=== PATIENT | female | born 1940 | race Caucasian/White ===

== ENCOUNTER 2016-06-01 09:47 | Observation (INO) ==
[2016-06-01] MEDS ORDERED: Ondansetron 4 MG/2 ML VIAL IV ONE (10:22)
[2016-06-01] MEDS ORDERED: 0.9 % Sodium Chloride 500 ML IV ONE (10:22)
[2016-06-01] MEDS ORDERED: *HR* HYDROmorphone (PF) 1 MG/ML SYRINGE IV ONE (10:22)
--- NOTE | 2016-06-01 10:28 | Emergency Department Note ---
Disposition Clinical Impression: Elevated troponin, Weakness, Hypokalemia, Opiate withdrawal Disposition: Admitted As Inpatient Condition: Fair Referrals: NO,PCP [Primary Care Provider] - Forms: ED Satisfaction Letter Time of Disposition: 15:24 Weakness HPI - General Chief complaint: ED Fall Stated complaint: fall Time Seen by Provider: 06/01/16 10:17 Source: patient, EMS Mode of arrival: EMS Nursing Notes Reviewed: Yes Vital Signs Reviewed: Yes - History of Present Illness Pt Subjective Complaint: generalized weakness/fatigue, other (Fall) Onset (ago): Just MOONER (Patient's fall was prior to arrival. She states she got weak while trying to ambulate without her walker and fell down onto her [place] and now has tailbone pain. Her weakness has been going on for a little bit more than a week. It started the day after she ran out of her chronic pain medications and has been unable to get them refilled since then.) Duration: constant Location: generalized Pain Severity: severe (She has tailbone pain that is severe since the fall this morning but has generalized arthritis pain that has been progressively worsening since running out of her pain medications a little over a week ago.) Pain Scale: 10 If pain, quality: sharp Improves with: none Worsens with: movement Associated symptoms: Reports: nausea/vomiting, myalgias, other (Other than the tailbone pain, the patient denies any injuries as a result of the fall. She denies striking her head. She denies any loss of consciousness.) - Related Data Home Medications Medication Instructions Recorded Confirmed Citalopram Hydrobromide [Celexa] 20 mg PO DAILY 06/01/16 06/01/16 Diltiazem CD (24hr) [Cardizem CD] 240 mg PO DAILY 06/01/16 06/01/16 Furosemide [Lasix] 20 mg PO DAILY 06/01/16 06/01/16 Meclizine HCl [Verticalm] 25 mg PO BID PRN 06/01/16 06/01/16 Omeprazole [PriLOSEC] 20 mg PO DAILY 06/01/16 06/01/16 Potassium Chloride [Klor-Con 10 meq PO BID 06/01/16 06/01/16 Sprinkle] Simvastatin [Zocor] 20 mg PO HS 06/01/16 06/01/16 Zolpidem [Ambien] 5 mg PO HS 06/01/16 06/01/16 Allergies Allergy/AdvReac Type Severity Reaction Status Date / Time morphine Allergy Nausea Verified 06/01/16 12:10 All systems ED: reviewed and negative except as stated. Constitutional: Denies: fever, chills ENT ED: Denies: ear pain, throat pain, congestion Cardiovascular: Denies: chest pain, palpitations, dyspnea on exertion, syncope Respiratory: Denies: cough, dyspnea, wheezes Gastrointestinal: Reports: nausea. Denies: abdominal pain, diarrhea Musculoskeletal: Reports: back pain (Tailbone). Denies: neck pain Integumentary: Denies: rash Neurological: Reports: weakness (Generalized). Denies: headache Past Medical History - Past Medical History Attestation: Yes The following information was validated with the patient. Source: patient, old records reviewed, obtained from family, nursing notes reviewed Medical history: Reports: CVA, fibromyalgia, GERD, hyperlipidemia, hypertension Surgical history: Reports: herniorrhaphy, hip replacement, hysterectomy, knee replacement - Social History Smoking Status: Never smoker Alcohol use: Reports: none Drug use: Reports: none Physical Exam - General Limitations: age General appearance: alert, in no apparent distress - Head Head exam: atraumatic, normocephalic - Eye Eye exam: Present: normal appearance, PERRL, EOMI - ENT ENT exam: normal exam, normal oropharynx, mucous membranes moist, normal external ear exam - Neck Neck exam: Present: normal inspection, full ROM. Absent: tenderness - Chest Chest inspection: Present: normal inspection, symmetric chest wall rise. Absent : tenderness - Respiratory Respiratory exam: Present: normal lung sounds bilaterally. Absent: respiratory distress - Cardiovascular Cardiovascular exam: Present: regular rate, normal rhythm, normal heart sounds - Abdominal Exam Abdominal exam: Present: soft, Non-Tender - Extremities Exam Extremities exam: Present: normal inspection, full ROM - Back Exam Back exam: Present: full ROM - Neurological Exam Neurological exam: Present: alert, oriented X3 - Psychiatric Psychiatric exam: Present: normal affect, normal mood - Skin Skin exam: Present: warm, dry, intact Course Course Narrative: Patient presents with a couple of issues. The predominant issue this morning was that she fell and landed on her buttocks and now has tailbone pain. We will image her back and tailbone and get her some medications for symptom relief. Second issue is that she is having what sounds like opiate withdrawal symptoms including generalized weakness, nausea, diffuse myalgias. She has significant chronic pain issues and has been on OxyContin for over 2 years. She states that she saw her pain management physician and he stopped the OxyContin. The pain medicines I gave her for her tailbone should help her acutely with withdrawal symptoms but she is going to need to have her chronic pain managed as well. I am going to do a workup to make sure there is no other cause of general weakness and nausea. I will have addiction social worker evaluate the patient as well. - Reevaluation(s) Reevaluation #1: Patient presents after a fall at home. There is no sign of mechanical injury after the fall based on evaluation and imaging. A lot of her symptoms certainly do sound like opiate withdrawal given that she was on 80 mg of OxyContin and abruptly discontinued from it about a week ago. She is having some nausea and some diarrhea. However I do not feel that her weakness is entirely related to that. She has an elevated white count 20,000 although I cannot find a source of infection. She also has an elevated troponin. She also has hypokalemia. I spoke to the hospitalist and we will arrange to admit the patient to the hospital. Time: 15:23 - Consultations Consultation #1: Dr. Rodriguez, hospitalist - I discussed the case with the hospitalist. We talked about presentation and lab results. The patient has been accepted for admission. Time: 15:22 Vital Signs Temperature 98 F 06/01/16 09:49 Pulse Rate 50 06/01/16 09:49 Respiratory Rate 18 06/01/16 09:49 Blood Pressure 161/72 06/01/16 09:49 O2 Sat by Pulse Oximetry 96 06/01/16 09:49 Temperature 98 F 06/01/16 09:49 Pulse Rate 70 06/01/16 14:48 Respiratory Rate 16 06/01/16 14:48 Blood Pressure 149/74 06/01/16 14:48 O2 Sat by Pulse Oximetry 95 06/01/16 14:48 Oxygen Delivery Oxygen Delivery Nasal Cannula Weakness - Lab Data Result diagrams: 06/01/16 10:50 06/01/16 10:50 Lab Results 06/01/16 06/01/16 06/01/16 Range/Units 10:50 10:50 10:50 WBC 20.1 H (4.3-11.1) K/mcL RBC 5.24 H (3.82-4.97) M/mcL Hgb 15.5 H (11.5-15.4) g/dL Hct 46.1 H (35.3-44.9) % MCV 88.0 (83.0-100.0) fL MCH 29.6 (28.0-33.3) pg MCHC 33.6 (31.6-35.5) g/dL RDW 12.9 (11.5-14.5) % Plt Count 488 H (140-400) K/mcL MPV 9.5 (9.4-12.4) fL Immature Gran % 0.4 (0-4) % Seg Neutrophils % 87.6 % Lymphocytes % 6.6 % Monocytes % 5.2 % Eosinophils % 0.0 % Basophils % 0.2 % Neutrophils # 17.6 H (1.6-8.9) K/mcL Lymphocytes # 1.3 (0.6-4.6) K/mcL Monocytes # 1.1 (0.0-1.3) K/mcL Eosinophils # 0.0 (0.0-0.6) K/mcL Basophils # 0.0 (0.0-0.2) K/mcL Sodium 135 L (136-145) mEq/L Potassium 2.4 L* (3.5-4.5) mEq/L Chloride 94 L (98-109) mEq/L Carbon Dioxide 21 (19-29) mEq/L BUN 12 (7-20) mg/dL Creatinine 1.11 (0.57-1.11) mg/dL Est GFR ( Amer) 58 L (> 60) Est GFR (Non-Af Amer) 48 L (> 60) BUN/Creatinine Ratio 11 (6-26) Glucose 154 H (70-99) mg/dL Calculated Osmolality 283 (280-300) Lactic Acid (0.5-2.2) mmol/L Calcium 10.1 (8.6-10.8) mg/dL Total Bilirubin 1.1 (0.2-1.2) mg/dL Direct Bilirubin 0.4 (0.0-0.5) mg/dL Indirect Bilirubin 0.7 (0.0-1.2) mg/dL AST 36 H (5-34) Units/L ALT 30 (0-55) Units/L Alkaline Phosphatase 136 H (38-126) Units/L Troponin I 0.07 H* (0-0.03) ng/mL B-Natriuretic Peptide (0-100) pg/mL Serum Total Protein 7.8 (6.0-8.3) g/dL Albumin 4.4 (3.5-5.0) g/dL Globulin 3.4 (2.4-3.5) g/dL Albumin/Globulin Ratio 1.3 (1.1-2.2) Lipase 23 (8-78) Units/L Urine Color (Yellow) Urine Clarity (Clear) Urine pH (5.0-8.0) pH Units Ur Specific [place] (1.010-1.025) Urine Protein (Neg-Trace) mg/dL Urine Glucose (UA) (Normal) mg/dL Urine Ketones (Negative) mg/dL Urine Blood (Negative) Urine Nitrite (Negative) Urine Bilirubin (Negative) Urine Urobilinogen (Normal) mg/dL Ur Leukocyte Esterase (Negative) Urine Microscopic RBC (0-3) per hpf Urine Microscopic WBC (0-3) per hpf Ur Squamous Epith Cells (None-Few) per lpf Urine Bacteria (None-Few) per hpf Hyaline Casts (None-Few) per lpf Urine Mucus (Few) Ur Culture Indicated? (NO) Specimen Rejected 06/01/16 06/01/16 06/01/16 Range/Units 10:50 10:50 11:37 WBC (4.3-11.1) K/mcL RBC (3.82-4.97) M/mcL Hgb (11.5-15.4) g/dL Hct (35.3-44.9) % MCV (83.0-100.0) fL MCH (28.0-33.3) pg MCHC (31.6-35.5) g/dL RDW (11.5-14.5) % Plt Count (140-400) K/mcL MPV (9.4-12.4) fL Immature Gran % (0-4) % Seg Neutrophils % % Lymphocytes % % Monocytes % % Eosinophils % % Basophils % % Neutrophils # (1.6-8.9) K/mcL Lymphocytes # (0.6-4.6) K/mcL Monocytes # (0.0-1.3) K/mcL Eosinophils # (0.0-0.6) K/mcL Basophils # (0.0-0.2) K/mcL Sodium (136-145) mEq/L Potassium (3.5-4.5) mEq/L Chloride (98-109) mEq/L Carbon Dioxide (19-29) mEq/L BUN (7-20) mg/dL Creatinine (0.57-1.11) mg/dL Est GFR ( Amer) (> 60) Est GFR (Non-Af Amer) (> 60) BUN/Creatinine Ratio (6-26) Glucose (70-99) mg/dL Calculated Osmolality (280-300) Lactic Acid 1.2 (0.5-2.2) mmol/L Calcium (8.6-10.8) mg/dL Total Bilirubin (0.2-1.2) mg/dL Direct Bilirubin (0.0-0.5) mg/dL Indirect Bilirubin (0.0-1.2) mg/dL AST (5-34) Units/L ALT (0-55) Units/L Alkaline Phosphatase (38-126) Units/L Troponin I (0-0.03) ng/mL B-Natriuretic Peptide 181 H (0-100) pg/mL Serum Total Protein (6.0-8.3) g/dL Albumin (3.5-5.0) g/dL Globulin (2.4-3.5) g/dL Albumin/Globulin Ratio (1.1-2.2) Lipase (8-78) Units/L Urine Color (Yellow) Urine Clarity (Clear) Urine pH (5.0-8.0) pH Units Ur Specific [place] (1.010-1.025) Urine Protein (Neg-Trace) mg/dL Urine Glucose (UA) (Normal) mg/dL Urine Ketones (Negative) mg/dL Urine Blood (Negative) Urine Nitrite (Negative) Urine Bilirubin (Negative) Urine Urobilinogen (Normal) mg/dL Ur Leukocyte Esterase (Negative) Urine Microscopic RBC (0-3) per hpf Urine Microscopic WBC (0-3) per hpf Ur Squamous Epith Cells (None-Few) per lpf Urine Bacteria (None-Few) per hpf Hyaline Casts (None-Few) per lpf Urine Mucus (Few) Ur Culture Indicated? (NO) Specimen Rejected Hemolyzed 06/01/16 Range/Units 14:31 WBC (4.3-11.1) K/mcL RBC (3.82-4.97) M/mcL Hgb (11.5-15.4) g/dL Hct (35.3-44.9) % MCV (83.0-100.0) fL MCH (28.0-33.3) pg MCHC (31.6-35.5) g/dL RDW (11.5-14.5) % Plt Count (140-400) K/mcL MPV (9.4-12.4) fL Immature Gran % (0-4) % Seg Neutrophils % % Lymphocytes % % Monocytes % % Eosinophils % % Basophils % % Neutrophils # (1.6-8.9) K/mcL Lymphocytes # (0.6-4.6) K/mcL Monocytes # (0.0-1.3) K/mcL Eosinophils # (0.0-0.6) K/mcL Basophils # (0.0-0.2) K/mcL Sodium (136-145) mEq/L Potassium (3.5-4.5) mEq/L Chloride (98-109) mEq/L Carbon Dioxide (19-29) mEq/L BUN (7-20) mg/dL Creatinine (0.57-1.11) mg/dL Est GFR ( Amer) (> 60) Est GFR (Non-Af Amer) (> 60) BUN/Creatinine Ratio (6-26) Glucose (70-99) mg/dL Calculated Osmolality (280-300) Lactic Acid (0.5-2.2) mmol/L Calcium (8.6-10.8) mg/dL Total Bilirubin (0.2-1.2) mg/dL Direct Bilirubin (0.0-0.5) mg/dL Indirect Bilirubin (0.0-1.2) mg/dL AST (5-34) Units/L ALT (0-55) Units/L Alkaline Phosphatase (38-126) Units/L Troponin I (0-0.03) ng/mL B-Natriuretic Peptide (0-100) pg/mL Serum Total Protein (6.0-8.3) g/dL Albumin (3.5-5.0) g/dL Globulin (2.4-3.5) g/dL Albumin/Globulin Ratio (1.1-2.2) Lipase (8-78) Units/L Urine Color Yellow (Yellow) Urine Clarity Clear (Clear) Urine pH 6.0 (5.0-8.0) pH Units Ur Specific [place] 1.025 (1.010-1.025) Urine Protein 100 H (Neg-Trace) mg/dL Urine Glucose (UA) Normal (Normal) mg/dL Urine Ketones Negative (Negative) mg/dL Urine Blood Moderate H (Negative) Urine Nitrite Negative (Negative) Urine Bilirubin Negative (Negative) Urine Urobilinogen Normal (Normal) mg/dL Ur Leukocyte Esterase Negative (Negative) Urine Microscopic RBC 3-5 H (0-3) per hpf Urine Microscopic WBC 3-5 H (0-3) per hpf Ur Squamous Epith Cells Many H (None-Few) per lpf Urine Bacteria Many H (None-Few) per hpf Hyaline Casts Moderate H (None-Few) per lpf Urine Mucus Many H (Few) Ur Culture Indicated? NO (NO) Specimen Rejected
[2016-06-01 10:57] LABS: Basophils % 0.2 %; Hematocrit 46.1 % (35.3-44.9); Hemoglobin 15.5 g/dL (11.5-15.4); Immature Granulocytes % 0.4 % (0-4); Lymphocytes # 1.3 K/mcL (0.6-4.6); Lymphocytes % 6.6 %; Mean Corpuscular HGB Conc 33.6 g/dL (31.6-35.5); Mean Corpuscular Hemoglobin 29.6 pg (28.0-33.3); Mean Platelet Volume 9.5 fL (9.4-12.4); Monocytes # 1.1 K/mcL (0.0-1.3); Monocytes % 5.2 %; Neutrophils # 17.6 K/mcL (1.6-8.9); Platelet Count 488 K/mcL (140-400); Red Blood Count 5.24 M/mcL (3.82-4.97); Red Cell Distribution Width 12.9 % (11.5-14.5); Segmented Neutrophils % 87.6 %
[2016-06-01 11:11] LABS: Albumin 4.4 g/dL (3.5-5.0); Albumin/Globulin Ratio 1.3 (1.1-2.2); Bilirubin,Direct 0.4 mg/dL (0.0-0.5); Bilirubin,Indirect 0.7 mg/dL (0.0-1.2); Bilirubin,Total 1.1 mg/dL (0.2-1.2); Calcium 10.1 mg/dL (8.6-10.8); Globulin 3.4 g/dL (2.4-3.5); Total Protein 7.8 g/dL (6.0-8.3)
[2016-06-01 11:14] LABS: Potassium 2.4 mEq/L (3.5-4.5)
[2016-06-01] MEDS ORDERED: Potassium Effervescent 25 MEQ TABLET.EFF PO ONE (11:56)
[2016-06-01 14:51] LABS: Bilirubin,Urine Negative (Negative); Blood,Urine Moderate (Negative); Clarity,Urine Clear (Clear); Color,Urine Yellow (Yellow); Glucose,Urine (UA) Normal (Normal); Ketones,Urine Negative (Negative); Leukocyte Esterase,Urine Negative (Negative); Nitrite,Urine Negative (Negative); Protein,Urine 100 mg/dL (Neg-Trace); Specific Gravity,Urine 1.025 (1.010-1.025); Urobilinogen,Urine Normal (Normal)
[2016-06-01 15:18] LABS: Bacteria,Urine Many per hpf (None-Few); Squamous Epithelial Cell,Urine Many per lpf (None-Few)
[2016-06-01 15:19] LABS: Hyaline Casts,Urine Moderate per lpf (None-Few); Mucus,Urine Many (Few)
[2016-06-01] MEDS ORDERED: Naloxone 0.4 MG/ML INJ IVP PRN (17:46)
[2016-06-01] MEDS ORDERED: Ondansetron ODT 4 MG TAB.RAPDIS SL PRN (17:46)
[2016-06-01] MEDS ORDERED: Ibuprofen 400 MG TABLET PO PRN (17:46)
--- NOTE | 2016-06-01 17:55 | Internal Med History&Physical ---
<Dayami Ocampo M - Last Filed: 06/01/16 20:08> Date of Encounter: 06/01/16 Time of Encounter: 17:51 Assessment and Plan (1) Elevated troponin Current visit: Yes Status: Acute Troponin of 0.07, EKG with normal sinus rhythm with PVCs and non-specific ST changes Patient denies chest pain Serial troponins for trend. Continuous potline monitor titrate oxygen to maintain O2 sat > 92% (2) Opiate withdrawal Current visit: Yes Status: Acute Patient reports she was taking 20mg of oxycontin QID for 2 years for chronic pain related to fibromyalgia and osteoarthritis. She ran out of her medicine 2 weeks ago and was unable to get new prescriptions from the new pain management provider assigned to her. She appears to be having withdrawal symptoms with nausea, vomiting, diarrhea, chills, sweats, abdominal pain. 5mg oxycodone Q6hr PRN 0.5mg Dilaudid IVP Q4hr PRN Zofran prn for nausea Will need to get established with a local automobile painter outpatient. (3) Hypokalemia Current visit: Yes Status: Acute potassium of 2.4. Likely related to poor oral intake, vomiting and diarrhea over the last 2 weeks. ED gave 50 mEq of potassium PO Will give 40 mEq of IVPB potassium Recheck chemistry in the morning. Continuous potline monitor (4) Weakness Current visit: Yes Status: Acute Patient reporting increasing weakness over the last 2 weeks since running out of her pain medication. Likely related to poor oral intake, nausea and vomiting as a result of opioid withdrawal. Will give IV fluids 0.9NS at 100mL/hr Electrolyte replacement Zofran for nausea and oxycodone and dilaudid for pain management and to ease withdrawal. Monitor for improvement in weakness. Consult to PT and OT (5) Leukocytosis Current visit: Yes Status: Acute Elevated WBC of 20.1. Patient denies cough, dysuria. UA looks contaminated, but negative for infection. CXR negative for any acute abnormality. Will repeat UA with straight cath. Repeat CBC in the morning. Qualifiers: Leukocytosis type: bandemia Qualified Code(s): D72.825 - Bandemia (6) DVT prophylaxis Current visit: Yes Status: Acute encourage ambulation anti-embolic stockings Heparin 5,000u SQ BID Internal Medicine - H&P: HPI Chief complaint: weakness Admitted From: Emergency Dept Plans for Post Hospital Care: Home History of present illness: Ms. Cooper is a 76 year old female with history of CVA, fibromyalgia, GERD, HTN, Hyperlipidemia who presented to the ED today after falling and landing on her buttocks. She reports she has been feeling awful for 2 weeks, after running out of her pain medicine. Her pain management provider left the practice and she reports the provider she was assigned to after he left did not continue her prescription for oxycontin, which she was taking 20mg QID. She has been having nausea, vomiting, diarrhea, chills, sweats, body aches, headaches, abdominal pain for the past 2 weeks and increasing weakness. She denies chest pain, palpitations, or dysuria. When she fell today due to her weakness, she decided it was time to come in to the ED. Evaluation in the ED was significant for elevated troponin to 0.07, hypokalemia with potassium of 2.4 , leukocytosis with WBC of 20. Chest Xray showed no acute cardiopulmonary disease. CT of lumbar spine showed no acute abnormality in the lumbar spine, as well as severe scoliosis and multilevel degenerative changes which are stable. UA was negative, but looked contaminated. On exam, she is alert and oriented, in no distress. Heart had regular rate and rhythm, lungs are clear bilaterally. Past Med Surg Social Fam HX - Past Medical History Medical history: CVA, fibromyalgia, GERD, hyperlipidemia, hypertension - Past Surgical History Surgical History: herniorrhaphy, hip replacement, hysterectomy, knee replacement - Social History Smoking Status: Never smoker Alcohol use: none Drug use: none - Family History Mother Race: Living Status: Age at : 76 Father Living Status: Age at : 63 Cause of : Cancer Internal Medicine - H&P: Meds Citalopram Hydrobromide [Celexa] 20 mg PO DAILY 06/01/16 [History] Diltiazem CD (24hr) [Cardizem CD] 240 mg PO DAILY 06/01/16 [History] Furosemide [Lasix] 20 mg PO DAILY 06/01/16 [History] Meclizine HCl [Verticalm] 25 mg PO BID PRN 06/01/16 [History] Omeprazole [PriLOSEC] 20 mg PO DAILY 06/01/16 [History] Potassium Chloride [Klor-Con Sprinkle] 10 meq PO BID 06/01/16 [History] Simvastatin [Zocor] 20 mg PO HS 06/01/16 [History] Zolpidem [Ambien] 5 mg PO HS 06/01/16 [History] Allergies morphine Allergy (Verified 06/01/16 12:10) Nausea All Systems PM: A 10-system review of systems was performed and is negative for pertinent findings except as documented above in the HPI. - Constitutional Constitutional: chills, fever(s), falls, night sweats, weakness - EENT Eyes: no change in vision, no discharge, no pain, no photophobia Ears: tinnitus Nose, mouth and throat: no dysphagia, no nasal discharge, no neck pain, no sore throat - Cardiovascular Cardiovascular ROS IM: diaphoresis, lightheadedness, no chest pain, no dyspnea, no palpitations, no syncope - Respiratory Respiratory: no cough, no dyspnea, no wheezing, no excessive phlegm production - Gastrointestinal Gastrointestinal: abdominal pain, diarrhea, nausea, vomiting, no hematemesis, no hematochezia, no melena - Genitourinary Genitourinary: no change in urinary stream, no dysuria, no flank pain, no hematuria - Musculoskeletal Musculoskeletal ROS IM: back pain, muscle weakness (generalized), no numbness, no tingling - Integumentary Integumentary IM: no rash, no unusual bruising - Neurological Neurological ROS: no confusion, no convulsions, no focal weakness, no numbness, no tingling, no tremor(s) - Hematologic/Lymphatic Hematologic/Lymphatic: no easy bruising - Constitutional Vitals: Temp Pulse Resp BP Pulse Ox 98 F 70 18 158/72 95 06/01/16 09:49 06/01/16 14:48 06/01/16 16:36 06/01/16 16:36 06/01/16 14:48 General appearance: Present: A&O X 3, no acute distress - Head Head exam: Present: atraumatic, normocephalic - Eye Eye exam: Present: PERRL, conjuntiva pink, sclera anicteric Pupils: Present: PERRL - Neck Neck exam general surgery: Present: supple, trachea midline. Absent: lymphadenopathy - Respiratory Respiratory exam: Present: CTAB. Absent: accessory muscle use, rales, rhonchi, wheezes - Cardiovascular Cardiovascular exam: Present: RRR, +S1, +S2. Absent: diastolic murmur, gallop, rubs, systolic murmur - GI/Abdominal GI/Abdominal exam: Present: normal bowel sounds, soft, no peritoneal signs. Absent: distended, tenderness - Extremities Exam Extremities exam: Present: warm, radial pulses palpable and symetrical. Absent : calf tenderness, cyanotic, pedal edema - Neurological Exam Neurological exam: Present: CN II-XII intact, oriented X3, no focal deficits. Absent: facial droop, speech deficit - Skin Skin exam: Present: dry, intact Internal Med - H&P Results - Labs CBC & Chem 7: 06/01/16 10:50 06/01/16 10:50 Labs: All Lab Results (24 Hours) 06/01/16 06/01/16 06/01/16 Range/Units 10:50 10:50 10:50 WBC 20.1 H (4.3-11.1) K/mcL RBC 5.24 H (3.82-4.97) M/mcL Hgb 15.5 H (11.5-15.4) g/dL Hct 46.1 H (35.3-44.9) % MCV 88.0 (83.0-100.0) fL MCH 29.6 (28.0-33.3) pg MCHC 33.6 (31.6-35.5) g/dL RDW 12.9 (11.5-14.5) % Plt Count 488 H (140-400) K/mcL MPV 9.5 (9.4-12.4) fL Immature Gran % 0.4 (0-4) % Seg Neutrophils % 87.6 % Lymphocytes % 6.6 % Monocytes % 5.2 % Eosinophils % 0.0 % Basophils % 0.2 % Neutrophils # 17.6 H (1.6-8.9) K/mcL Lymphocytes # 1.3 (0.6-4.6) K/mcL Monocytes # 1.1 (0.0-1.3) K/mcL Eosinophils # 0.0 (0.0-0.6) K/mcL Basophils # 0.0 (0.0-0.2) K/mcL Sodium 135 L (136-145) mEq/L Potassium 2.4 L* (3.5-4.5) mEq/L Chloride 94 L (98-109) mEq/L Carbon Dioxide 21 (19-29) mEq/L BUN 12 (7-20) mg/dL Creatinine 1.11 (0.57-1.11) mg/dL Est GFR ( Amer) 58 L (> 60) Est GFR (Non-Af Amer) 48 L (> 60) BUN/Creatinine Ratio 11 (6-26) Glucose 154 H (70-99) mg/dL Calculated Osmolality 283 (280-300) Lactic Acid (0.5-2.2) mmol/L Calcium 10.1 (8.6-10.8) mg/dL Total Bilirubin 1.1 (0.2-1.2) mg/dL Direct Bilirubin 0.4 (0.0-0.5) mg/dL Indirect Bilirubin 0.7 (0.0-1.2) mg/dL AST 36 H (5-34) Units/L ALT 30 (0-55) Units/L Alkaline Phosphatase 136 H (38-126) Units/L Troponin I 0.07 H* (0-0.03) ng/mL B-Natriuretic Peptide (0-100) pg/mL Serum Total Protein 7.8 (6.0-8.3) g/dL Albumin 4.4 (3.5-5.0) g/dL Globulin 3.4 (2.4-3.5) g/dL Albumin/Globulin Ratio 1.3 (1.1-2.2) Lipase 23 (8-78) Units/L Urine Color (Yellow) Urine Clarity (Clear) Urine pH (5.0-8.0) pH Units Ur Specific [place] (1.010-1.025) Urine Protein (Neg-Trace) mg/dL Urine Glucose (UA) (Normal) mg/dL Urine Ketones (Negative) mg/dL Urine Blood (Negative) Urine Nitrite (Negative) Urine Bilirubin (Negative) Urine Urobilinogen (Normal) mg/dL Ur Leukocyte Esterase (Negative) Urine Microscopic RBC (0-3) per hpf Urine Microscopic WBC (0-3) per hpf Ur Squamous Epith Cells (None-Few) per lpf Urine Bacteria (None-Few) per hpf Hyaline Casts (None-Few) per lpf Urine Mucus (Few) Ur Culture Indicated? (NO) Specimen Rejected 06/01/16 06/01/16 06/01/16 Range/Units 10:50 10:50 11:37 WBC (4.3-11.1) K/mcL RBC (3.82-4.97) M/mcL Hgb (11.5-15.4) g/dL Hct (35.3-44.9) % MCV (83.0-100.0) fL MCH (28.0-33.3) pg MCHC (31.6-35.5) g/dL RDW (11.5-14.5) % Plt Count (140-400) K/mcL MPV (9.4-12.4) fL Immature Gran % (0-4) % Seg Neutrophils % % Lymphocytes % % Monocytes % % Eosinophils % % Basophils % % Neutrophils # (1.6-8.9) K/mcL Lymphocytes # (0.6-4.6) K/mcL Monocytes # (0.0-1.3) K/mcL Eosinophils # (0.0-0.6) K/mcL Basophils # (0.0-0.2) K/mcL Sodium (136-145) mEq/L Potassium (3.5-4.5) mEq/L Chloride (98-109) mEq/L Carbon Dioxide (19-29) mEq/L BUN (7-20) mg/dL Creatinine (0.57-1.11) mg/dL Est GFR ( Amer) (> 60) Est GFR (Non-Af Amer) (> 60) BUN/Creatinine Ratio (6-26) Glucose (70-99) mg/dL Calculated Osmolality (280-300) Lactic Acid 1.2 (0.5-2.2) mmol/L Calcium (8.6-10.8) mg/dL Total Bilirubin (0.2-1.2) mg/dL Direct Bilirubin (0.0-0.5) mg/dL Indirect Bilirubin (0.0-1.2) mg/dL AST (5-34) Units/L ALT (0-55) Units/L Alkaline Phosphatase (38-126) Units/L Troponin I (0-0.03) ng/mL B-Natriuretic Peptide 181 H (0-100) pg/mL Serum Total Protein (6.0-8.3) g/dL Albumin (3.5-5.0) g/dL Globulin (2.4-3.5) g/dL Albumin/Globulin Ratio (1.1-2.2) Lipase (8-78) Units/L Urine Color (Yellow) Urine Clarity (Clear) Urine pH (5.0-8.0) pH Units Ur Specific [place] (1.010-1.025) Urine Protein (Neg-Trace) mg/dL Urine Glucose (UA) (Normal) mg/dL Urine Ketones (Negative) mg/dL Urine Blood (Negative) Urine Nitrite (Negative) Urine Bilirubin (Negative) Urine Urobilinogen (Normal) mg/dL Ur Leukocyte Esterase (Negative) Urine Microscopic RBC (0-3) per hpf Urine Microscopic WBC (0-3) per hpf Ur Squamous Epith Cells (None-Few) per lpf Urine Bacteria (None-Few) per hpf Hyaline Casts (None-Few) per lpf Urine Mucus (Few) Ur Culture Indicated? (NO) Specimen Rejected Hemolyzed 06/01/16 Range/Units 14:31 WBC (4.3-11.1) K/mcL RBC (3.82-4.97) M/mcL Hgb (11.5-15.4) g/dL Hct (35.3-44.9) % MCV (83.0-100.0) fL MCH (28.0-33.3) pg MCHC (31.6-35.5) g/dL RDW (11.5-14.5) % Plt Count (140-400) K/mcL MPV (9.4-12.4) fL Immature Gran % (0-4) % Seg Neutrophils % % Lymphocytes % % Monocytes % % Eosinophils % % Basophils % % Neutrophils # (1.6-8.9) K/mcL Lymphocytes # (0.6-4.6) K/mcL Monocytes # (0.0-1.3) K/mcL Eosinophils # (0.0-0.6) K/mcL Basophils # (0.0-0.2) K/mcL Sodium (136-145) mEq/L Potassium (3.5-4.5) mEq/L Chloride (98-109) mEq/L Carbon Dioxide (19-29) mEq/L BUN (7-20) mg/dL Creatinine (0.57-1.11) mg/dL Est GFR ( Amer) (> 60) Est GFR (Non-Af Amer) (> 60) BUN/Creatinine Ratio (6-26) Glucose (70-99) mg/dL Calculated Osmolality (280-300) Lactic Acid (0.5-2.2) mmol/L Calcium (8.6-10.8) mg/dL Total Bilirubin (0.2-1.2) mg/dL Direct Bilirubin (0.0-0.5) mg/dL Indirect Bilirubin (0.0-1.2) mg/dL AST (5-34) Units/L ALT (0-55) Units/L Alkaline Phosphatase (38-126) Units/L Troponin I (0-0.03) ng/mL B-Natriuretic Peptide (0-100) pg/mL Serum Total Protein (6.0-8.3) g/dL Albumin (3.5-5.0) g/dL Globulin (2.4-3.5) g/dL Albumin/Globulin Ratio (1.1-2.2) Lipase (8-78) Units/L Urine Color Yellow (Yellow) Urine Clarity Clear (Clear) Urine pH 6.0 (5.0-8.0) pH Units Ur Specific [place] 1.025 (1.010-1.025) Urine Protein 100 H (Neg-Trace) mg/dL Urine Glucose (UA) Normal (Normal) mg/dL Urine Ketones Negative (Negative) mg/dL Urine Blood Moderate H (Negative) Urine Nitrite Negative (Negative) Urine Bilirubin Negative (Negative) Urine Urobilinogen Normal (Normal) mg/dL Ur Leukocyte Esterase Negative (Negative) Urine Microscopic RBC 3-5 H (0-3) per hpf Urine Microscopic WBC 3-5 H (0-3) per hpf Ur Squamous Epith Cells Many H (None-Few) per lpf Urine Bacteria Many H (None-Few) per hpf Hyaline Casts Moderate H (None-Few) per lpf Urine Mucus Many H (Few) Ur Culture Indicated? NO (NO) Specimen Rejected <Isac Luque R - Last Filed: 06/03/16 11:07> Date of Encounter: 06/01/16 Internal Medicine - H&P: HPI History of present illness: Ms. Cooper is a 76 year old female All Systems PM: A 10-system review of systems was performed and is negative for pertinent findings except as documented above in the HPI. - Constitutional Vitals: Temp Pulse Resp BP Pulse Ox 99.7 F H 66 16 128/75 95 06/03/16 07:57 06/03/16 07:57 06/03/16 07:57 06/03/16 07:57 06/03/16 07:57 Internal Med - H&P Results - Labs CBC & Chem 7: 06/03/16 05:50 06/03/16 05:50 Labs: Short CBC 06/03/16 Range/Units 05:50 WBC 9.7 (4.3-11.1) K/mcL Hgb 12.4 (11.5-15.4) g/dL Hct 37.0 (35.3-44.9) % Plt Count 248 (140-400) K/mcL Neutrophils # 7.8 (1.6-8.9) K/mcL BMP 06/02/16 06/03/16 12:59 05:50 Sodium 137 Potassium 3.4 L 3.0 L Chloride 98 Carbon Dioxide 29 BUN 7 Creatinine 0.72 Glucose 113 H Calcium 8.8 - Attending Attestation Medical decision-making was reviewed with the RESEARCH ENGINEER and agree with the treatment plan
[2016-06-01] MEDS: 0.9 % Sodium Chloride 1,000 ML IVC SCH (18:22)
[2016-06-01] MEDS ORDERED: Potassium Chloride 20 MEQ, Lidocaine 1% 2 ML in D5% in Water 250 ML IVPB ONE (18:29)
[2016-06-01] MEDS: *HR* HYDROmorphone (PF) 1 MG/ML SYRINGE IVP PRN (18:53)
[2016-06-01 19:05] LABS: Magnesium 1.7 mg/dL (1.6-2.6); Phosphorous 2.6 mg/dL (2.3-4.7)
[2016-06-01] MEDS: *HR* OxyCODONE Immed Rel 5 MG TABLET PO PRN (21:21)
[2016-06-02] MEDS: *HR* HYDROmorphone (PF) 1 MG/ML SYRINGE IVP PRN ×2 (01:01→09:06)
[2016-06-02 02:42] LABS: Basophils % 0.1 %; Eosinophils % 0.1 %; Hematocrit 40.6 % (35.3-44.9); Immature Granulocytes % 0.3 % (0-4); Lymphocytes # 1.2 K/mcL (0.6-4.6); Lymphocytes % 6.6 %; Mean Corpuscular HGB Conc 33.5 g/dL (31.6-35.5); Mean Corpuscular Hemoglobin 29.7 pg (28.0-33.3); Mean Corpuscular Volume 88.6 fL (83.0-100.0); Mean Platelet Volume 10.1 fL (9.4-12.4); Monocytes % 5.2 %; Neutrophils # 16.4 K/mcL (1.6-8.9); Platelet Count 380 K/mcL (140-400); Red Blood Count 4.58 M/mcL (3.82-4.97); Red Cell Distribution Width 12.9 % (11.5-14.5); Segmented Neutrophils % 87.7 %
[2016-06-02 02:44] LABS: Hemoglobin 13.6 g/dL (11.5-15.4)
[2016-06-02 02:48] LABS: BUN/Creatinine Ratio 16 (6-26); Blood Urea Nitrogen 12 mg/dL (7-20); Calcium 8.9 mg/dL (8.6-10.8); Carbon Dioxide 27 mEq/L (19-29); Chloride 95 mEq/L (98-109); Glucose 129 mg/dL (70-99); Osmolality,Calculated 285 (280-300); Potassium 2.6 mEq/L (3.5-4.5); Sodium 137 mEq/L (136-145); eGFR For African Americans > 60 (> 60); eGFR For Non-African Americans > 60 (> 60)
[2016-06-02] MEDS: *HR* OxyCODONE Immed Rel 5 MG TABLET PO PRN ×3 (05:00→20:43)
[2016-06-02 05:13] LABS: Bilirubin,Urine Negative (Negative); Blood,Urine Trace-lysed (Negative); Clarity,Urine Clear (Clear); Color,Urine Yellow (Yellow); Glucose,Urine (UA) Normal (Normal); Ketones,Urine Negative (Negative); Leukocyte Esterase,Urine Negative (Negative); Nitrite,Urine Negative (Negative); PH,Urine 6.5 pH Units (5.0-8.0); Protein,Urine 100 mg/dL (Neg-Trace); Specific Gravity,Urine >= 1.030 (1.010-1.025); Urobilinogen,Urine Normal (Normal)
[2016-06-02 05:16] LABS: Bacteria,Urine Few per hpf (None-Few); Hyaline Casts,Urine Few per lpf (None-Few); Squamous Epithelial Cell,Urine Many per lpf (None-Few)
--- NOTE | 2016-06-02 06:48 | Electrocardiograph Report ---
Test Date: 2016-06-01 Pat Name: CHIQUITA AVILA Department: [id number] Room: 2A12 Gender: F Supply Planner: : [id number] Requested By: Asad Guzman Order Number: [id number] Reading MD: Aric Iglesias MD Measurements Intervals [place] Rate: 82 P: 74 [place]: 175 QRS: -34 QRSD: 92 T: 3 QT: 424 QTc: 463 Interpretive Statements SINUS RHYTHM WITH FREQUENT VENTRICULAR PREMATURE COMPLEXES WITH FREQUENT SUPRAVENTRICULAR PREMATURE COMPLEXES IN A BIGEMINAL PA MARKED LEFT AXIS DEVIATION NONSPECIFIC ST \T\ T-WAVE ABNORMALITY Electronically Signed On 06-02-16 06:48:21 EST by Aric Iglesias MD
[2016-06-02] MEDS: 0.9 % Sodium Chloride 1,000 ML IVC SCH (08:17)
[2016-06-02] MEDS: Diltiazem CD (24hr) 240 MG CAPSULE PO SCH (08:18)
[2016-06-02] MEDS: Furosemide 20 MG TABLET PO SCH (08:18)
[2016-06-02] MEDS ORDERED: Ondansetron ODT 4 MG TAB.RAPDIS SL PRN (11:20)
[2016-06-02] MEDS: Gabapentin 100 MG CAPSULE PO SCH ×3 (13:23→20:44)
--- NOTE | 2016-06-02 15:04 | Internal Med Progress Note ---
Date of Encounter: 06/02/16 Time of Encounter: 11:20 - Assessment and plan (1) Elevated troponin Current Visit: Yes Status: Acute Assessment and plan: Trending down patient with no chest pain, EKG no new chnages Obtain Urine toxicology (2) Hypokalemia Current Visit: Yes Status: Acute Assessment and plan: Replaced Rpt chem today (3) Leukocytosis Current Visit: Yes Status: Acute Assessment and plan: Likely reactive, no current source of infection, patient denies urinary symptoms at this time Hydrate and monitor Qualifiers: Leukocytosis type: bandemia Qualified Code(s): D72.825 - Bandemia (4) Opiate withdrawal Current Visit: Yes Status: Acute Assessment and plan: Pain management consulted restarted on home meds at lower dose Patient will be interested in detox in the near future Monitor closely (5) Weakness Current Visit: Yes Status: Acute Assessment and plan: PT/OT consult (6) Hypertension Current Visit: Yes Status: Chronic Assessment and plan: Resume home meds Qualifiers: Hypertension type: essential hypertension Qualified Code(s): I10 - Essential (primary) hypertension - Subjective Interval history: 76 YO F with PMH of CVA with no residual deficits, Fibromyalgia, GERD, HTN, HLD admitted for management of severe hypokalemia following several bouts of nausea , vomiting and diarrhea. Diarrhea is brown watery, No melena, no hematochezia. Patient has been on high-dose arcades for at least 1 year until recently when pain management physician left the practice. She has since the been unabe lher prescptins. She is seen at bedside, no new complains Work up on admission revealed leukocytosis which is improving, hypokalemia, mildly elevated troponin. EKG, chest x-ray,lumbar CT unremarkable. There is some concern from family about patient being unable to care for self at home and need for home health versus ECF at time of discharge. she has no urinary symptoms - Constitutional Vitals: Temp Pulse Resp BP Pulse Ox 98.8 F 79 16 169/80 93 L 06/02/16 12:00 06/02/16 12:00 06/02/16 12:00 06/02/16 12:00 06/02/16 12:00 General appearance: Present: A&O X 3, pleasant, no acute distress - Head Head exam: Present: atraumatic - Eye Eye exam: Present: PERRL, conjuntiva pink, sclera anicteric - ENT ENT exam: Present: mucous membranes moist - Neck Neck exam general surgery: Present: normal inspection - Respiratory Respiratory exam: Present: CTAB - Cardiovascular Cardiovascular exam: Present: RRR, +S1, +S2. Absent: diastolic murmur, gallop, rubs, systolic murmur - GI/Abdominal GI/Abdominal exam: Present: normal bowel sounds, soft, no peritoneal signs. Absent: distended, tenderness - Extremities Exam Extremities exam: Present: warm, radial pulses palpable and symetrical. Absent : calf tenderness, cyanotic, pedal edema - Neurological Exam Neurological exam: Present: CN II-XII intact, oriented X3, no focal deficits. Absent: pronater drift, facial droop, speech deficit - Skin Skin exam: Present: dry Internal Medicine: Result - Labs CBC & Chem 7: 06/02/16 01:16 06/02/16 12:59 Labs: Short CBC 06/02/16 Range/Units 01:16 WBC 18.7 H (4.3-11.1) K/mcL Hgb 13.6 D (11.5-15.4) g/dL Hct 40.6 (35.3-44.9) % Plt Count 380 (140-400) K/mcL Neutrophils # 16.4 H (1.6-8.9) K/mcL BMP 06/02/16 06/02/16 01:16 12:59 Sodium 137 Potassium 2.6 L 3.4 L Chloride 95 L Carbon Dioxide 27 BUN 12 Creatinine 0.76 Glucose 129 H Calcium 8.9 Cardiac Enzymes 06/01/16 06/02/16 Range/Units 18:40 01:16 Troponin I 0.04 H* 0.03 (0-0.03) ng/mL Urine 06/02/16 Range/Units 05:06 Urine Color Yellow (Yellow) Urine Clarity Clear (Clear) Urine pH 6.5 (5.0-8.0) pH Units Ur Specific [place] >= 1.030 H (1.010-1.025) Urine Protein 100 H (Neg-Trace) mg/dL Urine Glucose (UA) Normal (Normal) mg/dL Consult Discharge Plan - Plan Referrals: NO,PCP [Primary Care Provider] -
[2016-06-02] MEDS: *HR* Heparin 5,000 UNIT/ML VIAL SQ SCH (19:10)
[2016-06-03] MEDS: *HR* OxyCODONE Immed Rel 5 MG TABLET PO PRN ×2 (04:21→14:23)
[2016-06-03 04:27] LABS: Amphetamine Screen,Urine Negative ng/mL (Cutoff=1000); Barbiturate Screen,Urine Negative ng/mL (Cutoff=200); Benzodiazepines Screen,Urine Negative ng/mL (Cutoff=200); Cannabinoid Screen,Urine Negative ng/mL (Cutoff = 50); Cocaine Screen,Urine Negative ng/mL (Cutoff= 300); Opiate Screen,Urine Positive ng/mL (Cutoff=300); Phencyclidine Screen,Urine Negative ng/mL (Cutoff=25)
[2016-06-03 06:07] LABS: Basophils % 0.2 %; Eosinophils # 0.1 K/mcL (0.0-0.6); Eosinophils % 1.1 %; Hemoglobin 12.4 g/dL (11.5-15.4); Immature Granulocytes % 0.4 % (0-4); Lymphocytes % 10.6 %; Mean Corpuscular HGB Conc 33.5 g/dL (31.6-35.5); Mean Corpuscular Hemoglobin 29.9 pg (28.0-33.3); Mean Corpuscular Volume 89.2 fL (83.0-100.0); Mean Platelet Volume 9.6 fL (9.4-12.4); Monocytes # 0.7 K/mcL (0.0-1.3); Monocytes % 6.8 %; Neutrophils # 7.8 K/mcL (1.6-8.9); Platelet Count 248 K/mcL (140-400); Red Blood Count 4.15 M/mcL (3.82-4.97); Red Cell Distribution Width 12.8 % (11.5-14.5); Segmented Neutrophils % 80.9 %
[2016-06-03 06:16] LABS: BUN/Creatinine Ratio 10 (6-26); Blood Urea Nitrogen 7 mg/dL (7-20); Calcium 8.8 mg/dL (8.6-10.8); Carbon Dioxide 29 mEq/L (19-29); Chloride 98 mEq/L (98-109); Glucose 113 mg/dL (70-99); Osmolality,Calculated 283 (280-300); Sodium 137 mEq/L (136-145); eGFR For African Americans > 60 (> 60); eGFR For Non-African Americans > 60 (> 60)
[2016-06-03] MEDS: Gabapentin 100 MG CAPSULE PO SCH ×3 (08:04→21:18)
[2016-06-03] MEDS: Diltiazem CD (24hr) 240 MG CAPSULE PO SCH (08:04)
[2016-06-03] MEDS: Furosemide 20 MG TABLET PO SCH (08:04)
[2016-06-03] MEDS: *HR* Heparin 5,000 UNIT/ML VIAL SQ SCH ×2 (08:04→21:23)
[2016-06-03] MEDS ORDERED: Potassium Chloride Elixir 20 MEQ/15 ML UDC PO ONE (08:23)
--- NOTE | 2016-06-03 13:43 | Internal Med Progress Note ---
Date of Encounter: 06/03/16 Time of Encounter: 10:40 - Assessment and plan (1) Elevated troponin Current Visit: Yes Status: Acute Assessment and plan: Trending down, now normal patient with no chest pain, EKG no new chnages Utox only opiates (2) Hypokalemia Current Visit: Yes Status: Acute Assessment and plan: IMproving Continue replacements, check potassium (3) Leukocytosis Current Visit: Yes Status: Acute Assessment and plan: Resolved Qualifiers: Leukocytosis type: bandemia Qualified Code(s): D72.825 - Bandemia (4) Opiate withdrawal Current Visit: Yes Status: Acute Assessment and plan: Improved Pain management consulted restarted on home meds at lower dose Patient will be interested in detox in the near future Monitor closely (5) Weakness Current Visit: Yes Status: Acute Assessment and plan: PT/OT consult, patient and family to decide ECF placement (6) Hypertension Current Visit: Yes Status: Chronic Assessment and plan: Resume home meds Qualifiers: Hypertension type: essential hypertension Qualified Code(s): I10 - Essential (primary) hypertension - Subjective Interval history: 76 YO F with PMH of CVA with no residual deficits, Fibromyalgia, GERD, HTN, HLD admitted for management of severe hypokalemia following opiate withdrawal symptoms(several bouts of nausea, vomiting and diarrhea) Patient see at bedside, diarrhea has since resolved, hypokalemia has improved Leukocytosis has resolved Patient is tolerating orally She is awaiting PT/OT review for discharge disposition and also pain management review - Constitutional Vitals: Temp Pulse Resp BP Pulse Ox 98.3 F 68 16 118/71 90 L 06/03/16 11:23 06/03/16 11:23 06/03/16 11:23 06/03/16 11:23 06/03/16 11:23 General appearance: Present: A&O X 3, pleasant, no acute distress - Head Head exam: Present: atraumatic, normocephalic - Eye Eye exam: Present: PERRL, conjuntiva pink, sclera anicteric Pupils: Present: PERRL - Neck Neck exam general surgery: Present: supple, trachea midline. Absent: lymphadenopathy - Respiratory Respiratory exam: Present: CTAB. Absent: accessory muscle use, rales, rhonchi, wheezes - Cardiovascular Cardiovascular exam: Present: RRR, +S1, +S2. Absent: diastolic murmur, gallop, rubs, systolic murmur - GI/Abdominal GI/Abdominal exam: Present: normal bowel sounds, soft, no peritoneal signs. Absent: distended, tenderness - Extremities Exam Extremities exam: Present: warm, radial pulses palpable and symetrical. Absent : calf tenderness, cyanotic, pedal edema - Neurological Exam Neurological exam: Present: CN II-XII intact, oriented X3, no focal deficits. Absent: pronater drift, facial droop, speech deficit - Skin Skin exam: Present: dry, intact Internal Medicine: Result - Labs CBC & Chem 7: 06/03/16 05:50 06/03/16 05:50 Labs: Short CBC 06/03/16 Range/Units 05:50 WBC 9.7 (4.3-11.1) K/mcL Hgb 12.4 (11.5-15.4) g/dL Hct 37.0 (35.3-44.9) % Plt Count 248 (140-400) K/mcL Neutrophils # 7.8 (1.6-8.9) K/mcL BMP 06/03/16 05:50 Sodium 137 Potassium 3.0 L Chloride 98 Carbon Dioxide 29 BUN 7 Creatinine 0.72 Glucose 113 H Calcium 8.8 Consult Discharge Plan - Plan Referrals: Jimbo Fonseca [Primary Care Provider] - 06/15/16 2:20 pm
[2016-06-04] MEDS: *HR* OxyCODONE Immed Rel 5 MG TABLET PO PRN ×2 (04:06→10:18)
[2016-06-04 06:02] LABS: Basophils % 0.3 %; Eosinophils # 0.2 K/mcL (0.0-0.6); Eosinophils % 2.5 %; Hematocrit 35.6 % (35.3-44.9); Hemoglobin 11.9 g/dL (11.5-15.4); Immature Granulocytes % 0.3 % (0-4); Lymphocytes # 1.1 K/mcL (0.6-4.6); Lymphocytes % 14.6 %; Mean Corpuscular HGB Conc 33.4 g/dL (31.6-35.5); Mean Corpuscular Hemoglobin 30.1 pg (28.0-33.3); Mean Corpuscular Volume 89.9 fL (83.0-100.0); Mean Platelet Volume 9.7 fL (9.4-12.4); Monocytes # 0.5 K/mcL (0.0-1.3); Monocytes % 6.6 %; Neutrophils # 5.9 K/mcL (1.6-8.9); Platelet Count 243 K/mcL (140-400); Red Blood Count 3.96 M/mcL (3.82-4.97); Red Cell Distribution Width 12.7 % (11.5-14.5); Segmented Neutrophils % 75.7 %
[2016-06-04 06:21] LABS: BUN/Creatinine Ratio 12 (6-26); Blood Urea Nitrogen 8 mg/dL (7-20); Carbon Dioxide 29 mEq/L (19-29); Chloride 98 mEq/L (98-109); Glucose 109 mg/dL (70-99); Magnesium 1.7 mg/dL (1.6-2.6); Osmolality,Calculated 283 (280-300); Potassium 3.4 mEq/L (3.5-4.5); Sodium 137 mEq/L (136-145); eGFR For African Americans > 60 (> 60); eGFR For Non-African Americans > 60 (> 60)
--- NOTE | 2016-06-04 09:18 | Pain Management Consultation ---
Date of Encounter: 06/04/16 Time of Encounter: 09:18 Assessment and Plan (1) Coccydynia Current Visit: Yes Status: Acute Recommend adjunctive analgesics for acute on chronic tailbone pain that may be related to a fracture of the coccyx. The patient should try to not put pressure on the area when sitting or lying. Expect healing and resolution of pain in a few weeks. If pain persists in the tailbone area, the patient should be evaluated for interventional options that could control any lingering pain related to a fracture. X-ray dedicated to the sacrum and coccyx could also be done, but I do not think it is necessary at this point. The assessment and plan as outlined above was discussed with the patient and/or family members who expressed understanding and agreement. All questions were answered. (2) Fibromyalgia Current Visit: Yes Status: Chronic The patient has widespread pain consistent with fibromyalgia. Opioid therapy is not first line for this diagnosis. There are several recommendations that can be made to help this patient through this difficult time. 1. opioid should be weaned to off. I am concerned about opioid induced hyperalgesia, a syndrome of increased and disproportionate pain secondary to chronic opioid use at relatively high doses. Recommend weaning of oxycodone 20 mg tablet by first changing the dose to 15 mg 4 times a day for two weeks, and then to 10 mg 4 times a day for two weeks, and then to 5 mg 4 times a day for two weeks, and then to 5 mg twice a day and then stop. The patient should be monitored for opioid withdrawal during the weaning process. However, the stepwise nature of the weaning showed virtually eliminate the risk of withdrawal syndrome. I recommend providing the patient with these prescriptions at the time of hospital discharge. 2. Recommend titration of either Lyrica or gabapentin. This medication has a stronger medication for control of her myalgia related to pain. Typical side effects of sedation, unsteadiness, and dizziness should be monitored for. If this should occur, the dose could be decreased or not increased at the very least. 3. Antidepressant medications also have a strong indication for fiber myalgia. The patient is currently taking Celexa, but this medication could be changed to Cymbalta which has a stronger analgesic effect. Cymbalta 60 mg per day is the maximum dose here. 4. Recommend also low-dose cardiovascular exercise once medication management has been done to be given to control her pain more reliably. Low-dose cardiovascular exercise could be exercises in a warm water pool, on a treadmill , for light land-based physical therapy. 5. The patient can also follow up with me for consideration of interventional procedures to control coccydynia if this pain syndrome does not resolve with fracture resolution. There are not strong indications for other interventional procedures to control fibromyalgia related pain at this point. The assessment and plan as outlined above was discussed with the patient and/or family members who expressed understanding and agreement. All questions were answered. History of Present Illness Chief complaint: pain all over HPI: Ms. Cooper is a 76 year old female suffering with pain all over her body. The patient was admitted to the hospital in the beginning part of the week after a fall from standing. She denies blacking out. She states that she simply fell. She landed on her buttock. She has experienced dramatically increased tailbone pain since that time. Prior to this fall, she was having pain all over her body. She was treated in chronic pain management by Dr. Cook who has done both interventional and medical therapy. Her medical therapy centers mostly on oxycodone 20 mg tablet, 1 tablet every 6 hours. The patient is regretful of this treatment. She states , "do not put any of your patients on that pill". When asked what she means by that, she states that she feels she is dependent on the medication and cannot stop taking it. She describes diarrhea and stomach cramps when she misses a dose. She does not seem to take adjunctive pain medications in addition to opioid. Despite the pain medication every 6 hours, she continues to be in severe pain that she grades 10/10. She describes the pain as an aching sensation in her arms, chest, back, and also her legs. She says there is radiating pain into her arms and legs at times, but this is not a prominent symptom. She states this pain has been present for 8-10 years. She denies any specific injury or inciting event, and she says the pain began gradually. She tells me that she has been treated with high-dose opioids for at least that long. Pain increases with walking and standing. Pain is better when lying on her side. Mostly, she is referring to the tailbone pain when she tells me that lying on her side is an alleviating factor. In terms of function, the patient indicates that she lives alone in a trailer home. She has neighbors that she considers like family and are helpful. She takes care of a small dog. She is able to move around her home easily without assistance from a walker or cane, but she does not routinely get around the neighborhood much at all. Past Med Surg Social Fam HX - Past Medical History Medical history: CVA, fibromyalgia, GERD, hyperlipidemia, hypertension - Past Surgical History Surgical History: herniorrhaphy, hip replacement, hysterectomy, knee replacement - Social History Smoking Status: Never smoker Alcohol use: none Drug use: none - Family History Mother Race: Living Status: Age at : 76 Father Living Status: Age at : 63 Cause of : Cancer Medications and Allergies Citalopram Hydrobromide [Celexa] 20 mg PO DAILY 06/01/16 [History] Diltiazem CD (24hr) [Cardizem CD] 240 mg PO DAILY 06/01/16 [History] Furosemide [Lasix] 20 mg PO DAILY 06/01/16 [History] Meclizine HCl [Verticalm] 25 mg PO BID PRN 06/01/16 [History] Omeprazole [PriLOSEC] 20 mg PO DAILY 06/01/16 [History] Potassium Chloride [Klor-Con Sprinkle] 10 meq PO BID 06/01/16 [History] Simvastatin [Zocor] 20 mg PO HS 06/01/16 [History] Zolpidem [Ambien] 5 mg PO HS 06/01/16 [History] Allergies morphine Allergy (Verified 06/01/16 12:10) Nausea Review of Systems - Constitutional Constitutional ROS IM: no photophobia, no phonophobia, no daytime sleepiness, no fever(s), no stops breathing during sleep - EENT Nose, mouth and throat: no headache(s), no neck pain, no neck trauma - Cardiovascular Cardiovascular ROS: no chest pain, no leg edema, no lightheadedness - Respiratory Respiratory: no pain on inspiration, no pain with cough - Gastrointestinal Gastrointestinal: no abdominal pain, no constipation, no diarrhea, no heartburn - Genitourinary Genitourinary ROS: no difficulty urinating, no flank pain, no urinary hesitancy - Musculoskeletal Musculoskeletal ROS: muscle weakness, numbness, tingling, no radiating pain into limb - Integumentary Integumentary: no erythema, no lesions, no swelling - Neurological Neurological ROS: no abnormal gait, no behavioral changes, no focal weakness, no radicular pain - Psychiatric Psychiatric general: no anxiety, no confusion, no depression - Hematologic/Lymphatic Hematologic/Lymphatic pediatric: no easy bleeding, no easy bruising Physical Exam Initial Vital Signs Temp Pulse Resp BP Pulse Ox 98 F 50 18 161/72 96 06/01/16 09:49 06/01/16 09:49 06/01/16 09:49 06/01/16 09:49 06/01/16 09:49 - General physical appearance General physical appearance: awake & oriented, well nourished, no distress - Eyes Eye exam: PERRL, normal ocular movement - ENT normal pinna, normal nares - Neck no masses, trachea midline - Respiratory normal respiratory effort, clear to percussion, clear to auscultation - Cardiovascular Cardiovascular exam: Present: no murmurs/rubs/gallops - Abdomen Abdomen: soft, non tender, bowel sounds - Integumentary Integumentary general surgery: no rash - Neurologic normal coordination - Musculoskeletal Musculoskeletal: other (musculature is generally tender to palpation in arms and legs, there is hyperalgesia present to palpation in arms and legs. Light touch does not show allodynia in any dermatome. ), normal posture - Psychiatric Psychiatric: oriented to time, oriented to person, oriented to place - Additional Findings EYES:: pupils equal and round, no myosis. SKIN:: no areas of echymoses or petechiae CARDIOVASCULAR:: regular rate and rhythm, no murmurs PULMONARY:: lung padron clear to auscultation bilaterally. Quiet, normal respiratory pattern. GASTROINTESTINAL:: active bowel sounds. MUSCULOSKELETAL:: INSPECTION:: no surgical scarring PALPATION:: palpation of coccyx is very painful, most painful area, midline. STRENGTH:: RIGHT hip flexors: 5/5 :: LEFT hip flexors: 5/5 RIGHT hip adduction 5/5 :: LEFT hip adduction 5/5 RIGHT hip abduction 5/5 :: LEFT hip abduction 5/5 RIGHT knee extension 5/5 :: LEFT knee extension 5/5 RIGHT knee flexion 5/5 :: LEFT knee flexion 5/5 RIGHT ankle dorsiflexion 5/5 :: LEFT ankle dorsiflexion 5/5 RIGHT ankle plantarflexion 5/5 :: LEFT ankle plantarflexion 5/5 RIGHT great toe dorsiflexion 5/5 :: LEFT great toe dorsiflexion 5/5 RIGHT great toe plantarflexion 5/5 :: LEFT great toe plantarflexion 5/5 RIGHT shoulder elevation 5/5 :: LEFT shoulder elevation 5/5 RIGHT elbow flexion 5/5 :: LEFT elbow flexion 5/5 RIGHT elbow extension 5/5 :: LEFT elbow extension 5/5 RIGHT wrist flexion 5/5:: LEFT wrist flexion 5/5 RIGHT wrist extension 5/5 :: LEFT wrist extension 5/5 RIGHT hand administrative assistant office manager 5/5 :: LEFT hand administrative assistant office manager 5/5 STRAIGHT LEG RAISE:: LLE is negative at 120 degrees. RLE is negative at 120 degrees. NEUROLOGIC SENSATION:: hypesthesia is not noted in lower extremity dermatomes. SIGNS OF NEUROVASCULAR COMPRESSION Clonus: none found bilateral with passive ROM at ankle joint Spasticity:: none Atrophy:: not present in UE or LE musculature Fasciculation:: not present in UE or LE musculature PSYCHIATRIC:: ORIENTATION:: awake and alert. INSIGHT:: good awareness of illness. AFFECT:: pleasant. Radiology Images Viewed By Me:: May 2016 CT lumbar spine is normal. I have reviewed and agree with information documented in the scribed documentation, ROS, patient medications, allergies, medical history, surgical history, social history, and family history. Results - Labs 06/04/16 05:47 06/04/16 05:47 Abnormal lab results Potassium 3.4 mEq/L (3.5-4.5) L 06/04/16 05:47 Glucose 109 mg/dL (70-99) H 06/04/16 05:47 AST 36 Units/L (5-34) H 06/01/16 10:50 Alkaline Phosphatase 136 Units/L (38-126) H 06/01/16 10:50 B-Natriuretic Peptide 181 pg/mL (0-100) H 06/01/16 10:50 Ur Specific [place] >= 1.030 (1.010-1.025) H 06/02/16 05:06 Urine Protein 100 mg/dL (Neg-Trace) H 06/02/16 05:06 Urine Blood Trace-lysed (Negative) H 06/02/16 05:06 Urine Microscopic RBC 3-5 per hpf (0-3) H 06/02/16 05:06 Urine Microscopic WBC 5-15 per hpf (0-3) H 06/02/16 05:06 Ur Squamous Epith Cells Many per lpf (None-Few) H 06/02/16 05:06 Urine Mucus Many (Few) H 06/01/16 14:31 Ur Culture Indicated? YES (NO) A 06/02/16 05:06 Urine Opiates Screen Positive ng/mL (Nztkop=401) H 06/03/16 04:01 Diabetes panel 06/04/16 Range/Units 05:47 Sodium 137 (136-145) mEq/L Potassium 3.4 L (3.5-4.5) mEq/L Chloride 98 (98-109) mEq/L Carbon Dioxide 29 (19-29) mEq/L BUN 8 (7-20) mg/dL Creatinine 0.69 (0.57-1.11) mg/dL Glucose 109 H (70-99) mg/dL Calcium 9.0 (8.6-10.8) mg/dL Calcium panel 06/04/16 Range/Units 05:47 Calcium 9.0 (8.6-10.8) mg/dL Pituitary panel 06/04/16 Range/Units 05:47 Sodium 137 (136-145) mEq/L Potassium 3.4 L (3.5-4.5) mEq/L Chloride 98 (98-109) mEq/L Carbon Dioxide 29 (19-29) mEq/L BUN 8 (7-20) mg/dL Creatinine 0.69 (0.57-1.11) mg/dL Glucose 109 H (70-99) mg/dL Calcium 9.0 (8.6-10.8) mg/dL Adrenal panel 06/04/16 Range/Units 05:47 Sodium 137 (136-145) mEq/L Potassium 3.4 L (3.5-4.5) mEq/L Chloride 98 (98-109) mEq/L Carbon Dioxide 29 (19-29) mEq/L BUN 8 (7-20) mg/dL Creatinine 0.69 (0.57-1.11) mg/dL Glucose 109 H (70-99) mg/dL Calcium 9.0 (8.6-10.8) mg/dL All other labs normal. Consult Discharge Plan - Plan Referrals: Jimbo Fonseca [Primary Care Provider] - 06/15/16 2:20 pm
[2016-06-04] MEDS: Furosemide 20 MG TABLET PO SCH (09:20)
[2016-06-04] MEDS: Diltiazem CD (24hr) 240 MG CAPSULE PO SCH (09:20)
[2016-06-04] MEDS: Gabapentin 100 MG CAPSULE PO SCH (09:20)
[2016-06-04] MEDS: *HR* Heparin 5,000 UNIT/ML VIAL SQ SCH (09:20)
--- NOTE | 2016-06-04 12:02 | Physician Discharge Referral ---
ExtendedCare Referral Info Transfer To: [facility] in-patient rehab Provider in Charge after Transfer: PCP Institutional Level of Care: Skilled - Diagnosis (1) Elevated troponin Priority: Primary Status: Resolved (2) Hypokalemia Priority: Primary Status: Resolved (3) Leukocytosis Priority: Primary Status: Resolved (4) Opiate withdrawal Priority: Primary Status: Acute (5) Weakness Priority: Primary Status: Acute (6) Hypertension Priority: Secondary Status: Chronic Prognosis: Fair Aware of Diagnosis: Patient, Family Aware of Prognosis: Patient, Family - Transfer Medications Home Medications: Citalopram Hydrobromide [Celexa] 20 mg PO DAILY 06/01/16 [History] Diltiazem CD (24hr) [Cardizem CD] 240 mg PO DAILY 06/01/16 [History] Furosemide [Lasix] 20 mg PO DAILY 06/01/16 [History] Meclizine HCl [Verticalm] 25 mg PO BID PRN 06/01/16 [History] Omeprazole [PriLOSEC] 20 mg PO DAILY 06/01/16 [History] Potassium Chloride [Klor-Con Sprinkle] 10 meq PO BID 06/01/16 [History] Simvastatin [Zocor] 20 mg PO HS 06/01/16 [History] Zolpidem [Ambien] 5 mg PO HS 06/01/16 [History] Gabapentin [Neurontin] 100 mg PO TID #90 capsule 06/04/16 [Rx] OxyCODONE Immed Rel [Roxicodone 5 MG] 10 mg PO Q6HR PRN #50 tablet 06/04/16 [Rx] Allergies/Adverse Reactions: Allergies morphine Allergy (Verified 06/01/16 12:10) Nausea - Respiratory Orders None Smoking Cessation: Smoking cessation has been advised. For more information, call the [place] Tobacco Quit Line at 2-828-QPBJ-NOW. - Ancillary Orders May consult with Dentist, Insights Strategist, Sheet Cutter PRN - Advance Directives Code Status: Full Code - Mobility Orders Ambulate - Rehabiliation Orders Rehab Orders: Evaluation for Physical Therapy, Evaluation for Occupational Therapy - Diet Orders Cardiac CERTIFICATION: I certify that the transfer of the above named patient to an Extended Care Facility is necessary for the continuing treatment of the diagnosis listed. The above information is true and accurate reflection of patient's current condition. Confidential - Redisclosure prohibited without a patient's written consent.
--- NOTE | 2016-06-04 12:06 | Discharge Summary ---
Date of Encounter: 06/04/16 Time of Encounter: 09:45 - Discharge Diagnosis (1) Elevated troponin Priority: Primary Status: Resolved (2) Hypokalemia Priority: Primary Status: Resolved (3) Leukocytosis Priority: Primary Status: Resolved Qualifiers: Leukocytosis type: bandemia Qualified Code(s): D72.825 - Bandemia (4) Opiate withdrawal Priority: Primary Status: Acute (5) Weakness Priority: Primary Status: Acute (6) Hypertension Priority: Secondary Status: Chronic Qualifiers: Hypertension type: essential hypertension Qualified Code(s): I10 - Essential (primary) hypertension - Discharge Medications Home Medications: Citalopram Hydrobromide [Celexa] 20 mg PO DAILY 06/01/16 [History] Diltiazem CD (24hr) [Cardizem CD] 240 mg PO DAILY 06/01/16 [History] Furosemide [Lasix] 20 mg PO DAILY 06/01/16 [History] Meclizine HCl [Verticalm] 25 mg PO BID PRN 06/01/16 [History] Omeprazole [PriLOSEC] 20 mg PO DAILY 06/01/16 [History] Potassium Chloride [Klor-Con Sprinkle] 10 meq PO BID 06/01/16 [History] Simvastatin [Zocor] 20 mg PO HS 06/01/16 [History] Zolpidem [Ambien] 5 mg PO HS 06/01/16 [History] Allergies/Adverse Reactions: Allergies morphine Allergy (Verified 06/01/16 12:10) Nausea Date of admission: 06/01/16 15:30 Primary care physician: Jimbo Fonseca Consults: 06/01/16 17:49 Consult to Vba Developer [CONS] Routine Reason for SW Consult: opioid withdrawal, possible rehab?? 06/01/16 20:07 Consult to Occupational Therapy [CONS] Routine Comment: Evaluate, develop and implement POC Consult to Physical Therapy [CONS] Routine Comment: Evaluate, develop and implement POC 06/02/16 14:03 Consult to Pain Management [CONS] Routine Consulting Provider: Pain Kate Ortez Reason for Consult: pt currently in pain mgmt program at other facility, need input for pain meds Call Completed: No Discharging clinician: Ismael Weeks Anticipated date of discharge: 06/04/16 - Patient Status Disposition: Transfer SNF Condition: Fair Functional capacity at discharge: independent ambulation Overall status at discharge: patient is back to baseline - Discharge Instructions Follow Up With: Jimbo Fonseca [Primary Care Provider] - 06/15/16 2:20 pm - Diet and Activity Activity: as per physical therapy Diet: advance to your usual diet Interval History: See below Hospital course: Ms. Cooper is a 76 year old female with Chronic low back pain, Fibromyalgia, opiate dependence, GERD, HTN,HLD admitted for opiate withdrawal , dehydration and hypokalemia. Work up on admission also revealed leukocytosis, mildly elevated troponin She was rehydrated and restarted on half the dose of her home doses of oxycodone and gabapentin was started Her symptoms promptly improved after IVF and several potassium replacements IV and PO There was some conflict between her and family about detox, hence pain management was consulted Plan is to slowly taper off her opiates and maximize use of non-opiate options for pain control She is being transferred to [facility] for short term physical therapy Chronic medical conditions remained stable, continue home meds Immunization up to date - Time Spent with Patient Total time spent providing and/or coordinating discharge services: Less than 30 minutes - Constitutional Vitals: Temp Pulse Resp BP Pulse Ox 98.1 F 71 18 122/73 93 L 06/04/16 08:39 06/04/16 08:39 06/04/16 08:39 06/04/16 08:39 06/04/16 08:39 General appearance: Present: A&O X 3, pleasant, no acute distress - Head Head exam: Present: atraumatic, normocephalic - Eye Eye exam: Present: PERRL, conjuntiva pink, sclera anicteric Pupils: Present: PERRL - Neck Neck exam general surgery: Present: supple, trachea midline. Absent: lymphadenopathy - Respiratory Respiratory exam: Present: CTAB. Absent: accessory muscle use, rales, rhonchi, wheezes - Cardiovascular Cardiovascular exam: Present: RRR, +S1, +S2. Absent: diastolic murmur, gallop, rubs, systolic murmur - GI/Abdominal GI/Abdominal exam: Present: normal bowel sounds, soft, no peritoneal signs. Absent: distended, tenderness - Extremities Exam Extremities exam: Present: warm, radial pulses palpable and symetrical. Absent : calf tenderness, cyanotic, pedal edema - Neurological Exam Neurological exam: Present: CN II-XII intact, oriented X3, no focal deficits. Absent: pronater drift, facial droop, speech deficit - Skin Skin exam: Present: dry, intact
[2016-06-04 12:08] VITALS: BP 119/81
== END 2016-06-04 13:29 ==
LOC: EMEROO 09:47 → 2ANU 09:47
PROVIDERS: ADMIT Internal Medicine; ATTEND Internal Medicine

== ENCOUNTER 2019-01-11 13:02 | Observation (INO) ==
[2019-01-11] MEDS ORDERED: 0.9 % Sodium Chloride 1,000 ML IVC ONE (13:30)
[2019-01-11] MEDS ORDERED: *HR* FentaNYL (PF) 100 MCG/2 ML VIAL IVP ONE (13:37)
--- NOTE | 2019-01-11 13:38 | Emergency Department Note ---
Disposition Clinical Impression: Syncope Qualifiers: Syncope type: unspecified Qualified Code(s): R55 - Syncope and collapse Disposition: Admitted As Inpatient Condition: Good Referrals: Jimbo Fonseca [Primary Care Provider] - Forms: ED Satisfaction Letter Time of Disposition: 21:13 Fall HPI - General Chief Complaint: ED Fall Stated Complaint: fall/leg pain Time Seen by Provider: 01/11/19 13:13 Source: patient Limitations: no limitations Nursing Notes Reviewed: Yes Vital Signs Reviewed: Yes - History of Present Illness HPI Narrative: 78 yo woman fell while getting up from her walker in the living room 01/11/19. She remembers feeling "funny" before she fell, but could not be more specific. She endorses neck, back, and leg pain. She also noticed that she was shaky prior to the fall. She does not know whether she lost consciousness. She had surgical repair of a right hip fracture in August. She is no longer on anticoagulation. She has also had diarrhea for about 1 week, but has not been on antibiotics within the last month. She denies fever, nausea, vomiting, AMS, CP, SOB, new weakness, numbness or other symptoms. - Related Data Home Medications Medication Instructions Recorded Confirmed Citalopram Hydrobromide [Celexa] 20 mg PO DAILY 06/01/16 01/11/19 Furosemide [Lasix] 40 mg PO DAILY 06/01/16 01/11/19 Meclizine HCl [Verticalm] 25 mg PO BID 06/01/16 01/11/19 Omeprazole [PriLOSEC] 20 mg PO DAILY 06/01/16 01/11/19 Simvastatin [Zocor] 10 mg PO HS 06/01/16 01/11/19 Zolpidem [Ambien] 5 mg PO HS 06/01/16 01/11/19 Cholecalciferol (Vitamin D3) 5,000 unit PO DAILY 09/05/18 01/11/19 [Vitamin D3] Cyanocobalamin (Vitamin B-12) 1,000 mcg PO 2XW 09/05/18 01/11/19 [Vitamin B12] Gabapentin [Neurontin] 300 mg PO TID 09/05/18 01/11/19 Potassium Chloride [K-Tab ER] 10 meq PO BID 09/05/18 01/11/19 Acetaminophen [Tylenol] 650 mg PO Q4HR PRN 01/11/19 01/11/19 Diltiazem HCl [Cardizem LA] 360 mg PO DAILY 01/11/19 01/11/19 HYDROcodone/Acet 5/325 mg [[place] 1 tab PO Q4H PRN 01/11/19 01/11/19 5-325 mg] Loperamide HCl [Imodium A-D] 2 mg PO PRN PRN MDD 16 mg 01/11/19 01/11/19 Polyethylene Glycol 3350 [MiraLAX] 17 gm PO DAILY 01/11/19 01/11/19 Allergies Allergy/AdvReac Type Severity Reaction Status Date / Time morphine Allergy "MAKES ME Verified 09/05/18 13:46 SICK/NUTS" All systems ED: reviewed and negative except as stated. Gastrointestinal: Reports: abdominal pain, diarrhea Musculoskeletal: Reports: back pain, neck pain, joint swelling Fall PMH - Past Medical History Medical history: Reports: CVA, fibromyalgia, GERD, hyperlipidemia, hypertension Surgical history: Reports: herniorrhaphy, hip replacement, hysterectomy, knee replacement Psychiatric history: Reports: no psych history - Social History Smoking Status: Never smoker Alcohol use: Reports: none Drug use: Reports: none Physical Exam PE Gen: AOx3, uncomfortable HEENT: No lymphadenopathy. Pupils equal and reactive. Cardio: Regular rate and rhythm, no murmur, unilateral peripheral edema (RLE), good perfusion to all extremities, no cyanosis Resp: Equal breath sounds bilaterally, no wheeze, no cough GI: Abdomen soft, nondistended, nontender to palpation. No ecchymoses, no rash. : No suprapubic tenderness or distention MSK: No trauma obvious on visual exam. Patient in C-collar pending clearance. Neuro: CNI-XII intact, strength and sensation WNL Psych: Appropriate affect - General Limitations: no limitations General appearance: alert, in no apparent distress Course Course Narrative: VS stable. Patient states she is dehydrated and not eating or drinking well; given 1L NS bolus IV. Fentanyl 50mcg given for pain. CT head, neck, back ordered. CXR and XR pelvis, DVT doppler, EKG, troponin, CMP, CBC, HFT, lipase ordered to evaluate possible cause of fall. Vital Signs Temperature 98 F 01/11/19 13:07 Pulse Rate 82 01/11/19 13:07 Respiratory Rate 18 01/11/19 13:07 Blood Pressure 152/74 01/11/19 13:07 O2 Sat by Pulse Oximetry 95 01/11/19 13:07 Temperature 98 F 01/11/19 13:07 Pulse Rate 82 01/11/19 17:05 Respiratory Rate 16 01/11/19 17:05 Blood Pressure 146/70 01/11/19 17:05 O2 Sat by Pulse Oximetry 94 01/11/19 17:05 Oxygen Delivery Oxygen Delivery Room Air Fall - MDM Narrative Medical decision making narrative: VS stable. Imaging negative for acute trauma 2/ fall. Doppler consistent with chronic right DVT; CT-A ordered to r/o PE. Spoke with hospitalist regarding admission; will accept following CT-A results. Given IV medications for pain relief. - Medical Records Medical records reviewed: Yes I reviewed the patient's medical records. - Lab Data Lab results reviewed: Yes I reviewed the patient's lab results. Result diagrams: 01/11/19 13:49 01/11/19 13:49 Lab Results 01/11/19 01/11/19 01/11/19 Range/Units 13:49 13:49 13:49 WBC 9.5 (4.3-11.1) K/mcL RBC 4.53 (3.82-4.97) M/mcL Hgb 12.8 (11.5-15.4) g/dL Hct 40.4 (35.3-44.9) % MCV 89.2 (83.0-100.0) fL MCH 28.3 (28.0-33.3) pg MCHC 31.7 (31.6-35.5) g/dL RDW 15.8 H (11.5-14.5) % Plt Count 322 (140-400) K/mcL MPV 9.9 (9.4-12.4) fL Immature Gran % 0.4 (0-4) % Seg Neutrophils % 81.9 % Lymphocytes % 11.2 % Monocytes % 5.2 % Eosinophils % 1.0 % Basophils % 0.3 % Neutrophils # 7.8 (1.6-8.9) K/mcL Lymphocytes # 1.1 (0.6-4.6) K/mcL Monocytes # 0.5 (0.0-1.3) K/mcL Eosinophils # 0.1 (0.0-0.6) K/mcL Basophils # 0.0 (0.0-0.2) K/mcL Sodium 137 (136-145) mEq/L Potassium 2.8 L (3.5-5.1) mEq/L Chloride 95 L (98-107) mEq/L Carbon Dioxide 27 (23-29) mEq/L BUN 16 (8-23) mg/dL Creatinine 1.16 (0.60-1.20) mg/dL Est GFR ( Amer) 55 L (> 60) Est GFR (Non-Af Amer) 45 L (> 60) BUN/Creatinine Ratio 14 (6-26) Glucose 111 H (70-105) mg/dL Calculated Osmolality 286 (280-300) Calcium 9.4 (8.6-10.3) mg/dL Magnesium Cancelled Total Bilirubin 0.6 0.6 (0.3-1.0) mg/dL Direct Bilirubin 0.2 (0.0-0.2) mg/dL Indirect Bilirubin 0.4 (0.0-1.2) mg/dL AST 18 16 (13-39) Units/L ALT 10 10 (7-52) Units/L Alkaline Phosphatase 121 H 130 H (34-104) Units/L Troponin I < 0.03 (< 0.04) ng/mL Serum Total Protein 7.0 7.0 (6.4-8.9) g/dL Albumin 4.2 4.2 (3.5-5.7) g/dL Globulin 2.8 2.8 (2.4-3.5) g/dL Albumin/Globulin Ratio 1.5 1.5 (1.1-2.2) Lipase Cancelled Urine Color (Yellow) Urine Clarity (Clear) Urine pH (5.0-8.0) pH Units Ur Specific [place] (1.010-1.025) Urine Protein (Neg-Trace) mg/dL Urine Glucose (UA) (Normal) mg/dL Urine Ketones (Negative) mg/dL Urine Blood (Negative) Urine Nitrite (Negative) Urine Bilirubin (Negative) Urine Urobilinogen (Normal) mg/dL Ur Leukocyte Esterase (Negative) Urine Microscopic RBC (0-3) per hpf Urine Microscopic WBC (0-3) per hpf Ur Squamous Epith Cells (None-Few) per lpf Urine Bacteria (None-Few) per hpf Hyaline Casts (None-Few) per lpf Ur Culture Indicated? (NO) 01/11/19 01/11/19 Range/Units 13:49 16:49 WBC (4.3-11.1) K/mcL RBC (3.82-4.97) M/mcL Hgb (11.5-15.4) g/dL Hct (35.3-44.9) % MCV (83.0-100.0) fL MCH (28.0-33.3) pg MCHC (31.6-35.5) g/dL RDW (11.5-14.5) % Plt Count (140-400) K/mcL MPV (9.4-12.4) fL Immature Gran % (0-4) % Seg Neutrophils % % Lymphocytes % % Monocytes % % Eosinophils % % Basophils % % Neutrophils # (1.6-8.9) K/mcL Lymphocytes # (0.6-4.6) K/mcL Monocytes # (0.0-1.3) K/mcL Eosinophils # (0.0-0.6) K/mcL Basophils # (0.0-0.2) K/mcL Sodium (136-145) mEq/L Potassium (3.5-5.1) mEq/L Chloride (98-107) mEq/L Carbon Dioxide (23-29) mEq/L BUN (8-23) mg/dL Creatinine (0.60-1.20) mg/dL Est GFR ( Amer) (> 60) Est GFR (Non-Af Amer) (> 60) BUN/Creatinine Ratio (6-26) Glucose (70-105) mg/dL Calculated Osmolality (280-300) Calcium (8.6-10.3) mg/dL Magnesium 2.2 Total Bilirubin (0.3-1.0) mg/dL Direct Bilirubin (0.0-0.2) mg/dL Indirect Bilirubin (0.0-1.2) mg/dL AST (13-39) Units/L ALT (7-52) Units/L Alkaline Phosphatase (34-104) Units/L Troponin I (< 0.04) ng/mL Serum Total Protein (6.4-8.9) g/dL Albumin (3.5-5.7) g/dL Globulin (2.4-3.5) g/dL Albumin/Globulin Ratio (1.1-2.2) Lipase Urine Color Yellow (Yellow) Urine Clarity Cloudy A (Clear) Urine pH 5.5 (5.0-8.0) pH Units Ur Specific [place] 1.019 (1.010-1.025) Urine Protein Trace (Neg-Trace) mg/dL Urine Glucose (UA) Normal (Normal) mg/dL Urine Ketones Negative (Negative) mg/dL Urine Blood Negative (Negative) Urine Nitrite Negative (Negative) Urine Bilirubin Small H (Negative) Urine Urobilinogen Normal (Normal) mg/dL Ur Leukocyte Esterase Small H (Negative) Urine Microscopic RBC 0-3 (0-3) per hpf Urine Microscopic WBC 5-15 H (0-3) per hpf Ur Squamous Epith Cells Many H (None-Few) per lpf Urine Bacteria Moderate H (None-Few) per hpf Hyaline Casts None Seen (None-Few) per lpf Ur Culture Indicated? YES A (NO) - Radiology Data Radiology results reviewed: Yes I reviewed the patient's radiology results. Cervical Spine CT 01/11/19 13:17 IMPRESSION: No acute traumatic injury of the cervical spine. Chronic stable changes throughout the cervical spine with severe multilevel disc and facet degenerative changes and reversal of the normal cervical lordosis. Remote fusion of the C5 through C7 vertebrae. D/ / 01/11/2019 15:03:14 Imer Gamez MD / [employer] Interpreting Provider: Imer Gamez MD Chest X-Ray 01/11/19 13:17 IMPRESSION: No active cardiopulmonary disease D/ / Bear Pelletier MD / Bear Pelletier MD Interpreting Provider: Bear Pelletier MD Head CT 01/11/19 13:17 IMPRESSION: 1. No acute findings in the head. 2. Chronic changes as above. D/ / Sekou Damico MD / Sekou Damico MD Interpreting Provider: Sekou Damico MD Lumbar Spine CT 01/11/19 13:29 IMPRESSION: No evidence of acute traumatic injury of the thoracic or lumbar spine. D/ / 01/11/2019 15:03:38 Sheldon Clayton MD / jarvis Interpreting Provider: Sheldon Clayton MD Thoracic Spine CT 01/11/19 13:29 IMPRESSION: No evidence of acute traumatic injury of the thoracic or lumbar spine. D/ / 01/11/2019 15:03:38 Sheldon Clayton MD / jarvis Interpreting Provider: Sheldon Clayton MD Pelvis X-Ray 01/11/19 13:47 IMPRESSION: Stable visualized left hip arthroplasty and right internal fixation hardware. No acute osseous abnormality. Given the degree of osteopenia, nondisplaced fractures may be radiographically occult. If pain or concern for fracture persists, consider MR or CT imaging. D/ / 01/11/2019 14:20:03 Medina Clayton MD / jarvis Interpreting Provider: Medina Clayton MD Chest CTA 01/11/19 15:22 IMPRESSION: No evidence pulmonary embolism. Bilateral lower lobe, mostly dependent, airspace disease, greater on the right including posterior right lower lobe consolidation, atelectasis and/or pneumonia. D/ / Lexy Us Cha, MD / Lexy Us Cha, MD Interpreting Provider: Lexy Us Cha, MD - EKG Data EKG attestation: Yes I reviewed and interpreted this EKG. EKG shows normal: sinus rhythm Rate: normal Rhythm: NSR When compared to previous EKG there are: no significant changes (09/05/18) Interpretation: no acute changes
[2019-01-11 14:10] LABS: Basophils % 0.3 %; Eosinophils # 0.1 K/mcL (0.0-0.6); Hematocrit 40.4 % (35.3-44.9); Hemoglobin 12.8 g/dL (11.5-15.4); Immature Granulocytes % 0.4 % (0-4); Lymphocytes # 1.1 K/mcL (0.6-4.6); Lymphocytes % 11.2 %; Mean Corpuscular HGB Conc 31.7 g/dL (31.6-35.5); Mean Corpuscular Hemoglobin 28.3 pg (28.0-33.3); Mean Corpuscular Volume 89.2 fL (83.0-100.0); Mean Platelet Volume 9.9 fL (9.4-12.4); Monocytes # 0.5 K/mcL (0.0-1.3); Monocytes % 5.2 %; Neutrophils # 7.8 K/mcL (1.6-8.9); Platelet Count 322 K/mcL (140-400); Red Blood Count 4.53 M/mcL (3.82-4.97); Red Cell Distribution Width 15.8 % (11.5-14.5); Segmented Neutrophils % 81.9 %; White Blood Count 9.5 K/mcL (4.3-11.1)
[2019-01-11 14:53] LABS: Troponin I < 0.03 ng/mL (< 0.04)
[2019-01-11 15:05] LABS: Alanine Aminotransferase 10 Units/L (7-52); Albumin 4.2 g/dL (3.5-5.7); Alkaline Phosphatase 121 Units/L (34-104); BUN/Creatinine Ratio 14 (6-26); Blood Urea Nitrogen 16 mg/dL (8-23); Calcium 9.4 mg/dL (8.6-10.3); Carbon Dioxide 27 mEq/L (23-29); Chloride 95 mEq/L (98-107); Glucose 111 mg/dL (70-105); Osmolality,Calculated 286 (280-300); Potassium 2.8 mEq/L (3.5-5.1); Sodium 137 mEq/L (136-145); eGFR For African Americans 55 (> 60); eGFR For Non-African Americans 45 (> 60)
[2019-01-11 15:21] LABS: Albumin/Globulin Ratio 1.5 (1.1-2.2); Aspartate Amino Transferase 18 Units/L (13-39); Bilirubin,Total 0.6 mg/dL (0.3-1.0); Globulin 2.8 g/dL (2.4-3.5)
[2019-01-11] MEDS ORDERED: Isovue-370 500 ML BOTTLE IVP ONE (15:22)
[2019-01-11] MEDS ORDERED: Potassium Chloride Elixir 20 MEQ/15 ML UDC PO ONE ×2 (15:25→23:26)
[2019-01-11 15:43] LABS: Albumin 4.2 g/dL (3.5-5.7); Albumin/Globulin Ratio 1.5 (1.1-2.2); Bilirubin,Direct 0.2 mg/dL (0.0-0.2); Bilirubin,Indirect 0.4 mg/dL (0.0-1.2); Bilirubin,Total 0.6 mg/dL (0.3-1.0); Globulin 2.8 g/dL (2.4-3.5)
--- NOTE | 2019-01-11 16:26 | Electrocardiograph Report ---
[place] [id number] Test Date: 2019-01-11 Pat Name: Socrates Cooper Department: [id number] Room: Gender: F [employer]ishing [employer] Operator: : [id number] Requested By: Kaila Oakley Order Number: [id number] Reading MD: Asad Wilkerson Measurements Intervals [place] Rate: 79 P: 41 MN: 197 QRS: -16 QRSD: 117 T: 35 QT: 414 QTc: 475 Interpretive Statements Sinus rhythm Atrial premature complex Nonspecific intraventricular conduction delay Borderline T abnormalities, anterior leads Electronically Signed On 01-11-2019 16:24:29 EDT by Asad Wilkerson
[2019-01-11] MEDS: Magnesium Oxide 400 MG TABLET PO SCH (16:34)
[2019-01-11] MEDS ORDERED: *HR* HYDROmorphone (PF) 1 MG/ML SYRINGE IVP ONE (16:37)
--- NOTE | 2019-01-11 16:40 | Emergency Department Note ---
Disposition Clinical Impression: Syncope Qualifiers: Syncope type: unspecified Qualified Code(s): R55 - Syncope and collapse Disposition: Admitted As Inpatient Condition: Good Time of Disposition: 21:13 General Adult HPI - General Chief complaint: ED Fall Stated complaint: fall/leg pain Time Seen by Provider: 01/11/19 13:13 Source: patient Limitations: no limitations - History of Present Illness Pain Scale: 5 - Related Data Home Medications Medication Instructions Recorded Confirmed Citalopram Hydrobromide [Celexa] 20 mg PO DAILY 06/01/16 01/11/19 Meclizine HCl [Verticalm] 25 mg PO BID 06/01/16 01/11/19 Omeprazole [PriLOSEC] 20 mg PO DAILY 06/01/16 01/11/19 Zolpidem [Ambien] 5 mg PO HS 06/01/16 01/11/19 Cyanocobalamin (Vitamin B-12) 1,000 mcg PO MOFR 09/05/18 01/11/19 [Vitamin B12] Gabapentin [Neurontin] 300 mg PO TID 09/05/18 01/11/19 Potassium Chloride [K-Tab ER] 10 meq PO BID 09/05/18 01/11/19 Acetaminophen [Tylenol] 650 mg PO Q4HR PRN MDD 3000MG 01/11/19 01/11/19 Bisacodyl [Gentle Laxative] 10 mg RC DAILY PRN 01/11/19 01/11/19 Cholecalciferol (Vitamin D3) 5,000 units PO DAILY 01/11/19 01/11/19 [Dialyvite Vitamin D] D Lo Starch [Resource Thickenup] 1 appl TP DAILY 01/11/19 01/11/19 Diltiazem HCl [Cardizem LA] 360 mg PO DAILY 01/11/19 01/11/19 Furosemide [Lasix] 40 mg PO DAILY 01/11/19 01/11/19 GuaiFENesin/Dextromethorphan 5 ml PO Q4H PRN 01/11/19 01/11/19 [Robafen Dm Cough Syrup] HYDROcodone/Acet 5/325 mg [[place] 1 tab PO Q4H PRN 01/11/19 01/11/19 5-325 mg] Loperamide HCl [Imodium A-D] 2 mg PO PRN PRN MDD 16 mg 01/11/19 01/11/19 MOM Conc [MILK OF MAGNESIA conc] 30 ml PO DAILY PRN 01/11/19 01/11/19 Mag Hydrox/Al Hydrox/Simeth 30 ml PO QID PRN 01/11/19 01/11/19 [Antacid Suspension] Menthol [Biofreeze] 1 appl TP Q8H PRN 01/11/19 01/11/19 Na Phos,M-B/Na Phos,Di-Ba [Fleet 118 ml RC DAILY PRN 01/11/19 01/11/19 Enema Extra] Polyethylene Glycol 3350 [MiraLAX] 17 gm PO DAILY 01/11/19 01/11/19 Simvastatin [Zocor] 10 mg PO HS 01/11/19 01/11/19 Allergies Allergy/AdvReac Type Severity Reaction Status Date / Time morphine Allergy "MAKES ME Verified 01/11/19 23:35 SICK/NUTS" Gastrointestinal: Reports: abdominal pain, diarrhea Musculoskeletal: Reports: back pain, neck pain, joint swelling Past Medical History - Past Medical History Medical history: Reports: CVA, fibromyalgia, GERD, hyperlipidemia, hypertension Surgical history: Reports: herniorrhaphy, hip replacement, hysterectomy, knee replacement Psychiatric history: Reports: no psych history - Social History Smoking Status: Never smoker Alcohol use: Reports: none Drug use: Reports: none Physical Exam - General Limitations: no limitations General appearance: alert, in no apparent distress Course Vital Signs Temperature 98 F 01/11/19 13:07 Pulse Rate 82 01/11/19 13:07 Respiratory Rate 18 01/11/19 13:07 Blood Pressure 152/74 01/11/19 13:07 O2 Sat by Pulse Oximetry 95 01/11/19 13:07 Temperature 98.5 F 01/12/19 18:51 Pulse Rate 87 01/12/19 18:51 Respiratory Rate 16 01/12/19 18:51 Blood Pressure 158/65 01/12/19 18:51 O2 Sat by Pulse Oximetry 97 01/12/19 18:51 Oxygen Delivery Oxygen Delivery Room Air Medical Decision Making - Lab Data Result diagrams: 01/12/19 08:46 01/12/19 08:46 Lab Results 01/11/19 01/11/19 01/11/19 Range/Units 13:49 13:49 13:49 WBC 9.5 (4.3-11.1) K/mcL RBC 4.53 (3.82-4.97) M/mcL Hgb 12.8 (11.5-15.4) g/dL Hct 40.4 (35.3-44.9) % MCV 89.2 (83.0-100.0) fL MCH 28.3 (28.0-33.3) pg MCHC 31.7 (31.6-35.5) g/dL RDW 15.8 H (11.5-14.5) % Plt Count 322 (140-400) K/mcL MPV 9.9 (9.4-12.4) fL Immature Gran % 0.4 (0-4) % Seg Neutrophils % 81.9 % Lymphocytes % 11.2 % Monocytes % 5.2 % Eosinophils % 1.0 % Basophils % 0.3 % Neutrophils # 7.8 (1.6-8.9) K/mcL Lymphocytes # 1.1 (0.6-4.6) K/mcL Monocytes # 0.5 (0.0-1.3) K/mcL Eosinophils # 0.1 (0.0-0.6) K/mcL Basophils # 0.0 (0.0-0.2) K/mcL Sodium 137 (136-145) mEq/L Potassium 2.8 L (3.5-5.1) mEq/L Chloride 95 L (98-107) mEq/L Carbon Dioxide 27 (23-29) mEq/L BUN 16 (8-23) mg/dL Creatinine 1.16 (0.60-1.20) mg/dL Est GFR ( Amer) 55 L (> 60) Est GFR (Non-Af Amer) 45 L (> 60) BUN/Creatinine Ratio 14 (6-26) Glucose 111 H (70-105) mg/dL Calculated Osmolality 286 (280-300) Calcium 9.4 (8.6-10.3) mg/dL Magnesium Cancelled Total Bilirubin 0.6 0.6 (0.3-1.0) mg/dL Direct Bilirubin 0.2 (0.0-0.2) mg/dL Indirect Bilirubin 0.4 (0.0-1.2) mg/dL AST 18 16 (13-39) Units/L ALT 10 10 (7-52) Units/L Alkaline Phosphatase 121 H 130 H (34-104) Units/L Troponin I < 0.03 (< 0.04) ng/mL Serum Total Protein 7.0 7.0 (6.4-8.9) g/dL Albumin 4.2 4.2 (3.5-5.7) g/dL Globulin 2.8 2.8 (2.4-3.5) g/dL Albumin/Globulin Ratio 1.5 1.5 (1.1-2.2) Lipase Cancelled Urine Color (Yellow) Urine Clarity (Clear) Urine pH (5.0-8.0) pH Units Ur Specific [place] (1.010-1.025) Urine Protein (Neg-Trace) mg/dL Urine Glucose (UA) (Normal) mg/dL Urine Ketones (Negative) mg/dL Urine Blood (Negative) Urine Nitrite (Negative) Urine Bilirubin (Negative) Urine Urobilinogen (Normal) mg/dL Ur Leukocyte Esterase (Negative) Urine Microscopic RBC (0-3) per hpf Urine Microscopic WBC (0-3) per hpf Ur Squamous Epith Cells (None-Few) per lpf Urine Bacteria (None-Few) per hpf Hyaline Casts (None-Few) per lpf Ur Culture Indicated? (NO) 01/11/19 01/11/19 Range/Units 13:49 16:49 WBC (4.3-11.1) K/mcL RBC (3.82-4.97) M/mcL Hgb (11.5-15.4) g/dL Hct (35.3-44.9) % MCV (83.0-100.0) fL MCH (28.0-33.3) pg MCHC (31.6-35.5) g/dL RDW (11.5-14.5) % Plt Count (140-400) K/mcL MPV (9.4-12.4) fL Immature Gran % (0-4) % Seg Neutrophils % % Lymphocytes % % Monocytes % % Eosinophils % % Basophils % % Neutrophils # (1.6-8.9) K/mcL Lymphocytes # (0.6-4.6) K/mcL Monocytes # (0.0-1.3) K/mcL Eosinophils # (0.0-0.6) K/mcL Basophils # (0.0-0.2) K/mcL Sodium (136-145) mEq/L Potassium (3.5-5.1) mEq/L Chloride (98-107) mEq/L Carbon Dioxide (23-29) mEq/L BUN (8-23) mg/dL Creatinine (0.60-1.20) mg/dL Est GFR ( Amer) (> 60) Est GFR (Non-Af Amer) (> 60) BUN/Creatinine Ratio (6-26) Glucose (70-105) mg/dL Calculated Osmolality (280-300) Calcium (8.6-10.3) mg/dL Magnesium 2.2 Total Bilirubin (0.3-1.0) mg/dL Direct Bilirubin (0.0-0.2) mg/dL Indirect Bilirubin (0.0-1.2) mg/dL AST (13-39) Units/L ALT (7-52) Units/L Alkaline Phosphatase (34-104) Units/L Troponin I (< 0.04) ng/mL Serum Total Protein (6.4-8.9) g/dL Albumin (3.5-5.7) g/dL Globulin (2.4-3.5) g/dL Albumin/Globulin Ratio (1.1-2.2) Lipase 9 L Urine Color Yellow (Yellow) Urine Clarity Cloudy A (Clear) Urine pH 5.5 (5.0-8.0) pH Units Ur Specific [place] 1.019 (1.010-1.025) Urine Protein Trace (Neg-Trace) mg/dL Urine Glucose (UA) Normal (Normal) mg/dL Urine Ketones Negative (Negative) mg/dL Urine Blood Negative (Negative) Urine Nitrite Negative (Negative) Urine Bilirubin Small H (Negative) Urine Urobilinogen Normal (Normal) mg/dL Ur Leukocyte Esterase Small H (Negative) Urine Microscopic RBC 0-3 (0-3) per hpf Urine Microscopic WBC 5-15 H (0-3) per hpf Ur Squamous Epith Cells Many H (None-Few) per lpf Urine Bacteria Moderate H (None-Few) per hpf Hyaline Casts None Seen (None-Few) per lpf Ur Culture Indicated? YES A (NO) Attestation Statement - Attestation Attestation: I examined this patient and my medical decision-making was reviewed with the Resident Physician. I agree with the documented findings, disposition and treatment plan as described except to the extent set forth below. Patient is 78-year-old female that presents to the emergency department with chief complaint of fall and generalized pain Exam patient awake alert no acute respiratory distress patient has tenderness to palpation in her right lower extremity. Medical decision management patient underwent imaging of showed no evidence of fracture but did show a old DVT in her lower extremity the patient will be evaluated from a pulmonary embolism standpoint she was found to be hypokalemic the patient will be admitted to the hospital once the results of resulted. I personally supervised and was present for the diego/critical portions of the following procedures completed by the resident:EKG.
[2019-01-11 17:11] LABS: Bilirubin,Urine Small (Negative); Blood,Urine Negative (Negative); Clarity,Urine Cloudy (Clear); Color,Urine Yellow (Yellow); Glucose,Urine (UA) Normal (Normal); Ketones,Urine Negative (Negative); Leukocyte Esterase,Urine Small (Negative); Nitrite,Urine Negative (Negative); PH,Urine 5.5 pH Units (5.0-8.0); Protein,Urine Trace mg/dL (Neg-Trace); Specific Gravity,Urine 1.019 (1.010-1.025); Urobilinogen,Urine Normal (Normal)
[2019-01-11 17:14] LABS: Bacteria,Urine Moderate per hpf (None-Few); Hyaline Casts,Urine None Seen per lpf (None-Few); Squamous Epithelial Cell,Urine Many per lpf (None-Few)
[2019-01-11 17:45] LABS: RBC,Urine 0-3 per hpf (0-3)
[2019-01-11] MEDS ORDERED: *HR* HYDROmorphone (PF) 1 MG/ML SYRINGE IM ONE (17:52)
[2019-01-11 18:26] LABS: Magnesium 2.2 mg/dL (1.6-2.6)
[2019-01-11] MEDS ORDERED: Ondansetron ODT 4 MG TAB.RAPDIS SL PRN (21:50)
[2019-01-11] MEDS ORDERED: Naloxone 0.4 MG/ML INJ IVP PRN (21:50)
--- NOTE | 2019-01-11 23:43 | Internal Med History&Physical ---
Date of Encounter: 01/12/19 Time of Encounter: 23:39 Internal Medicine - H&P: HPI Chief complaint: fall Admitted From: Home History of present illness: Ms. Cooper is a 78 year old elderly female with past medical history of hypertension, hyperlipidemia, chronic pain presented to the ED after a fall. [id number] encounter occurred on 10:50pm. Patient stated the she has been using Rollator prior to September 2018 and then underwent right hip surgery with being 2 months bedbound and working with rehabilitation was able to transition to a walker at home. Patient since then has been living at home independently with her daughter and granddaughter checking up on her frequently. Patient stated today while sitting in the living room watching TV stood up and noticed herself to be dizzy and shaky with feeling bad sensation lasting for seconds to minutes. Patient took 2 steps with a walker then fell behind landing on her back and her posterior head. Patient denied complete loss of consciousness and was on the floor for a few minutes due to feeling week to get up before her daughter was present(notified via alarm present with patient). Patient denied any palpitations, chest pain, headache, nausea, vomiting or diaphoresis prior to the incidence. Patient reported after the fall experienced back pain thoracic and low back and headache is posterior sharp radiating all over, 6/10 worsened with movement and palpation. Family history includes cardiac disease from mother and father sides. Surgical, and social history reviewed. Patient denies smoking drinking and drugs as a home and currently retired. Allergies to morphine causes the patient to be very sick. CODE STATUS was discussed and the patient proceeded in a CODE BLUE scenario to be a DNR/DNI. Intubation is ok if pulse present. Past Med Surg Social Fam HX - Past Medical History Medical history: CVA, fibromyalgia, GERD, hyperlipidemia, hypertension Psychiatric history: no psych history - Past Surgical History Surgical History: herniorrhaphy, hip replacement, hysterectomy, knee replacement Additional surgical history: hip right side - Social History Smoking Status: Never smoker Alcohol use: none Drug use: none - Family History Mother Living Status: Father Living Status: Internal Medicine - H&P: Meds Citalopram Hydrobromide [Celexa] 20 mg PO DAILY 06/01/16 [History] Meclizine HCl [Verticalm] 25 mg PO BID 06/01/16 [History] Omeprazole [PriLOSEC] 20 mg PO DAILY 06/01/16 [History] Zolpidem [Ambien] 5 mg PO HS 06/01/16 [History] Cyanocobalamin (Vitamin B-12) [Vitamin B12] 1,000 mcg PO MOFR 09/05/18 [History] Gabapentin [Neurontin] 300 mg PO TID 09/05/18 [History] Potassium Chloride [K-Tab ER] 10 meq PO BID 09/05/18 [History] Acetaminophen [Tylenol] 650 mg PO Q4HR PRN MDD 3000MG 01/11/19 [History] Bisacodyl [Gentle Laxative] 10 mg RC DAILY PRN 01/11/19 [History] Cholecalciferol (Vitamin D3) [Dialyvite Vitamin D] 5,000 units PO DAILY 01/11/19 [History] [place] Starch [Resource Thickenup] 1 appl TP DAILY 01/11/19 [History] Diltiazem HCl [Cardizem LA] 360 mg PO DAILY 01/11/19 [History] Furosemide [Lasix] 40 mg PO DAILY 01/11/19 [History] GuaiFENesin/Dextromethorphan [Robafen Dm Cough Syrup] 5 ml PO Q4H PRN 01/11/19 [History] HYDROcodone/Acet 5/325 mg [Leivasy 5-325 mg] 1 tab PO Q4H PRN 01/11/19 [History] Loperamide HCl [Imodium A-D] 2 mg PO PRN PRN MDD 16 mg 01/11/19 [History] MOM Conc [MILK OF MAGNESIA conc] 30 ml PO DAILY PRN 01/11/19 [History] Mag Hydrox/Al Hydrox/Simeth [Antacid Suspension] 30 ml PO QID PRN 01/11/19 [History] Menthol [Biofreeze] 1 appl TP Q8H PRN 01/11/19 [History] Na Phos,M-B/Na Phos,Di-Ba [Fleet Enema Extra] 118 ml RC DAILY PRN 01/11/19 [History] Polyethylene Glycol 3350 [MiraLAX] 17 gm PO DAILY 01/11/19 [History] Simvastatin [Zocor] 10 mg PO HS 01/11/19 [History] Allergy/AdvReac Type Severity Reaction Status Date / Time morphine Allergy "MAKES ME Verified 01/11/19 23:35 SICK/NUTS" All Systems PM: A 10-system review of systems was performed and is negative for pertinent findings except as documented above in the HPI. Review of systems: General: No unintentional weightloss, No fever, No night sweats. Head: + headahce, No injury. Ears: No discharge, No earache Eyes: No drainage, No eye pain Mouth and Throat: No new ulcers, No pain Nose and Sinus: No new congestion, No pain, Respiratory: No cough, No sputum production, No dyspnea Cardiovascular: No chest pain, No palpitations. Gastrointestinal: No nausea, No vomiting. No abdominal pain Genital Tract: No discharge, No pain Urinary Tract: No dysuria, No discharge. MSK: + new/worsening joint pain and + new/worsening muscle ache. Endocrine: No cold intolerance, No polyuria Psychological: No suicidal, No homocidal ideation. - Constitutional Vitals: Temp Pulse Resp BP Pulse Ox 98.6 F 92 16 146/72 92 01/11/19 22:25 01/11/19 22:25 01/11/19 22:25 01/11/19 22:25 01/11/19 22:25 Exam: General Appearance: Appearing as age, mal-nourished in no acute distress. Head: Atraumatic normocephalic Skin: Normal texture, dry delayed turgor, warm, dry mucous membranes. Eyes: Conjunctivae not pale with no erythema, drainage, or ulcers. Anicteric. Neck: No Lymphadenopathy in the anterior/posterior cervical chain. No thyromegaly, masses or ulcers. Trachea midline. Heart: tachycardic, grade 2 systolic murmurs. Capillary refill 3 seconds Lungs: No accessory muscle usage, lungs clear to auscultation bilaterally, no wheezes or crackles. Extremities: No pitting edema, clubbing, cyanosis, or ulcers. Abdomen: Non-distended, normoactive bowel sounds. non-tender to palpation, no hepatomegally. No guarding. Neuro: AOx3 with no new sensory loss or focal deficits. MSK: Strength 5/5 Upper extremity equal bilaterally. Strength 5/5 Lower extremity equal bilaterally Internal Med - H&P Results - Labs CBC & Chem 7: 01/12/19 00:59 01/11/19 13:49 Labs: Short CBC 01/11/19 Range/Units 13:49 WBC 9.5 (4.3-11.1) K/mcL Hgb 12.8 (11.5-15.4) g/dL Hct 40.4 (35.3-44.9) % Plt Count 322 (140-400) K/mcL Neutrophils # 7.8 (1.6-8.9) K/mcL BMP 01/11/19 13:49 Sodium 137 Potassium 2.8 L Chloride 95 L Carbon Dioxide 27 BUN 16 Creatinine 1.16 Glucose 111 H Calcium 9.4 Cardiac Enzymes 01/11/19 Range/Units 13:49 Troponin I < 0.03 (< 0.04) ng/mL Liver Function 01/11/19 01/11/19 Range/Units 13:49 13:49 Total Bilirubin 0.6 0.6 (0.3-1.0) mg/dL Direct Bilirubin 0.2 (0.0-0.2) mg/dL AST 18 16 (13-39) Units/L ALT 10 10 (7-52) Units/L Alkaline Phosphatase 121 H 130 H (34-104) Units/L Albumin 4.2 4.2 (3.5-5.7) g/dL Urine 01/11/19 Range/Units 16:49 Urine Color Yellow (Yellow) Urine Clarity Cloudy A (Clear) Urine pH 5.5 (5.0-8.0) pH Units Ur Specific [place] 1.019 (1.010-1.025) Urine Protein Trace (Neg-Trace) mg/dL Urine Glucose (UA) Normal (Normal) mg/dL - Impressions ITS Impressions Cervical Spine CT 01/11/19 13:17 IMPRESSION: No acute traumatic injury of the cervical spine. Chronic stable changes throughout the cervical spine with severe multilevel disc and facet degenerative changes and reversal of the normal cervical lordosis. Remote fusion of the C5 through C7 vertebrae. D/ / 01/11/2019 15:03:14 Imer Gamez MD / Radha Power Interpreting Provider: Imer Gamez MD Chest X-Ray 01/11/19 13:17 IMPRESSION: No active cardiopulmonary disease D/ / Bear Pelletier MD / Bear Pelletier MD Interpreting Provider: Bear Pelletier MD Head CT 01/11/19 13:17 IMPRESSION: 1. No acute findings in the head. 2. Chronic changes as above. D/ / Sekou Damico MD / Sekou Damico MD Interpreting Provider: Sekou Damico MD Lumbar Spine CT 01/11/19 13:29 IMPRESSION: No evidence of acute traumatic injury of the thoracic or lumbar spine. D/ / 01/11/2019 15:03:38 Sheldon Clayton MD / jarvis Interpreting Provider: Sheldon Clayton MD Thoracic Spine CT 01/11/19 13:29 IMPRESSION: No evidence of acute traumatic injury of the thoracic or lumbar spine. D/ / 01/11/2019 15:03:38 Sheldon Clayton MD / jarvis Interpreting Provider: Sheldon Clayton MD Pelvis X-Ray 01/11/19 13:47 IMPRESSION: Stable visualized left hip arthroplasty and right internal fixation hardware. No acute osseous abnormality. Given the degree of osteopenia, nondisplaced fractures may be radiographically occult. If pain or concern for fracture persists, consider MR or CT imaging. D/ / 01/11/2019 14:20:03 Medina Clayton MD / jarvis Interpreting Provider: Medina Clayton MD Chest CTA 01/11/19 15:22 IMPRESSION: No evidence pulmonary embolism. Bilateral lower lobe, mostly dependent, airspace disease, greater on the right including posterior right lower lobe consolidation, atelectasis and/or pneumonia. D/ / Lexy Us Cha, MD / Lexy Us Cha, MD Interpreting Provider: Lexy Us Cha, MD - Summary of Assessment and Plan Summary of Assessment and Plan: 1.Presyncope: my interpretation of EKG showing normal sinus rhythm with primary AV block. Orthostatics blood pressure, cardiac telemetry and observation. 2.Fall secondary to dysequilibrium and suspected orthostatic hypotension, and medication. CT head,neck, lumbar, thoracic, and pelvic showed no acute traumatic injury Chest x-ray showed no acute fracture, CTA no PE Medication reviewed(gabapentin 300 TID while in [facility]), ordered PT evaluation. 3.Hypokalemia: replaced. 4.Acute Renal failure: way above baseline Cr. Likely pre-renal due to hypovolemic on exam. IVF given. Recheck in the AM. 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 Will need discussion about risks and benefits prior to initiating chronic anticoagulation due to hx of falls and bleeding ulcers in the past. Chronic medical condition: chronic pain: held pain med HFpEF: NYHA 3 - Continue home med. held lasix Hx of vertigo: meclizine insomnia: zolpidem. DVT prophylaxis: on systemic. Dispo: will need > 2 day of stay. - Time Spent With Patient Total time spent is greater than 37 minutes 50% in coordination of care (as documented) at patient's floor/unit and/or counseling patient: Greater than 35 minutes
[2019-01-12] MEDS: 0.9 % Sodium Chloride 1,000 ML IVC SCH ×2 (00:12→09:37)
[2019-01-12] MEDS ORDERED: *HR* Heparin 5,000 UNIT/ML VIAL IVP ONE (00:48)
[2019-01-12] MEDS ORDERED: *HR* Heparin 5,000 UNIT/ML VIAL IVP PRN ×2 (00:48)
[2019-01-12] MEDS ORDERED: Ringers Solution, Lactated 500 ML IVC ONE (00:52)
[2019-01-12] MEDS ORDERED: Acetaminophen 325 MG TABLET PO PRN (01:09)
[2019-01-12] MEDS ORDERED: *HR* HYDROcodone/Acet 5/325 mg TABLET PO PRN (01:09)
[2019-01-12 01:14] LABS: White Blood Count 10.2 K/mcL (4.3-11.1)
[2019-01-12 01:15] LABS: Basophils % 0.3 %; Eosinophils # 0.2 K/mcL (0.0-0.6); Eosinophils % 1.6 %; Immature Granulocytes % 0.3 % (0-4); Lymphocytes # 0.8 K/mcL (0.6-4.6); Mean Corpuscular HGB Conc 31.1 g/dL (31.6-35.5); Mean Corpuscular Hemoglobin 27.7 pg (28.0-33.3); Mean Corpuscular Volume 88.8 fL (83.0-100.0); Mean Platelet Volume 9.7 fL (9.4-12.4); Monocytes # 0.7 K/mcL (0.0-1.3); Monocytes % 6.5 %; Neutrophils # 8.5 K/mcL (1.6-8.9); Platelet Count 276 K/mcL (140-400); Red Blood Count 3.94 M/mcL (3.82-4.97); Red Cell Distribution Width 15.9 % (11.5-14.5); Segmented Neutrophils % 83.3 %
[2019-01-12 01:16] LABS: Hemoglobin 10.9 g/dL (11.5-15.4)
[2019-01-12 01:29] LABS: Activated Partial Thrombo Time 29.5 Seconds (26.0-36.0)
[2019-01-12 01:35] LABS: Heparin anti-factor XA UFH 0.04 IU/mL (0.30-0.70); INR 1.1; Prothrombin Time 12.6 Seconds (9.4-12.1)
[2019-01-12 02:08] LABS: Hematocrit 35.4 % (35.3-44.9); Hemoglobin 11.6 g/dL (11.5-15.4); Mean Corpuscular HGB Conc 32.8 g/dL (31.6-35.5); Mean Corpuscular Hemoglobin 27.8 pg (28.0-33.3); Mean Corpuscular Volume 84.7 fL (83.0-100.0); Mean Platelet Volume 10.8 fL (9.4-12.4); Platelet Count 189 K/mcL (140-400); Red Blood Count 4.18 M/mcL (3.82-4.97); Red Cell Distribution Width 15.8 % (11.5-14.5); White Blood Count 12.1 K/mcL (4.3-11.1)
[2019-01-12] MEDS: Heparin 25,000 UNIT/250 ML D5W 25,000 UNIT/250 ML IV.SOLN IVC SCH (02:30)
[2019-01-12] MEDS ORDERED: Cyanocobalamin (B-12) 1,000 MCG TABLET PO SCH (09:00)
[2019-01-12 09:03] LABS: Hematocrit 35.7 % (35.3-44.9); Hemoglobin 11.1 g/dL (11.5-15.4)
[2019-01-12] MEDS: Diltiazem CD (24hr) 180 MG CAPSULE PO SCH (09:44)
[2019-01-12] MEDS: Magnesium Oxide 400 MG TABLET PO SCH (09:44)
[2019-01-12 09:53] LABS: Alanine Aminotransferase 8 Units/L (7-52); Albumin 3.7 g/dL (3.5-5.7); Albumin/Globulin Ratio 1.8 (1.1-2.2); Alkaline Phosphatase 109 Units/L (34-104); Aspartate Amino Transferase 14 Units/L (13-39); BUN/Creatinine Ratio 15 (6-26); Bilirubin,Total 0.5 mg/dL (0.3-1.0); Blood Urea Nitrogen 10 mg/dL (8-23); Calcium 8.8 mg/dL (8.6-10.3); Carbon Dioxide 29 mEq/L (23-29); Chloride 102 mEq/L (98-107); Chol/HDL Ratio 2.5 (0-4.9); Cholesterol 133 mg/dL (< 200); Globulin 2.1 g/dL (2.4-3.5); Glucose 144 mg/dL (70-105); HDL Cholesterol 53 mg/dL (40-59); LDL Cholesterol,Calculated 64 mg/dL (0-99); Magnesium 2.1 mg/dL (1.6-2.6); Osmolality,Calculated 288 (280-300); Potassium 3.8 mEq/L (3.5-5.1); Sodium 138 mEq/L (136-145); Total Protein 5.8 g/dL (6.4-8.9); Triglycerides 78 mg/dL (< 150); eGFR For African Americans > 60 (> 60); eGFR For Non-African Americans > 60 (> 60)
--- NOTE | 2019-01-12 13:26 | Internal Med Progress Note ---
Hospitalist Progress Note - Encounter Date of Encounter: 01/12/19 Time of Encounter: 09:30 - Subjective Interval History: Ms. Cooper is a 78 year old elderly female with past medical history of hypertension, hyperlipidemia, fibromyalgia, CVA and chronic pain pt presented to the ED after a fall. Patient stated while sitting in the living room watching TV stood up and noticed herself to be dizzy and shaky with feeling bad sensation lasting for seconds to minutes. Patient took 2 steps with a walker then fell behind landing on her back and her posterior head. Patient denied complete loss of consciousness and was on the floor for a few minutes due to feeling week to get up before her daughter was present. She did c/o Rt leg swelling and pain. She does have chronic varicose veins. She is alert, awake and O x 3. Denied any CP / SOB. Still feeling weak and lethargic. She still c.o RLE pain and swelling. - Exam Vitals: Temp Pulse Resp BP Pulse Ox 98.7 F 103 16 174/94 93 01/12/19 11:36 01/12/19 11:36 01/12/19 11:36 01/12/19 11:36 01/12/19 11:36 Exam: Gen: Alert, awake, Oriented to time,place and person Chest: Diminished breath sounds B/L, No wheezing, No crackles, No rales Heart: S1S2+ RRR No murmurs Abd: Soft, NT, BS +, No organomegaly Ext: No edema, pulses are palpable, No calf tenderness Neuro : No acute focal neuro deficits noticed Skin: No rash. - Assessment and Plan (1) Right femoral vein DVT Current Visit: Yes Status: Acute Assessment and Plan: cont heparin gtt does look chronic thrombosis she is high risk for DVT G2 her varicose veins and for emulation.. However she is high risk for falls too will continue heparin drip for now will talk to family about further anticoagulation choices (2) UTI (urinary tract infection) Current Visit: Yes Status: Acute Assessment and Plan: Urine looks abnormal started on empirical antibiotic IV Rocephin will follow-up on urine culture (3) Pre-syncope Current Visit: Yes Status: Acute Assessment and Plan: Mostly vaso vagal and ortho static her ortho stats were positive cont IV hydration con on tele reviewed her 2D Echo from 08/25 - showed preserved LEVF Will check carotid doppler now also will get Brain MRI to r/o CVA, since she is high risk for CVA PT / OT eval (4) Weakness Current Visit: No Status: Acute (5) Hypertension Current Visit: No Status: Chronic Assessment and Plan: Stable blood pressure with current home medications (6) Hypokalemia Current Visit: No Status: Resolved Assessment and Plan: Resolved - Time Spent with Patient Total time spent is greater than 50% in coordination of care (as documented) at patient's floor/unit and/or counseling patient: Internal Medicine: Result - Labs CBC & Chem 7: 01/12/19 08:46 01/12/19 08:46 Labs: Short CBC 01/11/19 01/12/19 01/12/19 Range/Units 13:49 00:59 01:56 WBC 9.5 10.2 12.1 H (4.3-11.1) K/mcL Hgb 12.8 10.9 L D 11.6 (11.5-15.4) g/dL Hct 40.4 35.0 L 35.4 (35.3-44.9) % Plt Count 322 276 189 (140-400) K/mcL Neutrophils # 7.8 8.5 (1.6-8.9) K/mcL 01/12/19 Range/Units 08:46 WBC (4.3-11.1) K/mcL Hgb 11.1 L (11.5-15.4) g/dL Hct 35.7 (35.3-44.9) % Plt Count (140-400) K/mcL Neutrophils # (1.6-8.9) K/mcL BMP 01/11/19 01/12/19 13:49 08:46 Sodium 137 138 Potassium 2.8 L 3.8 D Chloride 95 L 102 Carbon Dioxide 27 29 BUN 16 10 Creatinine 1.16 0.66 Glucose 111 H 144 H Calcium 9.4 8.8 Cardiac Enzymes 01/11/19 Range/Units 13:49 Troponin I < 0.03 (< 0.04) ng/mL Liver Function 01/11/19 01/11/19 01/12/19 Range/Units 13:49 13:49 01:56 Total Bilirubin 0.6 0.6 (0.3-1.0) mg/dL Direct Bilirubin 0.2 (0.0-0.2) mg/dL GGT 10 (1-24) Units/L AST 18 16 (13-39) Units/L ALT 10 10 (7-52) Units/L Alkaline Phosphatase 121 H 130 H (34-104) Units/L Albumin 4.2 4.2 (3.5-5.7) g/dL 01/12/19 Range/Units 08:46 Total Bilirubin 0.5 (0.3-1.0) mg/dL Direct Bilirubin (0.0-0.2) mg/dL GGT (1-24) Units/L AST 14 (13-39) Units/L ALT 8 (7-52) Units/L Alkaline Phosphatase 109 H (34-104) Units/L Albumin 3.7 (3.5-5.7) g/dL Urine 01/11/19 Range/Units 16:49 Urine Color Yellow (Yellow) Urine Clarity Cloudy A (Clear) Urine pH 5.5 (5.0-8.0) pH Units Ur Specific [place] 1.019 (1.010-1.025) Urine Protein Trace (Neg-Trace) mg/dL Urine Glucose (UA) Normal (Normal) mg/dL - ABG Interpretation ABG results: PT/INR, D-dimer PT 12.6 Seconds (9.4-12.1) H 01/12/19 00:59 - Impressions Impressions Cervical Spine CT 01/11/19 13:17 IMPRESSION: No acute traumatic injury of the cervical spine. Chronic stable changes throughout the cervical spine with severe multilevel disc and facet degenerative changes and reversal of the normal cervical lordosis. Remote fusion of the C5 through C7 vertebrae. D/ / 01/11/2019 15:03:14 Imer Gamez MD / Radha Power Interpreting Provider: Imer Gamez MD Chest X-Ray 01/11/19 13:17 IMPRESSION: No active cardiopulmonary disease D/ / Bear Pelletier MD / Bear Pelletier MD Interpreting Provider: Bear Pelletier MD Head CT 01/11/19 13:17 IMPRESSION: 1. No acute findings in the head. 2. Chronic changes as above. D/ / Sekou Damico MD / Sekou Damico MD Interpreting Provider: Sekou Damico MD Lumbar Spine CT 01/11/19 13:29 IMPRESSION: No evidence of acute traumatic injury of the thoracic or lumbar spine. D/ / 01/11/2019 15:03:38 Sheldon Clayton MD / jarvis Interpreting Provider: Sheldon Clayton MD Thoracic Spine CT 01/11/19 13:29 IMPRESSION: No evidence of acute traumatic injury of the thoracic or lumbar spine. D/ / 01/11/2019 15:03:38 Sheldon Clayton MD / jarvis Interpreting Provider: Sheldon Clayton MD Pelvis X-Ray 01/11/19 13:47 IMPRESSION: Stable visualized left hip arthroplasty and right internal fixation hardware. No acute osseous abnormality. Given the degree of osteopenia, nondisplaced fractures may be radiographically occult. If pain or concern for fracture persists, consider MR or CT imaging. D/ / 01/11/2019 14:20:03 Medina Clayton MD / jarvis Interpreting Provider: Medina Clayton MD Chest CTA 01/11/19 15:22 IMPRESSION: No evidence pulmonary embolism. Bilateral lower lobe, mostly dependent, airspace disease, greater on the right including posterior right lower lobe consolidation, atelectasis and/or pneumonia. D/ / Lexy Us Cha, MD / Lexy Us Cha, MD Interpreting Provider: Lexy Us Cha, MD - VTE Reasons for not Prescribing Prophylaxis: Not indicated-Anticoagulated or INR therapeutic Consult Discharge Plan - Plan Referrals: Jimbo Fonseca [Primary Care Provider] - 01/23/19 11:00 am (5) Hypertension Qualifiers: Hypertension type: essential hypertension Qualified Code(s): I10 - Essential (primary) hypertension
[2019-01-12] MEDS: cefTRIAXone 1,000 MG in Water for inj. (sterile) 10 ML IVP SCH (14:27)
[2019-01-12] MEDS ORDERED: *HR* LORazepam 0.5 MG TABLET PO ONE (16:50)
[2019-01-12 23:17] LABS: Bilirubin,Urine Negative (Negative); Blood,Urine Negative (Negative); Clarity,Urine Clear (Clear); Color,Urine Yellow (Yellow); Glucose,Urine (UA) Normal (Normal); Ketones,Urine Negative (Negative); Leukocyte Esterase,Urine Negative (Negative); Nitrite,Urine Negative (Negative); Protein,Urine Negative (Neg-Trace); Specific Gravity,Urine 1.018 (1.010-1.025); Urobilinogen,Urine Normal (Normal)
[2019-01-13] MEDS: Heparin 25,000 UNIT/250 ML D5W 25,000 UNIT/250 ML IV.SOLN IVC SCH (01:25)
[2019-01-13 03:50] LABS: Hematocrit 34.3 % (35.3-44.9); Hemoglobin 10.6 g/dL (11.5-15.4); Mean Corpuscular HGB Conc 30.9 g/dL (31.6-35.5); Mean Corpuscular Hemoglobin 27.5 pg (28.0-33.3); Mean Corpuscular Volume 89.1 fL (83.0-100.0); Mean Platelet Volume 9.9 fL (9.4-12.4); Platelet Count 262 K/mcL (140-400); Red Blood Count 3.85 M/mcL (3.82-4.97); Red Cell Distribution Width 15.9 % (11.5-14.5); White Blood Count 8.4 K/mcL (4.3-11.1)
[2019-01-13 04:12] LABS: BUN/Creatinine Ratio 10 (6-26); Blood Urea Nitrogen 5 mg/dL (8-23); Calcium 8.8 mg/dL (8.6-10.3); Carbon Dioxide 29 mEq/L (23-29); Chloride 100 mEq/L (98-107); Glucose 112 mg/dL (70-105); Osmolality,Calculated 284 (280-300); Potassium 3.4 mEq/L (3.5-5.1); Sodium 138 mEq/L (136-145); eGFR For African Americans > 60 (> 60); eGFR For Non-African Americans > 60 (> 60)
[2019-01-13] MEDS: Magnesium Oxide 400 MG TABLET PO SCH (10:04)
[2019-01-13] MEDS: cefTRIAXone 1,000 MG in Water for inj. (sterile) 10 ML IVP SCH (10:04)
[2019-01-13] MEDS: Diltiazem CD (24hr) 180 MG CAPSULE PO SCH (10:04)
--- NOTE | 2019-01-13 16:09 | Internal Med Progress Note ---
Hospitalist Progress Note - Encounter Date of Encounter: 01/13/19 Time of Encounter: 11:00 - Subjective Interval History: No acute events overnight. Patient states that the thrombosis in the right lower extremity was diagnosed 25 years ago following a right inguinal hernia surgery which was immobilized for a prolonged period. She states that she was given anticoagulation for a while and was subsequently stopped by the lymph node remains swollen since then and has never resolved. She denies chest pain shortness of breath and palpitations. - Exam Vitals: Temp Pulse Resp BP Pulse Ox 36.6 C 70 18 149/75 94 01/13/19 15:43 01/13/19 15:43 01/13/19 15:43 01/13/19 15:43 01/13/19 15:43 Exam: GENERAL: Not in distress. Alert and Oriented HEENT: EOMI, PERRLA MOUTH: Moist oral mucosa NECK:No JVD, No lymph nodes. CHEST AND LUNGS: Normal breath sounds, no wheezes or crackles HEART: S1 and S2 normal, no murmurs ABDOMEN: Soft, nontender, no organomegaly SKIN: Normal color, no rahses, no lesions EXTREMITIES: Right lower extremity with +2 pitting edema, no tenderness on palpation. No edema in left lower extremity NEUROLOGICAL: Normal cognition, normal motor and sensory exam. - Assessment and Plan (1) Hypokalemia Current Visit: No Status: Resolved Assessment and Plan: Potassium of 3.4 today We will correct and monitor. 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 (4) Post-thrombotic syndrome Current Visit: Yes Status: Acute Assessment and Plan: Management as above (5) UTI (urinary tract infection) Current Visit: Yes Status: Acute Assessment and Plan: Urine culture came back with mixed organisms This finding is more consistent with contamination. We will discontinue antibiotics and monitor. (6) Pre-syncope Current Visit: Yes Status: Acute Assessment and Plan: Patient was orthostatic positive on admission. Evaluation with imaging including MRI has been negative so far for an acute intracranial process. Patient will be encouraged to maintain good oral hydration. - Time Spent with Patient Total time spent is greater than 50% in coordination of care (as documented) at patient's floor/unit and/or counseling patient: Internal Medicine: Result - Labs CBC & Chem 7: 01/13/19 03:18 01/13/19 03:18 Labs: Short CBC 01/13/19 Range/Units 03:18 WBC 8.4 (4.3-11.1) K/mcL Hgb 10.6 L (11.5-15.4) g/dL Hct 34.3 L (35.3-44.9) % Plt Count 262 (140-400) K/mcL BMP 01/13/19 03:18 Sodium 138 Potassium 3.4 L Chloride 100 Carbon Dioxide 29 BUN 5 L Creatinine 0.50 L Glucose 112 H Calcium 8.8 Urine 01/12/19 Range/Units 22:50 Urine Color Yellow (Yellow) Urine Clarity Clear (Clear) Urine pH 6.0 (5.0-8.0) pH Units Ur Specific [place] 1.018 (1.010-1.025) Urine Protein Negative (Neg-Trace) mg/dL Urine Glucose (UA) Normal (Normal) mg/dL - ABG Interpretation ABG results: PT/INR, D-dimer PT 12.6 Seconds (9.4-12.1) H 01/12/19 00:59 - Impressions Impressions Pelvis X-Ray 01/11/19 13:47 IMPRESSION: Stable visualized left hip arthroplasty and right internal fixation hardware. No acute osseous abnormality. Given the degree of osteopenia, nondisplaced fractures may be radiographically occult. If pain or concern for fracture persists, consider MR or CT imaging. D/ / 01/11/2019 14:20:03 Medina Clayton MD / jarvis Interpreting Provider: Medina Clayton MD Brain MRI 01/12/19 09:33 IMPRESSION: No acute stroke, intracranial hemorrhage or mass effect. Moderate chronic small vessel ischemic disease. D/ / Jered Sessions / Jered Sessions Interpreting Provider: Jered Sessions - VTE Reasons for not Prescribing Prophylaxis: Not indicated-Anticoagulated or INR therapeutic Consult Discharge Plan - Plan Referrals: Jimbo Fonseca [Primary Care Provider] - 01/23/19 11:00 am (2) Hypertension Qualifiers: Hypertension type: essential hypertension Qualified Code(s): I10 - Essential (primary) hypertension (3) Right femoral vein DVT Qualifiers: Chronicity: chronic Qualified Code(s): I82.511 - Chronic embolism and thrombosis of right femoral vein
[2019-01-14] MEDS: Heparin 25,000 UNIT/250 ML D5W 25,000 UNIT/250 ML IV.SOLN IVC SCH (01:40)
[2019-01-14 07:41] VITALS: BP 162/81
[2019-01-14] MEDS: cefTRIAXone 1,000 MG in Water for inj. (sterile) 10 ML IVP SCH (07:57)
[2019-01-14] MEDS: Magnesium Oxide 400 MG TABLET PO SCH (07:57)
[2019-01-14] MEDS: Diltiazem CD (24hr) 180 MG CAPSULE PO SCH (07:57)
--- NOTE | 2019-01-14 08:58 | Discharge Summary ---
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 Alberto recomend elastic stocking and exercises and a possible follow up with vascular surgery. 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 Cooper is a 78 year old female with a past medical history of hypertension, hyperlipidemia, fibromyalgia, CVA, and DVT with chronic right lower extremity pain. Patient presented to the ED after she fell at home. She was attempting to get up from her chair felt dizzy and then fell on her back. Orthostatics at presentation were positive. This could be due to patient's antihypertensives but her blood pressure was on higher side when her medications were held. I believe patient will need more time with home health respite care provider to manage her blood pressure medications. Evaluation of this admission also discovered chronic common femoral vein thrombosis which patient states she is aware of and had his DVT 25 years ago after prolonged immobilization following a right inguinal surgery. I believe she has post-thrombotic syndrome and would benefit from elastic stockings and exercises of the extremity. I recommended follow-up with a vascular surgeon as outpatient. Discharge discussed with: patient, nurse - Time Spent with Patient Total time spent providing and/or coordinating discharge services: Time spent: Greater than 30 minutes (40) - Discharge Medications Prescriptions: Continued Zolpidem [Ambien] 5 mg PO HS Omeprazole [PriLOSEC] 20 mg PO DAILY Meclizine HCl [Verticalm] 25 mg PO BID Citalopram Hydrobromide [Celexa] 20 mg PO DAILY Cyanocobalamin (Vitamin B-12) [Vitamin B12] 1,000 mcg PO MOFR Gabapentin [Neurontin] 300 mg PO TID Potassium Chloride [K-Tab ER] 10 meq PO BID Polyethylene Glycol 3350 [MiraLAX] 17 gm PO DAILY Loperamide HCl [Imodium A-D] 2 mg PO PRN PRN MDD 16 mg PRN Reason: Loose Stool HYDROcodone/Acet 5/325 mg [[place] 5-325 mg] 1 tab PO Q4H PRN PRN Reason: Pain Acetaminophen [Tylenol] 650 mg PO Q4HR PRN MDD 3000MG PRN Reason: Pain/ELEVATED TEMP Diltiazem HCl [Cardizem LA] 360 mg PO DAILY Bisacodyl [Gentle Laxative] 10 mg RC DAILY PRN PRN Reason: Constipation Cholecalciferol (Vitamin D3) [Dialyvite Vitamin D] 5,000 units PO DAILY [place] Starch [Resource Thickenup] 1 appl TP DAILY Furosemide [Lasix] 40 mg PO DAILY GuaiFENesin/Dextromethorphan [Robafen Dm Cough Syrup] 5 ml PO Q4H PRN PRN Reason: Cough Mag Hydrox/Al Hydrox/Simeth [Antacid Suspension] 30 ml PO QID PRN PRN Reason: Indigestion Menthol [Biofreeze] 1 appl TP Q8H PRN PRN Reason: HIP PAIN MOM Conc [MILK OF MAGNESIA conc] 30 ml PO DAILY PRN PRN Reason: Constipation Na Phos,M-B/Na Phos,Di-Ba [Fleet Enema Extra] 118 ml RC DAILY PRN PRN Reason: Constipation Simvastatin [Zocor] 10 mg PO HS Home Medications: Citalopram Hydrobromide [Celexa] 20 mg PO DAILY 06/01/16 [History] Meclizine HCl [Verticalm] 25 mg PO BID 06/01/16 [History] Omeprazole [PriLOSEC] 20 mg PO DAILY 06/01/16 [History] Zolpidem [Ambien] 5 mg PO HS 06/01/16 [History] Cyanocobalamin (Vitamin B-12) [Vitamin B12] 1,000 mcg PO MOFR 09/05/18 [History] Gabapentin [Neurontin] 300 mg PO TID 09/05/18 [History] Potassium Chloride [K-Tab ER] 10 meq PO BID 09/05/18 [History] Acetaminophen [Tylenol] 650 mg PO Q4HR PRN MDD 3000MG 01/11/19 [History] Bisacodyl [Gentle Laxative] 10 mg RC DAILY PRN 01/11/19 [History] Cholecalciferol (Vitamin D3) [Dialyvite Vitamin D] 5,000 units PO DAILY 01/11/19 [History] [place] Starch [Resource Thickenup] 1 appl TP DAILY 01/11/19 [History] Diltiazem HCl [Cardizem LA] 360 mg PO DAILY 01/11/19 [History] Furosemide [Lasix] 40 mg PO DAILY 01/11/19 [History] GuaiFENesin/Dextromethorphan [Robafen Dm Cough Syrup] 5 ml PO Q4H PRN 01/11/19 [History] HYDROcodone/Acet 5/325 mg [[place] 5-325 mg] 1 tab PO Q4H PRN 01/11/19 [History] Loperamide HCl [Imodium A-D] 2 mg PO PRN PRN MDD 16 mg 01/11/19 [History] MOM Conc [MILK OF MAGNESIA conc] 30 ml PO DAILY PRN 01/11/19 [History] Mag Hydrox/Al Hydrox/Simeth [Antacid Suspension] 30 ml PO QID PRN 01/11/19 [History] Menthol [Biofreeze] 1 appl TP Q8H PRN 01/11/19 [History] Na Phos,M-B/Na Phos,Di-Ba [Fleet Enema Extra] 118 ml RC DAILY PRN 01/11/19 [History] Polyethylene Glycol 3350 [MiraLAX] 17 gm PO DAILY 01/11/19 [History] Simvastatin [Zocor] 10 mg PO HS 01/11/19 [History] Allergies/Adverse Reactions: Allergy/AdvReac Type Severity Reaction Status Date / Time morphine Allergy "MAKES ME Verified 01/11/19 23:35 SICK/NUTS" Date of admission: 01/11/19 21:21 Primary care physician: Jimbo Fonseca Consults: 01/12/19 10:43 Consult to Occupational Therapy [CONS] Routine Comment: Evaluate, develop and implement POC Reason for Consult: falls Does patient have active BEDREST order?: No Is patient medically & hemodynamically stable?: Yes Patient assessed for mobility or mobilized this visit?: Yes 01/12/19 10:48 PT [Consult to Physical Therapy] [CONS] Routine Comment: Evaluate, develop and implement POC Reason for Consult: Fall.. Does patient have active BEDREST order?: No Is patient medically & hemodynamically stable?: Yes Patient assessed for mobility or mobilized this visit?: Yes - Constitutional Vitals: Temp Pulse Resp BP Pulse Ox 36.7 C 83 16 162/81 93 01/14/19 07:36 01/14/19 07:36 01/14/19 07:36 01/14/19 07:36 01/14/19 07:36 Exam: GENERAL: Not in distress. Alert and Oriented HEENT: EOMI, PERRLA MOUTH: Moist oral mucosa NECK:No JVD, No lymph nodes. CHEST AND LUNGS: Normal breath sounds, no wheezes or crackles HEART: S1 and S2 normal, no murmurs ABDOMEN: Soft, nontender, no organomegaly SKIN: Normal color, no rahses, no lesions EXTREMITIES: Right lower extremity with +2 pitting edema, mild tenderness on palpation. No edema in left lower extremity NEUROLOGICAL: Normal cognition, normal motor and sensory exam. - Patient Status Disposition: Transfer SNF Condition: Fair Functional capacity at discharge: uses cane/walker Overall status at discharge: patient is progressing back to baseline - Discharge Instructions Follow Up With: Jimbo Fonseca [Primary Care Provider] - 01/23/19 11:00 am - VTE Reasons for not Prescribing Prophylaxis: Not indicated-Anticoagulated or INR therapeutic
--- NOTE | 2019-01-14 09:13 | Physician Discharge Referral ---
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 (4) Hypokalemia Priority: Secondary Status: Resolved (5) Hypertension Priority: Secondary Status: Chronic (6) UTI (urinary tract infection) Priority: Secondary Status: Acute - Transfer Medications Home Medications: Citalopram Hydrobromide [Celexa] 20 mg PO DAILY 06/01/16 [History] Meclizine HCl [Verticalm] 25 mg PO BID 06/01/16 [History] Omeprazole [PriLOSEC] 20 mg PO DAILY 06/01/16 [History] Zolpidem [Ambien] 5 mg PO HS 06/01/16 [History] Cyanocobalamin (Vitamin B-12) [Vitamin B12] 1,000 mcg PO MOFR 09/05/18 [History] Gabapentin [Neurontin] 300 mg PO TID 09/05/18 [History] Potassium Chloride [K-Tab ER] 10 meq PO BID 09/05/18 [History] Acetaminophen [Tylenol] 650 mg PO Q4HR PRN MDD 3000MG 01/11/19 [History] Bisacodyl [Gentle Laxative] 10 mg RC DAILY PRN 01/11/19 [History] Cholecalciferol (Vitamin D3) [Dialyvite Vitamin D] 5,000 units PO DAILY 01/11/19 [History] White Starch [Resource Thickenup] 1 appl TP DAILY 01/11/19 [History] Diltiazem HCl [Cardizem LA] 360 mg PO DAILY 01/11/19 [History] Furosemide [Lasix] 40 mg PO DAILY 01/11/19 [History] GuaiFENesin/Dextromethorphan [Robafen Dm Cough Syrup] 5 ml PO Q4H PRN 01/11/19 [History] HYDROcodone/Acet 5/325 mg [[place] 5-325 mg] 1 tab PO Q4H PRN 01/11/19 [History] Loperamide HCl [Imodium A-D] 2 mg PO PRN PRN MDD 16 mg 01/11/19 [History] MOM Conc [MILK OF MAGNESIA conc] 30 ml PO DAILY PRN 01/11/19 [History] Mag Hydrox/Al Hydrox/Simeth [Antacid Suspension] 30 ml PO QID PRN 01/11/19 [History] Menthol [Biofreeze] 1 appl TP Q8H PRN 01/11/19 [History] Na Phos,M-B/Na Phos,Di-Ba [Fleet Enema Extra] 118 ml RC DAILY PRN 01/11/19 [History] Polyethylene Glycol 3350 [MiraLAX] 17 gm PO DAILY 01/11/19 [History] Simvastatin [Zocor] 10 mg PO HS 01/11/19 [History] Allergies/Adverse Reactions: Allergy/AdvReac Type Severity Reaction Status Date / Time morphine Allergy "MAKES ME Verified 01/11/19 23:35 SICK/NUTS" - Respiratory Orders Smoking Cessation: Smoking cessation has been advised. For more information, call the [place] Tobacco Quit Line at 0-727-MLBC-NOW. - Rehabiliation Orders Rehab Orders: Evaluation for Physical Therapy, Evaluation for Occupational Therapy CERTIFICATION: I certify that the transfer of the above named patient to an Extended Care Facility is necessary for the continuing treatment of the diagnosis listed. The above information is true and accurate reflection of patient's current c ondition. Confidential - Redisclosure prohibited without a patient's written consent.
== END 2019-01-14 11:34 ==
LOC: EMEROOARM 13:02 → 3BNU 13:02 → SUATTDRO 21:21 → 3BNU 22:02 → SUATTDRO 01-12 01:01
PROVIDERS: ADMIT Family Medicine; ATTEND Internal Medicine

== ENCOUNTER 2019-07-06 13:42 | Inpatient (IN) ==
[2019-07-06] MEDS ORDERED: *HR* Ticagrelor 90 MG TABLET ONE (14:00)
[2019-07-06] MEDS ORDERED: Aspirin 81 MG TAB.CHEW ONE (14:00)
[2019-07-06] MEDS ORDERED: 0.9 % Sodium Chloride 1,000 ML ONE ×2 (14:00→14:01)
[2019-07-06] MEDS ORDERED: *HR* Heparin 5,000 UNIT/ML VIAL ONE (14:00)
[2019-07-06] MEDS ORDERED: Heparin 1,000 UNITS/500 mL 500 ML ONE (14:04)
[2019-07-06] MEDS ORDERED: ISOVUE-370 200 ML INFUS..BTL ONE (14:04)
[2019-07-06] MEDS ORDERED: 0.9 % Sodium Chloride 2,000 ML ONE (14:04)
[2019-07-06] MEDS ORDERED: *HR* Heparin 10,000 UNIT/10 ML VIAL ONE (14:04)
[2019-07-06] MEDS ORDERED: Nitroglycerin 1,000 MCG/10 ML VIAL IV ONE (14:04)
[2019-07-06] MEDS ORDERED: *HR* Bivalirudin 250 MG VIAL IVC ONE (14:05)
[2019-07-06 14:17] LABS: Basophils % 0.1 %; Eosinophils % 0.1 %; Hemoglobin 12.2 g/dL (11.5-15.4); Immature Granulocytes % 0.4 % (0-4); Lymphocytes # 1.4 K/mcL (0.6-4.6); Lymphocytes % 9.5 %; Mean Corpuscular HGB Conc 31.3 g/dL (31.6-35.5); Mean Corpuscular Hemoglobin 29.4 pg (28.0-33.3); Mean Platelet Volume 9.6 fL (9.4-12.4); Monocytes # 0.9 K/mcL (0.0-1.3); Monocytes % 6.2 %; Platelet Count 330 K/mcL (140-400); Red Blood Count 4.15 M/mcL (3.82-4.97); Red Cell Distribution Width 13.2 % (11.5-14.5); Segmented Neutrophils % 83.7 %; White Blood Count 14.4 K/mcL (4.3-11.1)
[2019-07-06] MEDS ORDERED: *HR* Midazolam HCl 2 MG/2 ML VIAL ONE (14:21)
[2019-07-06] MEDS ORDERED: *HR* FentaNYL (PF) 100 MCG/2 ML VIAL ONE (14:21)
[2019-07-06 14:28] LABS: INR 1.1; Prothrombin Time 12.3 Seconds (9.4-12.1)
[2019-07-06 14:31] LABS: Activated Partial Thrombo Time 34.1 Seconds (26.0-36.0)
[2019-07-06 14:42] LABS: BUN/Creatinine Ratio 20 (6-26); Blood Urea Nitrogen 16 mg/dL (8-23); Calcium 9.2 mg/dL (8.6-10.3); Carbon Dioxide 30 mEq/L (23-29); Chloride 95 mEq/L (98-107); Glucose 127 mg/dL (70-105); Magnesium 1.8 mg/dL (1.6-2.6); Osmolality,Calculated 287 (280-300); Potassium 4.1 mEq/L (3.5-5.1); Sodium 137 mEq/L (136-145); Troponin I < 0.03 ng/mL (< 0.04); eGFR For African Americans > 60 (> 60); eGFR For Non-African Americans > 60 (> 60)
[2019-07-06] MEDS ORDERED: *HR* Adenosine 6 MG/2 ML VIAL IVP ONE (14:47)
[2019-07-06] MEDS ORDERED: Naloxone 0.4 MG/ML INJ IVP PRN (15:40)
[2019-07-06] MEDS ORDERED: 0.9 % Sodium Chloride 1,000 ML IVC SCH (15:45)
[2019-07-06] MEDS ORDERED: Furosemide 20 MG/2 ML VIAL IVP SCH (16:00)
[2019-07-06] MEDS: *HR* Heparin 5,000 UNIT/ML VIAL SQ SCH (16:14)
[2019-07-06] MEDS ORDERED: *HR* Atropine Sulfate 1 MG/10 ML SYRINGE ONE (19:44)
[2019-07-06] MEDS: *HR* HYDROcodone/Acet 5/325 mg TABLET PO PRN (22:01)
[2019-07-07 03:21] LABS: Basophils % 0.1 %; Eosinophils # 0.1 K/mcL (0.0-0.6); Eosinophils % 0.8 %; Hematocrit 32.9 % (35.3-44.9); Hemoglobin 10.7 g/dL (11.5-15.4); Immature Granulocytes % 0.3 % (0-4); Lymphocytes # 1.4 K/mcL (0.6-4.6); Lymphocytes % 16.1 %; Mean Corpuscular HGB Conc 32.5 g/dL (31.6-35.5); Mean Corpuscular Hemoglobin 31.1 pg (28.0-33.3); Mean Corpuscular Volume 95.6 fL (83.0-100.0); Monocytes # 0.7 K/mcL (0.0-1.3); Monocytes % 8.4 %; Neutrophils # 6.5 K/mcL (1.6-8.9); Platelet Count 277 K/mcL (140-400); Red Blood Count 3.44 M/mcL (3.82-4.97); Red Cell Distribution Width 13.3 % (11.5-14.5); Segmented Neutrophils % 74.3 %; White Blood Count 8.7 K/mcL (4.3-11.1)
[2019-07-07 03:38] LABS: BUN/Creatinine Ratio 17 (6-26); Blood Urea Nitrogen 15 mg/dL (8-23); Calcium 9.2 mg/dL (8.6-10.3); Carbon Dioxide 33 mEq/L (23-29); Chloride 101 mEq/L (98-107); Glucose 115 mg/dL (70-105); Magnesium 2.1 mg/dL (1.6-2.6); Osmolality,Calculated 290 (280-300); Phosphorous 3.5 mg/dL (2.7-4.5); Potassium 3.6 mEq/L (3.5-5.1); Sodium 139 mEq/L (136-145); eGFR For African Americans > 60 (> 60); eGFR For Non-African Americans > 60 (> 60)
[2019-07-07] MEDS: *HR* Heparin 5,000 UNIT/ML VIAL SQ SCH ×2 (04:20→16:55)
[2019-07-07] MEDS ORDERED: Furosemide 20 MG/2 ML VIAL IVP ONE (08:06)
[2019-07-07] MEDS: *HR* HYDROcodone/Acet 5/325 mg TABLET PO PRN ×2 (08:24→21:09)
[2019-07-07] MEDS: DilTIAZem CD (24hr) 240 MG CAP.ER.24H PO SCH (08:24)
[2019-07-07] MEDS: Aspirin 81 MG TAB.CHEW PO SCH (08:24)
[2019-07-07] MEDS ORDERED: DilTIAZem CD (24hr) 180 MG CAP.ER.24H PO SCH (09:00)
[2019-07-07] MEDS ORDERED: Adenosine 90 MG/30 ML MLS IV ONE (09:55)
[2019-07-07] MEDS: Gabapentin 300 MG CAPSULE PO SCH ×3 (10:01→21:09)
[2019-07-08] MEDS: *HR* Heparin 5,000 UNIT/ML VIAL SQ SCH ×2 (05:21→16:48)
[2019-07-08] MEDS: Aspirin 81 MG TAB.CHEW PO SCH (07:30)
[2019-07-08] MEDS: Gabapentin 300 MG CAPSULE PO SCH ×3 (07:30→20:03)
[2019-07-08] MEDS: *HR* HYDROcodone/Acet 5/325 mg TABLET PO PRN ×2 (07:30→16:48)
[2019-07-08] MEDS: DilTIAZem CD (24hr) 240 MG CAP.ER.24H PO SCH (07:30)
[2019-07-09] MEDS: *HR* Heparin 5,000 UNIT/ML VIAL SQ SCH ×2 (05:55→16:32)
[2019-07-09] MEDS: *HR* HYDROcodone/Acet 5/325 mg TABLET PO PRN ×2 (05:58→16:36)
[2019-07-09] MEDS: Aspirin 81 MG TAB.CHEW PO SCH (07:07)
[2019-07-09] MEDS: Gabapentin 300 MG CAPSULE PO SCH ×3 (07:07→20:28)
[2019-07-09] MEDS: DilTIAZem CD (24hr) 240 MG CAP.ER.24H PO SCH (07:07)
[2019-07-09] MEDS ORDERED: Ondansetron 4 MG/2 ML VIAL IVP PRN (13:28)
[2019-07-09] MEDS ORDERED: Ondansetron ODT 4 MG TAB.RAPDIS SL PRN (14:01)
[2019-07-10] MEDS: *HR* Heparin 5,000 UNIT/ML VIAL SQ SCH (05:24)
[2019-07-10] MEDS: *HR* HYDROcodone/Acet 5/325 mg TABLET PO PRN ×2 (07:10→15:32)
[2019-07-10 08:19] VITALS: BP 143/65
[2019-07-10] MEDS: DilTIAZem CD (24hr) 240 MG CAP.ER.24H PO SCH (08:33)
[2019-07-10] MEDS: Gabapentin 300 MG CAPSULE PO SCH (08:33)
[2019-07-10] MEDS: Aspirin 81 MG TAB.CHEW PO SCH (08:34)
== END 2019-07-10 15:41 | disposition home or self-care (01) | DRG 287 ==
LOC: EMEROOARM 13:42 → 2NNU 14:24 → ICNU 14:51 → INTOOBSV 14:51 → 2NNU 15:00 → SUATTDRO 07-07 12:36 → 2ANU 07-10 13:07
PROVIDERS: ADMIT Internal Medicine; ATTEND Internal Medicine

== ENCOUNTER 2020-12-27 02:56 | Observation (INO) ==
[2020-12-27 03:36] LABS: Bacteria,Urine Few per hpf (None-Few); Bilirubin,Urine Negative (Negative); Blood,Urine Negative (Negative); Clarity,Urine Clear (Clear); Color,Urine Yellow (Yellow); Glucose,Urine (UA) Normal (Normal); Hyaline Casts,Urine Few per lpf (None Seen); Ketones,Urine Negative (Negative); Leukocyte Esterase,Urine Moderate (Negative); Mucus,Urine Few per lpf (None-Few); Nitrite,Urine Positive (Negative); PH,Urine 5.5 pH Units (5.0-8.0); Protein,Urine Trace mg/dL (Neg-Trace); RBC,Urine 0-3 per hpf (0-3); Specific Gravity,Urine 1.026 (1.010-1.025); Squamous Epithelial Cell,Urine Moderate per hpf (None-Few); Urobilinogen,Urine Normal (Normal); WBC,Urine 30-50 per hpf (0-3)
[2020-12-27] MEDS ORDERED: *HR* FentaNYL (PF) 100 MCG/2 ML VIAL IVP ONE (03:50)
[2020-12-27 04:09] LABS: Basophils % 0.2 %; Eosinophils # 0.1 K/mcL (0.0-0.6); Eosinophils % 0.9 %; Hemoglobin 12.4 g/dL (11.5-15.4); Immature Granulocytes % 0.7 % (0-4); Lymphocytes # 0.8 K/mcL (0.6-4.6); Lymphocytes % 5.1 %; Mean Corpuscular HGB Conc 31.8 g/dL (31.6-35.5); Mean Corpuscular Hemoglobin 30.2 pg (28.0-33.3); Mean Corpuscular Volume 95.1 fL (83.0-100.0); Mean Platelet Volume 9.4 fL (9.4-12.4); Monocytes # 0.8 K/mcL (0.0-1.3); Monocytes % 5.3 %; Neutrophils # 12.8 K/mcL (1.6-8.9); Platelet Count 337 K/mcL (140-400); Red Cell Distribution Width 13.3 % (11.5-14.5); Segmented Neutrophils % 87.8 %; White Blood Count 14.6 K/mcL (4.3-11.1)
[2020-12-27 04:26] LABS: BUN/Creatinine Ratio 18 (6-26); Blood Urea Nitrogen 14 mg/dL (8-23); Calcium 9.4 mg/dL (8.6-10.3); Carbon Dioxide 32 mEq/L (23-29); Chloride 98 mEq/L (98-107); Glucose 137 mg/dL (70-105); Osmolality,Calculated 289 (280-300); Potassium 4.3 mEq/L (3.5-5.1); Sodium 138 mEq/L (136-145); eGFR For African Americans > 60 (> 60); eGFR For Non-African Americans > 60 (> 60)
[2020-12-27] MEDS ORDERED: cefTRIAXone 1,000 MG in 0.9 % Sodium Chloride Mini Bag 100 ML IVPB ONE (05:54)
[2020-12-27] MEDS ORDERED: 0.9 % Sodium Chloride 500 ML IVC ONE (06:08)
[2020-12-27] MEDS ORDERED: Ondansetron 4 MG/2 ML VIAL IVP PRN (08:10)
[2020-12-27] MEDS ORDERED: Naloxone 0.4 MG/ML INJ IVP PRN (08:10)
[2020-12-27] MEDS: 0.9 % Sodium Chloride 1,000 ML IVC SCH ×2 (10:05→23:26)
[2020-12-27] MEDS: Cyanocobalamin (B-12) 1,000 MCG TABLET PO SCH (10:05)
[2020-12-27] MEDS: Cholecalciferol (D-3) 1,000 UNIT (25MCG) TABLET PO SCH (10:05)
[2020-12-27] MEDS: Aspirin 81 MG TAB.CHEW PO SCH (10:06)
[2020-12-27] MEDS: *HR* HYDROcodone/Acet 5/325 mg TABLET PO PRN (10:52)
[2020-12-27] MEDS ORDERED: *HR* OxyCODONE Immed Rel 5 MG TABLET PO ONE (15:01)
[2020-12-27] MEDS: Gabapentin 300 MG CAPSULE PO SCH (19:35)
[2020-12-28 02:30] LABS: Basophils % 0.3 %; Eosinophils # 0.1 K/mcL (0.0-0.6); Eosinophils % 1.3 %; Hematocrit 32.4 % (35.3-44.9); Hemoglobin 10.2 g/dL (11.5-15.4); Immature Granulocytes % 0.4 % (0-4); Lymphocytes # 0.8 K/mcL (0.6-4.6); Mean Corpuscular HGB Conc 31.5 g/dL (31.6-35.5); Mean Corpuscular Hemoglobin 29.8 pg (28.0-33.3); Mean Corpuscular Volume 94.7 fL (83.0-100.0); Mean Platelet Volume 9.7 fL (9.4-12.4); Monocytes # 0.6 K/mcL (0.0-1.3); Monocytes % 5.9 %; Neutrophils # 9.3 K/mcL (1.6-8.9); Platelet Count 250 K/mcL (140-400); Red Blood Count 3.42 M/mcL (3.82-4.97); Red Cell Distribution Width 13.2 % (11.5-14.5); Segmented Neutrophils % 85.1 %; White Blood Count 10.9 K/mcL (4.3-11.1)
[2020-12-28] MEDS: *HR* HYDROcodone/Acet 5/325 mg TABLET PO PRN ×3 (02:30→22:20)
[2020-12-28 02:48] LABS: BUN/Creatinine Ratio 15 (6-26); Blood Urea Nitrogen 8 mg/dL (8-23); Calcium 8.3 mg/dL (8.6-10.3); Carbon Dioxide 24 mEq/L (23-29); Chloride 100 mEq/L (98-107); Glucose 107 mg/dL (70-105); Magnesium 1.7 mg/dL (1.6-2.6); Osmolality,Calculated 275 (280-300); Potassium 3.8 mEq/L (3.5-5.1); Sodium 133 mEq/L (136-145); eGFR For African Americans > 60 (> 60); eGFR For Non-African Americans > 60 (> 60)
[2020-12-28] MEDS: Aspirin 81 MG TAB.CHEW PO SCH ×2 (09:59→11:18)
[2020-12-28] MEDS: Cholecalciferol (D-3) 1,000 UNIT (25MCG) TABLET PO SCH ×2 (09:59→11:17)
[2020-12-28] MEDS: Gabapentin 300 MG CAPSULE PO SCH ×4 (09:59→22:16)
[2020-12-28] MEDS: DilTIAZem CD (24hr) 240 MG CAP.ER.24H PO SCH ×2 (09:59→11:17)
[2020-12-28] MEDS: cefTRIAXone 1,000 MG in Water for inj. (sterile) 10 ML IVP SCH (10:49)
[2020-12-29 07:49] LABS: Basophils % 0.4 %; Eosinophils # 0.2 K/mcL (0.0-0.6); Eosinophils % 2.1 %; Hematocrit 33.3 % (35.3-44.9); Hemoglobin 10.7 g/dL (11.5-15.4); Immature Granulocytes % 0.3 % (0-4); Lymphocytes # 0.8 K/mcL (0.6-4.6); Lymphocytes % 7.1 %; Mean Corpuscular HGB Conc 32.1 g/dL (31.6-35.5); Mean Corpuscular Hemoglobin 30.1 pg (28.0-33.3); Mean Corpuscular Volume 93.8 fL (83.0-100.0); Mean Platelet Volume 9.8 fL (9.4-12.4); Monocytes # 0.7 K/mcL (0.0-1.3); Monocytes % 6.5 %; Neutrophils # 8.8 K/mcL (1.6-8.9); Platelet Count 252 K/mcL (140-400); Red Blood Count 3.55 M/mcL (3.82-4.97); Red Cell Distribution Width 13.2 % (11.5-14.5); Segmented Neutrophils % 83.6 %; White Blood Count 10.6 K/mcL (4.3-11.1)
[2020-12-29 08:14] LABS: BUN/Creatinine Ratio 19 (6-26); Blood Urea Nitrogen 9 mg/dL (8-23); Carbon Dioxide 30 mEq/L (23-29); Chloride 99 mEq/L (98-107); Glucose 110 mg/dL (70-105); Magnesium 1.8 mg/dL (1.6-2.6); Osmolality,Calculated 279 (280-300); Phosphorous 2.7 mg/dL (2.7-4.5); Potassium 3.7 mEq/L (3.5-5.1); Sodium 135 mEq/L (136-145); eGFR For African Americans > 60 (> 60); eGFR For Non-African Americans > 60 (> 60)
[2020-12-29] MEDS: *HR* HYDROcodone/Acet 5/325 mg TABLET PO PRN ×2 (08:31→20:57)
[2020-12-29] MEDS: DilTIAZem CD (24hr) 240 MG CAP.ER.24H PO SCH (08:43)
[2020-12-29] MEDS: Cyanocobalamin (B-12) 1,000 MCG TABLET PO SCH (08:43)
[2020-12-29] MEDS: Cholecalciferol (D-3) 1,000 UNIT (25MCG) TABLET PO SCH (08:43)
[2020-12-29] MEDS: Aspirin 81 MG TAB.CHEW PO SCH (08:43)
[2020-12-29] MEDS: Gabapentin 300 MG CAPSULE PO SCH ×3 (08:43→20:58)
[2020-12-29] MEDS: cefTRIAXone 1,000 MG in Water for inj. (sterile) 10 ML IVP SCH (08:43)
[2020-12-29 11:13] LABS: Calcium 8.8 mg/dL (8.6-10.3)
[2020-12-29] MEDS: Cefdinir 300 MG CAPSULE PO SCH (20:58)
[2020-12-30 08:04] VITALS: TEMP 98.3
[2020-12-30] MEDS: Cholecalciferol (D-3) 1,000 UNIT (25MCG) TABLET PO SCH (09:07)
[2020-12-30] MEDS: Aspirin 81 MG TAB.CHEW PO SCH (09:07)
[2020-12-30] MEDS: DilTIAZem CD (24hr) 240 MG CAP.ER.24H PO SCH (09:07)
[2020-12-30] MEDS: Cefdinir 300 MG CAPSULE PO SCH ×2 (09:07→20:10)
[2020-12-30] MEDS: *HR* HYDROcodone/Acet 5/325 mg TABLET PO PRN ×2 (09:08→18:43)
[2020-12-30] MEDS: Gabapentin 300 MG CAPSULE PO SCH ×3 (09:08→20:10)
[2020-12-30 12:09] VITALS: O2SAT 91
[2020-12-30 17:25] LABS: Influenza A PCR Negative (Negative); Influenza B PCR Negative (Negative); Resp. Syncytial Virus PCR Negative (Negative); SARS-CoV-2 by PCR (In House) Negative (Negative)
[2020-12-30 18:52] VITALS: BP 150/80; PULSE 101
== END 2020-12-30 22:58 ==
LOC: EMEROOARM 02:56 → 3NENU 02:56 → SUATTDRO 08:22 → 3NENU 09:05
PROVIDERS: ADMIT Family Medicine; ATTEND Internal Medicine

== ENCOUNTER 2021-01-30 07:10 | Inpatient (IN) ==
[2021-01-30 09:42] LABS: Basophils % 0.3 %; Eosinophils # 0.1 K/mcL (0.0-0.6); Eosinophils % 0.9 %; Hematocrit 36.8 % (35.3-44.9); Hemoglobin 11.3 g/dL (11.5-15.4); Immature Granulocytes % 0.4 % (0-4); Lymphocytes # 0.9 K/mcL (0.6-4.6); Lymphocytes % 5.4 %; Mean Corpuscular HGB Conc 30.7 g/dL (31.6-35.5); Mean Corpuscular Hemoglobin 28.4 pg (28.0-33.3); Mean Corpuscular Volume 92.5 fL (83.0-100.0); Mean Platelet Volume 9.2 fL (9.4-12.4); Monocytes # 0.8 K/mcL (0.0-1.3); Platelet Count 466 K/mcL (140-400); Red Blood Count 3.98 M/mcL (3.82-4.97); Red Cell Distribution Width 13.8 % (11.5-14.5); White Blood Count 15.9 K/mcL (4.3-11.1)
[2021-01-30 09:57] LABS: Alanine Aminotransferase 33 Units/L (7-52); Albumin 3.8 g/dL (3.5-5.7); Albumin/Globulin Ratio 1.4 (1.1-2.2); Alkaline Phosphatase 544 Units/L (34-104); Aspartate Amino Transferase 42 Units/L (13-39); Bilirubin,Direct 0.1 mg/dL (0.0-0.2); Bilirubin,Indirect 0.5 mg/dL (0.0-1.0); Bilirubin,Total 0.6 mg/dL (0.3-1.0); Globulin 2.8 g/dL (2.4-3.5); Total Protein 6.6 g/dL (6.4-8.9); Troponin I < 0.03 ng/mL (< 0.04)
[2021-01-30 10:20] LABS: BUN/Creatinine Ratio 17 (6-26); Blood Urea Nitrogen 10 mg/dL (8-23); Calcium 8.9 mg/dL (8.6-10.3); Carbon Dioxide 30 mEq/L (23-29); Chloride 97 mEq/L (98-107); Glucose 113 mg/dL (70-105); Osmolality,Calculated 282 (280-300); Potassium 4.1 mEq/L (3.5-5.1); Sodium 136 mEq/L (136-145); eGFR For African Americans > 60 (> 60); eGFR For Non-African Americans > 60 (> 60)
[2021-01-30] MEDS: *HR* HYDROcodone/Acet 5/325 mg TABLET PO PRN ×4 (11:00→23:14)
[2021-01-30 11:13] LABS: Bacteria,Urine Few per hpf (None-Few); Bilirubin,Urine Negative (Negative); Blood,Urine Negative (Negative); Clarity,Urine Turbid (Clear); Color,Urine Yellow (Yellow); Glucose,Urine (UA) Normal (Normal); Ketones,Urine Negative (Negative); Leukocyte Esterase,Urine Negative (Negative); Mucus,Urine Few per lpf (None-Few); Nitrite,Urine Negative (Negative); PH,Urine 6.5 pH Units (5.0-8.0); Protein,Urine 30 mg/dL (Neg-Trace); Squamous Epithelial Cell,Urine Many per hpf (None-Few)
[2021-01-30] MEDS ORDERED: Naloxone 0.4 MG/ML INJ IVP PRN (12:56)
[2021-01-30] MEDS ORDERED: *HR* HYDROcodone/Acet 5/325 mg TABLET PO PRN (13:24)
[2021-01-30] MEDS: cefTRIAXone 1,000 MG in Water for inj. (sterile) 10 ML IVP SCH (15:45)
[2021-01-30] MEDS ORDERED: *HR* Enoxaparin 40 MG/0.4 ML SYRINGE SQ ONE (16:27)
[2021-01-30 20:18] LABS: Adenovirus Not Detected (Not Detect); Bordetella Pertussis Not Detected (Not Detect); Coronavirus 229E Not Detected (Not Detect); Coronavirus HKU1 Not Detected (Not Detect); Coronavirus NL63 Not Detected (Not Detect); Coronavirus OC43 Not Detected (Not Detect); Human Metapneumovirus Not Detected (Not Detect); Human Rhinovirus/Enterovirus Not Detected (Not Detect); Influenza A Subtype 2009 H1 Not Detected (Not Detect); Influenza B Not Detected (Not Detect); Parainfluenza Virus 1 Not Detected (Not Detect); Parainfluenza Virus 2 Not Detected (Not Detect); Parainfluenza Virus 3 Not Detected (Not Detect); Parainfluenza Virus 4 Not Detected (Not Detect); Respiratory Syncytial Virus Not Detected (Not Detect); SARS-CoV-2 Not Detected (Not Detect)
[2021-01-30 20:19] LABS: Chlamydophila pneumoniae Not Detected (Not Detect); Mycoplasma pneumoniae Not Detected (Not Detect)
[2021-01-31] MEDS: *HR* HYDROcodone/Acet 5/325 mg TABLET PO PRN (03:16)
[2021-01-31 06:22] LABS: Basophils % 0.2 %; Eosinophils % 0.1 %; Hematocrit 28.9 % (35.3-44.9); Immature Granulocytes % 0.4 % (0-4); Lymphocytes # 0.7 K/mcL (0.6-4.6); Lymphocytes % 4.5 %; Mean Corpuscular HGB Conc 31.5 g/dL (31.6-35.5); Mean Corpuscular Hemoglobin 28.3 pg (28.0-33.3); Mean Platelet Volume 8.9 fL (9.4-12.4); Monocytes # 0.8 K/mcL (0.0-1.3); Monocytes % 5.1 %; Neutrophils # 13.6 K/mcL (1.6-8.9); Platelet Count 422 K/mcL (140-400); Red Blood Count 3.21 M/mcL (3.82-4.97); Red Cell Distribution Width 13.9 % (11.5-14.5); Segmented Neutrophils % 89.7 %; White Blood Count 15.2 K/mcL (4.3-11.1)
[2021-01-31 06:40] LABS: Alanine Aminotransferase 27 Units/L (7-52); Albumin 3.3 g/dL (3.5-5.7); Albumin/Globulin Ratio 1.2 (1.1-2.2); Alkaline Phosphatase 446 Units/L (34-104); Aspartate Amino Transferase 28 Units/L (13-39); BUN/Creatinine Ratio 21 (6-26); Bilirubin,Total 0.8 mg/dL (0.3-1.0); Blood Urea Nitrogen 11 mg/dL (8-23); Calcium 8.7 mg/dL (8.6-10.3); Carbon Dioxide 33 mEq/L (23-29); Chloride 95 mEq/L (98-107); Globulin 2.7 g/dL (2.4-3.5); Glucose 129 mg/dL (70-105); Osmolality,Calculated 279 (280-300); Potassium 3.9 mEq/L (3.5-5.1); Sodium 134 mEq/L (136-145); eGFR For African Americans > 60 (> 60); eGFR For Non-African Americans > 60 (> 60)
[2021-01-31] MEDS ORDERED: Lidocaine -MPF 2% 5 ML VIAL ONE (07:19)
[2021-01-31] MEDS ORDERED: *HR* Succinylcholine 200 MG/10 ML VIAL IVP ONE (07:19)
[2021-01-31] MEDS ORDERED: Ondansetron 4 MG/2 ML VIAL ONE (07:19)
[2021-01-31] MEDS ORDERED: *HR* Rocuronium Bromide 50 MG/5 ML VIAL ONE ×2 (07:19→09:39)
[2021-01-31] MEDS ORDERED: Lidocaine HCL 4 ML Topical Solution (Laryng-O-Jet Kit Sterile Pak) TP ONE (07:19)
[2021-01-31] MEDS ORDERED: *HR* Propofol 200 MG/20 ML VIAL IVP ONE (07:26)
[2021-01-31] MEDS ORDERED: *HR* FentaNYL (PF) 100 MCG/2 ML VIAL ONE (07:26)
[2021-01-31] MEDS ORDERED: Albumin Human 5% 12.5 GM/250 ML IV.SOLN ONE (07:32)
[2021-01-31] MEDS ORDERED: CeFAZolin Syr 2,000MG/20 ML 2,000 MG/20 ML SYRINGE IVPB ONE (07:32)
[2021-01-31] MEDS ORDERED: Famotidine 20 MG/2 ML VIAL IVP ONE (07:32)
[2021-01-31] MEDS ORDERED: *HR* Vasopressin 20 UNIT/ML VIAL ONE (07:33)
[2021-01-31] MEDS ORDERED: Ropivacaine/PF 0.5% 30 ML VIAL ONE (07:36)
[2021-01-31] MEDS ORDERED: Ringers Solution, Lactated 1,000 ML IVC SCH (07:45)
[2021-01-31] MEDS ORDERED: *HR* Labetalol 20 MG/4 ML SYRINGE IVP PRN ×2 (07:57→13:55)
[2021-01-31] MEDS ORDERED: Ondansetron 4 MG/2 ML VIAL IVP PRN ×2 (07:57→13:55)
[2021-01-31 08:04] LABS: Hemoglobin 9.1 g/dL (11.5-15.4)
[2021-01-31] MEDS ORDERED: *HR* Phenylephrine 10 MG/ML VIAL ONE (08:10)
[2021-01-31] MEDS ORDERED: *HR* HYDROMORPHONE 2 MG/ML VIAL ONE (10:53)
[2021-01-31] MEDS ORDERED: Sugammadex Sodium 200 MG/2 ML VIAL IV ONE (10:58)
[2021-01-31] MEDS ORDERED: EPINEPHrine 1 MG/ML VIAL ONE (11:27)
[2021-01-31] MEDS ORDERED: Tranexamic Acid 1,000 MG/10 ML VIAL ONE (11:29)
[2021-01-31] MEDS ORDERED: Naloxone 0.4 MG/ML INJ IVP PRN (13:55)
[2021-01-31] MEDS ORDERED: DilTIAZem SR (12hr) 60 MG CAP.ER.12H PO ONE (15:05)
[2021-01-31] MEDS: Gabapentin 300 MG CAPSULE PO SCH ×2 (17:03→21:05)
[2021-01-31] MEDS: Cyanocobalamin (B-12) 1,000 MCG TABLET PO SCH (17:04)
[2021-01-31] MEDS: Ringers Solution, Lactated 1,000 ML IVC SCH (17:06)
[2021-01-31] MEDS: *HR* HYDROcodone/Acet 5/325 mg TABLET PO SCH ×2 (17:42→21:04)
[2021-01-31] MEDS: cefTRIAXone 1,000 MG in Water for inj. (sterile) 10 ML IVP SCH (19:32)
[2021-01-31] MEDS: ceFAZolin 2,000 MG in 0.9 % Sodium Chloride 100 ML IVPB SCH (21:31)
[2021-02-01] MEDS: ceFAZolin 2,000 MG in 0.9 % Sodium Chloride 100 ML IVPB SCH (04:57)
[2021-02-01 06:31] LABS: Basophils % 0.1 %; Hematocrit 24.6 % (35.3-44.9); Hemoglobin 7.7 g/dL (11.5-15.4); Immature Granulocytes % 0.5 % (0-4); Lymphocytes # 0.6 K/mcL (0.6-4.6); Lymphocytes % 4.6 %; Mean Corpuscular HGB Conc 31.3 g/dL (31.6-35.5); Mean Corpuscular Hemoglobin 28.7 pg (28.0-33.3); Mean Corpuscular Volume 91.8 fL (83.0-100.0); Mean Platelet Volume 8.9 fL (9.4-12.4); Monocytes # 0.8 K/mcL (0.0-1.3); Monocytes % 6.5 %; Neutrophils # 10.9 K/mcL (1.6-8.9); Platelet Count 347 K/mcL (140-400); Red Blood Count 2.68 M/mcL (3.82-4.97); Segmented Neutrophils % 88.3 %; White Blood Count 12.3 K/mcL (4.3-11.1)
[2021-02-01 06:44] LABS: BUN/Creatinine Ratio 19 (6-26); Blood Urea Nitrogen 10 mg/dL (8-23); Calcium 8.3 mg/dL (8.6-10.3); Carbon Dioxide 32 mEq/L (23-29); Chloride 99 mEq/L (98-107); Glucose 148 mg/dL (70-105); Osmolality,Calculated 284 (280-300); Potassium 4.2 mEq/L (3.5-5.1); Sodium 136 mEq/L (136-145); eGFR For African Americans > 60 (> 60); eGFR For Non-African Americans > 60 (> 60)
[2021-02-01] MEDS: Furosemide 40 MG TABLET PO SCH (08:25)
[2021-02-01] MEDS: *HR* HYDROcodone/Acet 5/325 mg TABLET PO SCH ×4 (08:25→22:10)
[2021-02-01] MEDS: Cholecalciferol (D-3) 1,000 UNIT (25MCG) TABLET PO SCH (08:25)
[2021-02-01] MEDS: Gabapentin 300 MG CAPSULE PO SCH ×3 (08:26→22:10)
[2021-02-01] MEDS: DilTIAZem CD (24hr) 240 MG CAP.ER.24H PO SCH (08:27)
[2021-02-01] MEDS: cefTRIAXone 1,000 MG in Water for inj. (sterile) 10 ML IVP SCH (08:27)
[2021-02-01] MEDS ORDERED: *HR* Enoxaparin 30 MG/0.3 ML SYRINGE SQ SCH (09:00)
[2021-02-01 13:57] LABS: Hematocrit 25.9 % (35.3-44.9)
[2021-02-02] MEDS: Ringers Solution, Lactated 1,000 ML IVC SCH ×2 (02:53→15:21)
[2021-02-02] MEDS: *HR* HYDROcodone/Acet 5/325 mg TABLET PO PRN (04:16)
[2021-02-02 05:35] LABS: Basophils % 0.1 %; Eosinophils % 0.1 %; Hematocrit 22.9 % (35.3-44.9); Hemoglobin 7.1 g/dL (11.5-15.4); Immature Granulocytes % 0.5 % (0-4); Lymphocytes # 0.9 K/mcL (0.6-4.6); Lymphocytes % 9.7 %; Mean Corpuscular Hemoglobin 28.2 pg (28.0-33.3); Mean Corpuscular Volume 90.9 fL (83.0-100.0); Monocytes # 0.7 K/mcL (0.0-1.3); Neutrophils # 7.9 K/mcL (1.6-8.9); Platelet Count 318 K/mcL (140-400); Red Blood Count 2.52 M/mcL (3.82-4.97); Red Cell Distribution Width 14.2 % (11.5-14.5); Segmented Neutrophils % 82.6 %; White Blood Count 9.6 K/mcL (4.3-11.1)
[2021-02-02 05:53] LABS: BUN/Creatinine Ratio 22 (6-26); Blood Urea Nitrogen 10 mg/dL (8-23); Calcium 8.2 mg/dL (8.6-10.3); Carbon Dioxide 35 mEq/L (23-29); Chloride 98 mEq/L (98-107); Glucose 115 mg/dL (70-105); Osmolality,Calculated 282 (280-300); Potassium 3.7 mEq/L (3.5-5.1); Sodium 136 mEq/L (136-145); eGFR For African Americans > 60 (> 60); eGFR For Non-African Americans > 60 (> 60)
[2021-02-02] MEDS: *HR* HYDROcodone/Acet 5/325 mg TABLET PO SCH ×4 (09:36→22:40)
[2021-02-02] MEDS: Cholecalciferol (D-3) 1,000 UNIT (25MCG) TABLET PO SCH (09:37)
[2021-02-02] MEDS: cefTRIAXone 1,000 MG in Water for inj. (sterile) 10 ML IVP SCH (09:37)
[2021-02-02] MEDS: DilTIAZem CD (24hr) 240 MG CAP.ER.24H PO SCH (09:37)
[2021-02-02] MEDS: Furosemide 40 MG TABLET PO SCH (09:37)
[2021-02-02] MEDS: Gabapentin 300 MG CAPSULE PO SCH ×3 (09:37→19:56)
[2021-02-02] MEDS ORDERED: *HR* Enoxaparin 30 MG/0.3 ML SYRINGE IVP SCH (10:15)
[2021-02-02] MEDS ORDERED: *HR* HYDROcodone/Acet 10/325 mg TABLET PO PRN (10:45)
[2021-02-02 12:58] LABS: Hematocrit 24.4 % (35.3-44.9); Hemoglobin 7.5 g/dL (11.5-15.4)
[2021-02-02] MEDS: *HR* Enoxaparin 30 MG/0.3 ML SYRINGE SQ SCH (15:21)
[2021-02-02] MEDS: Cyanocobalamin (B-12) 1,000 MCG TABLET PO SCH (15:21)
[2021-02-03] MEDS: *HR* HYDROcodone/Acet 5/325 mg TABLET PO PRN (05:45)
[2021-02-03 07:51] LABS: Basophils % 0.3 %; Eosinophils # 0.1 K/mcL (0.0-0.6); Eosinophils % 1.1 %; Hematocrit 25.4 % (35.3-44.9); Hemoglobin 7.9 g/dL (11.5-15.4); Immature Granulocytes % 0.5 % (0-4); Lymphocytes # 1.3 K/mcL (0.6-4.6); Lymphocytes % 14.9 %; Mean Corpuscular HGB Conc 31.1 g/dL (31.6-35.5); Mean Corpuscular Hemoglobin 28.6 pg (28.0-33.3); Mean Platelet Volume 9.1 fL (9.4-12.4); Monocytes # 0.7 K/mcL (0.0-1.3); Monocytes % 7.7 %; Neutrophils # 6.7 K/mcL (1.6-8.9); Platelet Count 366 K/mcL (140-400); Red Blood Count 2.76 M/mcL (3.82-4.97); Red Cell Distribution Width 14.2 % (11.5-14.5); Segmented Neutrophils % 75.5 %; White Blood Count 8.8 K/mcL (4.3-11.1)
[2021-02-03 08:24] LABS: BUN/Creatinine Ratio 23 (6-26); Blood Urea Nitrogen 10 mg/dL (8-23); Calcium 8.4 mg/dL (8.6-10.3); Carbon Dioxide 31 mEq/L (23-29); Chloride 97 mEq/L (98-107); Glucose 94 mg/dL (70-105); Osmolality,Calculated 281 (280-300); Potassium 3.9 mEq/L (3.5-5.1); Sodium 136 mEq/L (136-145); eGFR For African Americans > 60 (> 60); eGFR For Non-African Americans > 60 (> 60)
[2021-02-03] MEDS: DilTIAZem CD (24hr) 240 MG CAP.ER.24H PO SCH (09:37)
[2021-02-03] MEDS: *HR* HYDROcodone/Acet 5/325 mg TABLET PO SCH ×4 (09:37→21:13)
[2021-02-03] MEDS: cefTRIAXone 1,000 MG in Water for inj. (sterile) 10 ML IVP SCH (09:38)
[2021-02-03] MEDS: Gabapentin 300 MG CAPSULE PO SCH ×3 (09:38→19:24)
[2021-02-03] MEDS: *HR* Enoxaparin 30 MG/0.3 ML SYRINGE SQ SCH ×2 (09:38→19:24)
[2021-02-03] MEDS: Cholecalciferol (D-3) 1,000 UNIT (25MCG) TABLET PO SCH (09:38)
[2021-02-03] MEDS: Furosemide 40 MG TABLET PO SCH (09:38)
[2021-02-04] MEDS: *HR* HYDROcodone/Acet 5/325 mg TABLET PO PRN ×3 (02:50→11:09)
[2021-02-04] MEDS: *HR* HYDROcodone/Acet 5/325 mg TABLET PO SCH ×4 (07:08→21:05)
[2021-02-04] MEDS: Gabapentin 300 MG CAPSULE PO SCH ×3 (07:14→19:25)
[2021-02-04] MEDS: Cholecalciferol (D-3) 1,000 UNIT (25MCG) TABLET PO SCH (07:14)
[2021-02-04] MEDS: Furosemide 40 MG TABLET PO SCH (07:14)
[2021-02-04] MEDS: DilTIAZem CD (24hr) 240 MG CAP.ER.24H PO SCH (07:14)
[2021-02-04] MEDS: cefTRIAXone 1,000 MG in Water for inj. (sterile) 10 ML IVP SCH (07:15)
[2021-02-04] MEDS: *HR* Enoxaparin 30 MG/0.3 ML SYRINGE SQ SCH ×2 (07:15→19:24)
[2021-02-04] MEDS ORDERED: Acetaminophen 325 MG TABLET PO PRN (14:25)
[2021-02-04] MEDS ORDERED: Ketorolac 15 MG/ML VIAL IVP ONE (14:30)
[2021-02-04] MEDS: Cyanocobalamin (B-12) 1,000 MCG TABLET PO SCH (14:47)
[2021-02-05] MEDS: *HR* HYDROcodone/Acet 5/325 mg TABLET PO PRN (03:58)
[2021-02-05 05:52] LABS: Basophils % 0.3 %; Eosinophils # 0.2 K/mcL (0.0-0.6); Eosinophils % 2.1 %; Hematocrit 26.2 % (35.3-44.9); Hemoglobin 7.9 g/dL (11.5-15.4); Immature Granulocytes % 0.8 % (0-4); Lymphocytes # 1.1 K/mcL (0.6-4.6); Lymphocytes % 11.8 %; Mean Corpuscular HGB Conc 30.2 g/dL (31.6-35.5); Mean Corpuscular Hemoglobin 27.8 pg (28.0-33.3); Mean Corpuscular Volume 92.3 fL (83.0-100.0); Monocytes # 0.7 K/mcL (0.0-1.3); Monocytes % 7.1 %; Neutrophils # 7.6 K/mcL (1.6-8.9); Platelet Count 410 K/mcL (140-400); Red Blood Count 2.84 M/mcL (3.82-4.97); Red Cell Distribution Width 14.6 % (11.5-14.5); Segmented Neutrophils % 77.9 %; White Blood Count 9.7 K/mcL (4.3-11.1)
[2021-02-05 06:13] LABS: BUN/Creatinine Ratio 19 (6-26); Blood Urea Nitrogen 10 mg/dL (8-23); Calcium 8.6 mg/dL (8.6-10.3); Carbon Dioxide 35 mEq/L (23-29); Chloride 93 mEq/L (98-107); Glucose 111 mg/dL (70-105); Osmolality,Calculated 278 (280-300); Potassium 3.9 mEq/L (3.5-5.1); Sodium 134 mEq/L (136-145); eGFR For African Americans > 60 (> 60); eGFR For Non-African Americans > 60 (> 60)
[2021-02-05] MEDS: Gabapentin 300 MG CAPSULE PO SCH ×3 (07:34→20:29)
[2021-02-05] MEDS: DilTIAZem CD (24hr) 240 MG CAP.ER.24H PO SCH (07:35)
[2021-02-05] MEDS: *HR* Enoxaparin 30 MG/0.3 ML SYRINGE SQ SCH ×2 (07:35→20:30)
[2021-02-05] MEDS: Cholecalciferol (D-3) 1,000 UNIT (25MCG) TABLET PO SCH (07:35)
[2021-02-05] MEDS: Furosemide 40 MG TABLET PO SCH (07:35)
[2021-02-05] MEDS: *HR* HYDROcodone/Acet 5/325 mg TABLET PO SCH (07:36)
[2021-02-05] MEDS: cefTRIAXone 1,000 MG in Water for inj. (sterile) 10 ML IVP SCH (07:41)
[2021-02-05] MEDS: *HR* HYDROcodone/Acet 7.5/325 mg TABLET PO SCH ×3 (13:28→20:29)
[2021-02-05] MEDS ORDERED: polyethylene glycoL 3350 17 GM POWD.PACK PO PRN (22:18)
[2021-02-06] MEDS: *HR* HYDROcodone/Acet 7.5/325 mg TABLET PO SCH ×4 (09:18→19:59)
[2021-02-06] MEDS: Gabapentin 300 MG CAPSULE PO SCH ×3 (09:19→19:59)
[2021-02-06] MEDS: Cholecalciferol (D-3) 1,000 UNIT (25MCG) TABLET PO SCH (09:19)
[2021-02-06] MEDS: Furosemide 40 MG TABLET PO SCH (09:19)
[2021-02-06] MEDS: cefTRIAXone 1,000 MG in Water for inj. (sterile) 10 ML IVP SCH (09:20)
[2021-02-06] MEDS: DilTIAZem CD (24hr) 240 MG CAP.ER.24H PO SCH (09:20)
[2021-02-06] MEDS: *HR* Enoxaparin 30 MG/0.3 ML SYRINGE SQ SCH ×2 (09:23→19:59)
[2021-02-06] MEDS: *HR* HYDROcodone/Acet 5/325 mg TABLET PO PRN (14:00)
[2021-02-06] MEDS: Cyanocobalamin (B-12) 1,000 MCG TABLET PO SCH (14:40)
[2021-02-07] MEDS: *HR* HYDROcodone/Acet 5/325 mg TABLET PO PRN (02:58)
[2021-02-07] MEDS: *HR* HYDROcodone/Acet 7.5/325 mg TABLET PO SCH ×4 (09:00→21:54)
[2021-02-07] MEDS: Furosemide 40 MG TABLET PO SCH (09:00)
[2021-02-07] MEDS: Gabapentin 300 MG CAPSULE PO SCH ×3 (09:00→21:53)
[2021-02-07] MEDS: Cholecalciferol (D-3) 1,000 UNIT (25MCG) TABLET PO SCH (09:00)
[2021-02-07] MEDS: DilTIAZem CD (24hr) 240 MG CAP.ER.24H PO SCH (09:00)
[2021-02-07] MEDS: *HR* Enoxaparin 30 MG/0.3 ML SYRINGE SQ SCH ×2 (09:01→21:53)
[2021-02-07] MEDS: QUEtiapine Fumarate 25 MG TABLET PO PRN (21:56)
[2021-02-08] MEDS: Furosemide 40 MG TABLET PO SCH (09:00)
[2021-02-08] MEDS: Cholecalciferol (D-3) 1,000 UNIT (25MCG) TABLET PO SCH (09:00)
[2021-02-08] MEDS: DilTIAZem CD (24hr) 240 MG CAP.ER.24H PO SCH (09:00)
[2021-02-08] MEDS: *HR* HYDROcodone/Acet 7.5/325 mg TABLET PO SCH ×5 (09:00→21:02)
[2021-02-08] MEDS: Gabapentin 300 MG CAPSULE PO SCH ×3 (09:00→20:10)
[2021-02-08] MEDS: *HR* Enoxaparin 30 MG/0.3 ML SYRINGE SQ SCH ×2 (09:01→20:10)
[2021-02-08] MEDS: Cyanocobalamin (B-12) 1,000 MCG TABLET PO SCH (16:59)
[2021-02-08] MEDS: QUEtiapine Fumarate 25 MG TABLET PO PRN (20:11)
[2021-02-09] MEDS: Furosemide 40 MG TABLET PO SCH (08:00)
[2021-02-09] MEDS: Gabapentin 300 MG CAPSULE PO SCH ×3 (08:00→20:18)
[2021-02-09] MEDS: *HR* HYDROcodone/Acet 7.5/325 mg TABLET PO SCH ×4 (08:00→20:18)
[2021-02-09] MEDS: Cholecalciferol (D-3) 1,000 UNIT (25MCG) TABLET PO SCH (08:00)
[2021-02-09] MEDS: DilTIAZem CD (24hr) 240 MG CAP.ER.24H PO SCH (08:00)
[2021-02-09] MEDS: *HR* Enoxaparin 30 MG/0.3 ML SYRINGE SQ SCH ×2 (08:01→20:19)
[2021-02-10] MEDS: *HR* HYDROcodone/Acet 5/325 mg TABLET PO PRN (03:36)
[2021-02-10 05:44] LABS: Basophils % 0.3 %; Eosinophils # 0.1 K/mcL (0.0-0.6); Eosinophils % 2.2 %; Hematocrit 25.5 % (35.3-44.9); Hemoglobin 7.8 g/dL (11.5-15.4); Immature Granulocytes % 1.2 % (0-4); Lymphocytes # 0.9 K/mcL (0.6-4.6); Lymphocytes % 13.1 %; Mean Corpuscular HGB Conc 30.6 g/dL (31.6-35.5); Mean Corpuscular Hemoglobin 28.2 pg (28.0-33.3); Mean Corpuscular Volume 92.1 fL (83.0-100.0); Mean Platelet Volume 8.5 fL (9.4-12.4); Monocytes # 0.6 K/mcL (0.0-1.3); Monocytes % 8.9 %; Neutrophils # 4.8 K/mcL (1.6-8.9); Platelet Count 341 K/mcL (140-400); Red Blood Count 2.77 M/mcL (3.82-4.97); Red Cell Distribution Width 15.2 % (11.5-14.5); Segmented Neutrophils % 74.3 %; White Blood Count 6.5 K/mcL (4.3-11.1)
[2021-02-10 06:57] LABS: BUN/Creatinine Ratio 16 (6-26); Blood Urea Nitrogen 7 mg/dL (8-23); Calcium 8.8 mg/dL (8.6-10.3); Carbon Dioxide 35 mEq/L (23-29); Chloride 95 mEq/L (98-107); Glucose 106 mg/dL (70-105); Osmolality,Calculated 280 (280-300); Sodium 136 mEq/L (136-145); eGFR For African Americans > 60 (> 60); eGFR For Non-African Americans > 60 (> 60)
[2021-02-10] MEDS: *HR* HYDROcodone/Acet 7.5/325 mg TABLET PO SCH ×4 (08:49→20:19)
[2021-02-10] MEDS: *HR* Enoxaparin 30 MG/0.3 ML SYRINGE SQ SCH ×2 (08:49→20:18)
[2021-02-10] MEDS: Furosemide 40 MG TABLET PO SCH (08:50)
[2021-02-10] MEDS: Gabapentin 300 MG CAPSULE PO SCH ×3 (08:50→20:19)
[2021-02-10] MEDS: Cholecalciferol (D-3) 1,000 UNIT (25MCG) TABLET PO SCH (08:50)
[2021-02-10] MEDS: DilTIAZem CD (24hr) 240 MG CAP.ER.24H PO SCH (08:50)
[2021-02-10] MEDS: Cyanocobalamin (B-12) 1,000 MCG TABLET PO SCH (14:48)
[2021-02-11] MEDS: DilTIAZem CD (24hr) 240 MG CAP.ER.24H PO SCH (07:22)
[2021-02-11] MEDS: Gabapentin 300 MG CAPSULE PO SCH ×3 (07:22→19:36)
[2021-02-11] MEDS: Furosemide 40 MG TABLET PO SCH (07:22)
[2021-02-11] MEDS: *HR* HYDROcodone/Acet 7.5/325 mg TABLET PO SCH ×4 (07:23→19:36)
[2021-02-11] MEDS: *HR* Enoxaparin 30 MG/0.3 ML SYRINGE SQ SCH ×2 (07:23→19:36)
[2021-02-11] MEDS: Cholecalciferol (D-3) 1,000 UNIT (25MCG) TABLET PO SCH (07:23)
[2021-02-12] MEDS: *HR* HYDROcodone/Acet 5/325 mg TABLET PO PRN ×2 (01:28→16:23)
[2021-02-12] MEDS: *HR* Enoxaparin 30 MG/0.3 ML SYRINGE SQ SCH ×2 (08:23→21:42)
[2021-02-12] MEDS: *HR* HYDROcodone/Acet 7.5/325 mg TABLET PO SCH ×4 (08:24→21:46)
[2021-02-12] MEDS: Cholecalciferol (D-3) 1,000 UNIT (25MCG) TABLET PO SCH (08:24)
[2021-02-12] MEDS: Gabapentin 300 MG CAPSULE PO SCH ×3 (08:24→21:43)
[2021-02-12] MEDS: Furosemide 40 MG TABLET PO SCH (08:24)
[2021-02-12] MEDS: DilTIAZem CD (24hr) 240 MG CAP.ER.24H PO SCH (08:24)
[2021-02-12] MEDS: Cyanocobalamin (B-12) 1,000 MCG TABLET PO SCH (16:23)
[2021-02-12] MEDS: QUEtiapine Fumarate 25 MG TABLET PO PRN (21:43)
[2021-02-13 08:58] LABS: Hematocrit 26.8 % (35.3-44.9); Mean Corpuscular HGB Conc 29.9 g/dL (31.6-35.5); Mean Corpuscular Hemoglobin 27.8 pg (28.0-33.3); Mean Corpuscular Volume 93.1 fL (83.0-100.0); Mean Platelet Volume 8.2 fL (9.4-12.4); Platelet Count 354 K/mcL (140-400); Red Blood Count 2.88 M/mcL (3.82-4.97); Red Cell Distribution Width 15.5 % (11.5-14.5)
[2021-02-13] MEDS: Gabapentin 300 MG CAPSULE PO SCH ×3 (09:07→21:45)
[2021-02-13] MEDS: DilTIAZem CD (24hr) 240 MG CAP.ER.24H PO SCH (09:07)
[2021-02-13] MEDS: Cholecalciferol (D-3) 1,000 UNIT (25MCG) TABLET PO SCH (09:07)
[2021-02-13] MEDS: *HR* HYDROcodone/Acet 7.5/325 mg TABLET PO SCH ×4 (09:07→21:46)
[2021-02-13] MEDS: Furosemide 40 MG TABLET PO SCH (09:07)
[2021-02-13] MEDS: *HR* Enoxaparin 30 MG/0.3 ML SYRINGE SQ SCH ×2 (09:07→21:45)
[2021-02-13 09:16] LABS: BUN/Creatinine Ratio 16 (6-26); Blood Urea Nitrogen 8 mg/dL (8-23); Carbon Dioxide 35 mEq/L (23-29); Chloride 95 mEq/L (98-107); Glucose 112 mg/dL (70-105); Osmolality,Calculated 281 (280-300); Potassium 3.9 mEq/L (3.5-5.1); Sodium 136 mEq/L (136-145); eGFR For African Americans > 60 (> 60); eGFR For Non-African Americans > 60 (> 60)
[2021-02-14] MEDS: *HR* HYDROcodone/Acet 5/325 mg TABLET PO PRN (05:34)
[2021-02-14] MEDS: Furosemide 40 MG TABLET PO SCH (10:16)
[2021-02-14] MEDS: Gabapentin 300 MG CAPSULE PO SCH ×3 (10:16→20:37)
[2021-02-14] MEDS: Cholecalciferol (D-3) 1,000 UNIT (25MCG) TABLET PO SCH (10:16)
[2021-02-14] MEDS: *HR* Enoxaparin 30 MG/0.3 ML SYRINGE SQ SCH ×2 (10:16→20:37)
[2021-02-14] MEDS: *HR* HYDROcodone/Acet 7.5/325 mg TABLET PO SCH ×4 (10:16→20:37)
[2021-02-14] MEDS: DilTIAZem CD (24hr) 240 MG CAP.ER.24H PO SCH (10:16)
[2021-02-14] MEDS: Cyanocobalamin (B-12) 1,000 MCG TABLET PO SCH (13:59)
[2021-02-15] MEDS: *HR* HYDROcodone/Acet 5/325 mg TABLET PO PRN (06:58)
[2021-02-15] MEDS: *HR* HYDROcodone/Acet 7.5/325 mg TABLET PO SCH ×4 (09:29→20:13)
[2021-02-15] MEDS: DilTIAZem CD (24hr) 240 MG CAP.ER.24H PO SCH (09:29)
[2021-02-15] MEDS: Cholecalciferol (D-3) 1,000 UNIT (25MCG) TABLET PO SCH (09:29)
[2021-02-15] MEDS: Gabapentin 300 MG CAPSULE PO SCH ×3 (09:29→20:14)
[2021-02-15] MEDS: Furosemide 40 MG TABLET PO SCH (09:29)
[2021-02-15] MEDS: *HR* Enoxaparin 30 MG/0.3 ML SYRINGE SQ SCH ×2 (09:30→20:13)
[2021-02-16] MEDS: Cholecalciferol (D-3) 1,000 UNIT (25MCG) TABLET PO SCH (08:29)
[2021-02-16] MEDS: *HR* Enoxaparin 30 MG/0.3 ML SYRINGE SQ SCH ×3 (08:29→20:58)
[2021-02-16] MEDS: DilTIAZem CD (24hr) 240 MG CAP.ER.24H PO SCH (08:30)
[2021-02-16] MEDS: Gabapentin 300 MG CAPSULE PO SCH ×3 (08:30→20:55)
[2021-02-16] MEDS: Furosemide 40 MG TABLET PO SCH (08:31)
[2021-02-16] MEDS: *HR* HYDROcodone/Acet 7.5/325 mg TABLET PO SCH ×4 (08:31→20:55)
[2021-02-16] MEDS: Cyanocobalamin (B-12) 1,000 MCG TABLET PO SCH (15:04)
[2021-02-16] MEDS: QUEtiapine Fumarate 25 MG TABLET PO PRN (20:54)
[2021-02-17] MEDS: Cholecalciferol (D-3) 1,000 UNIT (25MCG) TABLET PO SCH (07:21)
[2021-02-17] MEDS: *HR* Enoxaparin 30 MG/0.3 ML SYRINGE SQ SCH ×2 (07:21→20:47)
[2021-02-17] MEDS: DilTIAZem CD (24hr) 240 MG CAP.ER.24H PO SCH (07:22)
[2021-02-17] MEDS: Furosemide 40 MG TABLET PO SCH (07:22)
[2021-02-17] MEDS: *HR* HYDROcodone/Acet 7.5/325 mg TABLET PO SCH ×4 (07:22→20:48)
[2021-02-17] MEDS: Gabapentin 300 MG CAPSULE PO SCH ×3 (07:22→20:48)
[2021-02-17] MEDS: QUEtiapine Fumarate 25 MG TABLET PO PRN (20:48)
[2021-02-18] MEDS: *HR* HYDROcodone/Acet 5/325 mg TABLET PO PRN ×2 (05:27→17:47)
[2021-02-18] MEDS: Furosemide 40 MG TABLET PO SCH (08:32)
[2021-02-18] MEDS: *HR* HYDROcodone/Acet 7.5/325 mg TABLET PO SCH ×4 (08:33→20:48)
[2021-02-18] MEDS: Gabapentin 300 MG CAPSULE PO SCH ×3 (08:33→20:48)
[2021-02-18] MEDS: Cholecalciferol (D-3) 1,000 UNIT (25MCG) TABLET PO SCH (08:33)
[2021-02-18] MEDS: DilTIAZem CD (24hr) 240 MG CAP.ER.24H PO SCH (08:34)
[2021-02-18] MEDS: *HR* Enoxaparin 30 MG/0.3 ML SYRINGE SQ SCH ×2 (08:34→20:49)
[2021-02-18] MEDS: Cyanocobalamin (B-12) 1,000 MCG TABLET PO SCH (16:11)
[2021-02-18] MEDS: QUEtiapine Fumarate 25 MG TABLET PO PRN (20:48)
[2021-02-19] MEDS: *HR* HYDROcodone/Acet 7.5/325 mg TABLET PO SCH ×4 (09:15→20:58)
[2021-02-19] MEDS: Cholecalciferol (D-3) 1,000 UNIT (25MCG) TABLET PO SCH (09:15)
[2021-02-19] MEDS: *HR* Enoxaparin 30 MG/0.3 ML SYRINGE SQ SCH ×2 (09:15→20:57)
[2021-02-19] MEDS: DilTIAZem CD (24hr) 240 MG CAP.ER.24H PO SCH (09:15)
[2021-02-19] MEDS: Gabapentin 300 MG CAPSULE PO SCH ×3 (09:15→20:58)
[2021-02-19] MEDS: Furosemide 40 MG TABLET PO SCH (09:15)
[2021-02-20] MEDS: *HR* HYDROcodone/Acet 5/325 mg TABLET PO PRN (04:31)
[2021-02-20 05:46] LABS: Basophils % 0.3 %; Eosinophils # 0.2 K/mcL (0.0-0.6); Eosinophils % 2.7 %; Hematocrit 29.7 % (35.3-44.9); Hemoglobin 8.8 g/dL (11.5-15.4); Immature Granulocytes % 0.3 % (0-4); Lymphocytes # 1.2 K/mcL (0.6-4.6); Lymphocytes % 19.3 %; Mean Corpuscular HGB Conc 29.6 g/dL (31.6-35.5); Mean Corpuscular Hemoglobin 27.5 pg (28.0-33.3); Mean Corpuscular Volume 92.8 fL (83.0-100.0); Monocytes # 0.5 K/mcL (0.0-1.3); Monocytes % 7.4 %; Neutrophils # 4.4 K/mcL (1.6-8.9); Platelet Count 372 K/mcL (140-400); Red Cell Distribution Width 14.8 % (11.5-14.5); White Blood Count 6.2 K/mcL (4.3-11.1)
[2021-02-20 06:08] LABS: BUN/Creatinine Ratio 19 (6-26); Blood Urea Nitrogen 10 mg/dL (8-23); Calcium 8.9 mg/dL (8.6-10.3); Carbon Dioxide 32 mEq/L (23-29); Chloride 95 mEq/L (98-107); Glucose 99 mg/dL (70-105); Magnesium 1.9 mg/dL (1.6-2.6); Osmolality,Calculated 279 (280-300); Phosphorous 3.6 mg/dL (2.7-4.5); Potassium 3.6 mEq/L (3.5-5.1); Sodium 135 mEq/L (136-145); eGFR For African Americans > 60 (> 60); eGFR For Non-African Americans > 60 (> 60)
[2021-02-20] MEDS: *HR* Enoxaparin 30 MG/0.3 ML SYRINGE SQ SCH ×2 (10:14→22:14)
[2021-02-20] MEDS: Cholecalciferol (D-3) 1,000 UNIT (25MCG) TABLET PO SCH (10:33)
[2021-02-20] MEDS: Gabapentin 300 MG CAPSULE PO SCH ×3 (10:33→22:14)
[2021-02-20] MEDS: *HR* HYDROcodone/Acet 7.5/325 mg TABLET PO SCH ×4 (10:33→22:14)
[2021-02-20] MEDS: DilTIAZem CD (24hr) 240 MG CAP.ER.24H PO SCH (10:33)
[2021-02-20] MEDS: Furosemide 40 MG TABLET PO SCH (10:34)
[2021-02-20] MEDS: Cyanocobalamin (B-12) 1,000 MCG TABLET PO SCH (14:54)
[2021-02-20] MEDS: QUEtiapine Fumarate 25 MG TABLET PO PRN (22:15)
[2021-02-21] MEDS: Furosemide 40 MG TABLET PO SCH (08:27)
[2021-02-21] MEDS: *HR* HYDROcodone/Acet 7.5/325 mg TABLET PO SCH ×4 (08:27→21:16)
[2021-02-21] MEDS: DilTIAZem CD (24hr) 240 MG CAP.ER.24H PO SCH (08:27)
[2021-02-21] MEDS: Gabapentin 300 MG CAPSULE PO SCH ×3 (08:28→21:17)
[2021-02-21] MEDS: Cholecalciferol (D-3) 1,000 UNIT (25MCG) TABLET PO SCH (08:28)
[2021-02-21] MEDS: *HR* Enoxaparin 30 MG/0.3 ML SYRINGE SQ SCH ×2 (08:28→21:18)
[2021-02-21] MEDS ORDERED: Ondansetron 4 MG/2 ML VIAL IVP ONE (09:43)
[2021-02-21] MEDS: Simethicone 80 MG TAB.CHEW PO PRN ×2 (10:05→17:34)
[2021-02-22] MEDS: *HR* HYDROcodone/Acet 5/325 mg TABLET PO PRN (05:39)
[2021-02-22] MEDS: Gabapentin 300 MG CAPSULE PO SCH ×3 (07:58→21:04)
[2021-02-22] MEDS: DilTIAZem CD (24hr) 240 MG CAP.ER.24H PO SCH (07:58)
[2021-02-22] MEDS: Cholecalciferol (D-3) 1,000 UNIT (25MCG) TABLET PO SCH (07:58)
[2021-02-22] MEDS: *HR* HYDROcodone/Acet 7.5/325 mg TABLET PO SCH ×4 (07:58→21:04)
[2021-02-22] MEDS: Furosemide 40 MG TABLET PO SCH (07:59)
[2021-02-22] MEDS: Simethicone 80 MG TAB.CHEW PO PRN ×2 (07:59→16:04)
[2021-02-22] MEDS: *HR* Enoxaparin 30 MG/0.3 ML SYRINGE SQ SCH ×2 (07:59→21:04)
[2021-02-22] MEDS: Cyanocobalamin (B-12) 1,000 MCG TABLET PO SCH (16:04)
[2021-02-22] MEDS: QUEtiapine Fumarate 25 MG TABLET PO PRN (21:05)
[2021-02-23] MEDS: Simethicone 80 MG TAB.CHEW PO PRN ×2 (06:31→16:55)
[2021-02-23] MEDS: DilTIAZem CD (24hr) 240 MG CAP.ER.24H PO SCH (08:10)
[2021-02-23] MEDS: Cholecalciferol (D-3) 1,000 UNIT (25MCG) TABLET PO SCH (08:10)
[2021-02-23] MEDS: Gabapentin 300 MG CAPSULE PO SCH ×3 (08:10→21:58)
[2021-02-23] MEDS: Furosemide 40 MG TABLET PO SCH (08:10)
[2021-02-23] MEDS: *HR* HYDROcodone/Acet 7.5/325 mg TABLET PO SCH ×4 (08:10→21:58)
[2021-02-23] MEDS: *HR* Enoxaparin 30 MG/0.3 ML SYRINGE SQ SCH ×2 (08:10→21:57)
[2021-02-24] MEDS: *HR* HYDROcodone/Acet 5/325 mg TABLET PO PRN (04:40)
[2021-02-24] MEDS: *HR* HYDROcodone/Acet 7.5/325 mg TABLET PO SCH ×4 (09:45→20:02)
[2021-02-24] MEDS: DilTIAZem CD (24hr) 240 MG CAP.ER.24H PO SCH (09:45)
[2021-02-24] MEDS: Cholecalciferol (D-3) 1,000 UNIT (25MCG) TABLET PO SCH (09:45)
[2021-02-24] MEDS: *HR* Enoxaparin 30 MG/0.3 ML SYRINGE SQ SCH ×2 (09:45→20:03)
[2021-02-24] MEDS: Furosemide 40 MG TABLET PO SCH (09:45)
[2021-02-24] MEDS: Gabapentin 300 MG CAPSULE PO SCH ×3 (09:45→20:02)
[2021-02-24] MEDS ORDERED: ALPRAZolam 0.25 MG TABLET PO ONE (14:23)
[2021-02-24] MEDS: Cyanocobalamin (B-12) 1,000 MCG TABLET PO SCH (15:35)
[2021-02-24] MEDS: Simethicone 80 MG TAB.CHEW PO PRN (15:38)
[2021-02-25] MEDS: *HR* HYDROcodone/Acet 5/325 mg TABLET PO PRN (00:41)
[2021-02-25] MEDS: Simethicone 80 MG TAB.CHEW PO PRN (05:48)
[2021-02-25] MEDS: *HR* Enoxaparin 30 MG/0.3 ML SYRINGE SQ SCH ×2 (08:07→21:38)
[2021-02-25] MEDS: Gabapentin 300 MG CAPSULE PO SCH ×3 (08:09→21:39)
[2021-02-25] MEDS: Furosemide 40 MG TABLET PO SCH (08:09)
[2021-02-25] MEDS: *HR* HYDROcodone/Acet 7.5/325 mg TABLET PO SCH ×4 (08:09→21:39)
[2021-02-25] MEDS: Cholecalciferol (D-3) 1,000 UNIT (25MCG) TABLET PO SCH (08:09)
[2021-02-25] MEDS: DilTIAZem CD (24hr) 240 MG CAP.ER.24H PO SCH (08:10)
[2021-02-26 05:18] LABS: Basophils % 0.2 %; Eosinophils # 0.1 K/mcL (0.0-0.6); Eosinophils % 1.7 %; Hematocrit 28.1 % (35.3-44.9); Hemoglobin 8.4 g/dL (11.5-15.4); Immature Granulocytes % 0.3 % (0-4); Lymphocytes # 1.3 K/mcL (0.6-4.6); Lymphocytes % 21.2 %; Mean Corpuscular HGB Conc 29.9 g/dL (31.6-35.5); Mean Corpuscular Hemoglobin 27.1 pg (28.0-33.3); Mean Corpuscular Volume 90.6 fL (83.0-100.0); Mean Platelet Volume 8.7 fL (9.4-12.4); Monocytes # 0.5 K/mcL (0.0-1.3); Monocytes % 8.8 %; Neutrophils # 4.1 K/mcL (1.6-8.9); Platelet Count 437 K/mcL (140-400); Red Cell Distribution Width 14.5 % (11.5-14.5); Segmented Neutrophils % 67.8 %
[2021-02-26 05:32] LABS: BUN/Creatinine Ratio 21 (6-26); Blood Urea Nitrogen 12 mg/dL (8-23); Calcium 8.4 mg/dL (8.6-10.3); Carbon Dioxide 34 mEq/L (23-29); Chloride 96 mEq/L (98-107); Glucose 105 mg/dL (70-105); Magnesium 1.8 mg/dL (1.6-2.6); Osmolality,Calculated 278 (280-300); Potassium 3.6 mEq/L (3.5-5.1); Sodium 134 mEq/L (136-145); eGFR For African Americans > 60 (> 60); eGFR For Non-African Americans > 60 (> 60)
[2021-02-26] MEDS: *HR* HYDROcodone/Acet 7.5/325 mg TABLET PO SCH ×4 (06:59→21:09)
[2021-02-26] MEDS: Simethicone 80 MG TAB.CHEW PO PRN (06:59)
[2021-02-26] MEDS: *HR* Enoxaparin 30 MG/0.3 ML SYRINGE SQ SCH ×2 (08:57→21:10)
[2021-02-26] MEDS: Cholecalciferol (D-3) 1,000 UNIT (25MCG) TABLET PO SCH (08:58)
[2021-02-26] MEDS: DilTIAZem CD (24hr) 240 MG CAP.ER.24H PO SCH (08:58)
[2021-02-26] MEDS: Furosemide 40 MG TABLET PO SCH (08:58)
[2021-02-26] MEDS: Gabapentin 300 MG CAPSULE PO SCH ×3 (08:58→21:11)
[2021-02-26] MEDS: Cyanocobalamin (B-12) 1,000 MCG TABLET PO SCH (16:06)
[2021-02-26] MEDS: QUEtiapine Fumarate 25 MG TABLET PO PRN (21:26)
[2021-02-27 05:35] LABS: Basophils % 0.3 %; Eosinophils # 0.1 K/mcL (0.0-0.6); Eosinophils % 2.3 %; Hematocrit 28.6 % (35.3-44.9); Hemoglobin 8.4 g/dL (11.5-15.4); Immature Granulocytes % 0.3 % (0-4); Lymphocytes # 1.2 K/mcL (0.6-4.6); Lymphocytes % 20.3 %; Mean Corpuscular HGB Conc 29.4 g/dL (31.6-35.5); Mean Corpuscular Hemoglobin 26.5 pg (28.0-33.3); Mean Corpuscular Volume 90.2 fL (83.0-100.0); Mean Platelet Volume 8.9 fL (9.4-12.4); Monocytes # 0.5 K/mcL (0.0-1.3); Monocytes % 8.8 %; Neutrophils # 4.1 K/mcL (1.6-8.9); Platelet Count 419 K/mcL (140-400); Red Blood Count 3.17 M/mcL (3.82-4.97); Red Cell Distribution Width 14.5 % (11.5-14.5)
[2021-02-27 05:50] LABS: BUN/Creatinine Ratio 15 (6-26); Blood Urea Nitrogen 9 mg/dL (8-23); Carbon Dioxide 33 mEq/L (23-29); Chloride 96 mEq/L (98-107); Glucose 104 mg/dL (70-105); Magnesium 1.9 mg/dL (1.6-2.6); Osmolality,Calculated 279 (280-300); Potassium 3.4 mEq/L (3.5-5.1); Sodium 135 mEq/L (136-145); eGFR For African Americans > 60 (> 60); eGFR For Non-African Americans > 60 (> 60)
[2021-02-27 06:04] LABS: % Iron Saturation 7 % (15-50); Iron 26 mcg/dL (50-170); Transferrin 270 mg/dL (203-362)
[2021-02-27 06:12] LABS: Ferritin 48 ng/mL (10-120)
[2021-02-27 06:17] LABS: Folate 4.7 ng/mL (3.0-16.0)
[2021-02-27] MEDS: Furosemide 40 MG TABLET PO SCH (08:31)
[2021-02-27] MEDS: Cholecalciferol (D-3) 1,000 UNIT (25MCG) TABLET PO SCH (08:31)
[2021-02-27] MEDS: Simethicone 80 MG TAB.CHEW PO PRN (08:31)
[2021-02-27] MEDS: *HR* HYDROcodone/Acet 7.5/325 mg TABLET PO SCH ×4 (08:32→20:48)
[2021-02-27] MEDS: DilTIAZem CD (24hr) 240 MG CAP.ER.24H PO SCH (08:32)
[2021-02-27] MEDS: Gabapentin 300 MG CAPSULE PO SCH ×3 (08:32→20:48)
[2021-02-27] MEDS: *HR* Enoxaparin 30 MG/0.3 ML SYRINGE SQ SCH ×2 (08:33→20:47)
[2021-02-27] MEDS: Iron Sucrose Complex 250 MG in 0.9 % Sodium Chloride 250 ML IVPB SCH (10:36)
[2021-02-27] MEDS: QUEtiapine Fumarate 25 MG TABLET PO PRN (20:49)
[2021-02-28] MEDS: Simethicone 80 MG TAB.CHEW PO PRN (05:14)
[2021-02-28] MEDS: *HR* HYDROcodone/Acet 5/325 mg TABLET PO PRN ×2 (05:15→22:18)
[2021-02-28 05:25] LABS: BUN/Creatinine Ratio 13 (6-26); Blood Urea Nitrogen 7 mg/dL (8-23); Calcium 9.1 mg/dL (8.6-10.3); Carbon Dioxide 30 mEq/L (23-29); Chloride 98 mEq/L (98-107); Glucose 95 mg/dL (70-105); Magnesium 1.9 mg/dL (1.6-2.6); Osmolality,Calculated 278 (280-300); Sodium 135 mEq/L (136-145); eGFR For African Americans > 60 (> 60); eGFR For Non-African Americans > 60 (> 60)
[2021-02-28 05:30] LABS: Basophils % 0.5 %; Eosinophils # 0.1 K/mcL (0.0-0.6); Eosinophils % 2.1 %; Hematocrit 27.7 % (35.3-44.9); Hemoglobin 8.4 g/dL (11.5-15.4); Immature Granulocytes % 0.3 % (0-4); Lymphocytes # 1.1 K/mcL (0.6-4.6); Lymphocytes % 19.1 %; Mean Corpuscular HGB Conc 30.3 g/dL (31.6-35.5); Mean Corpuscular Hemoglobin 27.5 pg (28.0-33.3); Mean Corpuscular Volume 90.8 fL (83.0-100.0); Mean Platelet Volume 8.9 fL (9.4-12.4); Monocytes # 0.5 K/mcL (0.0-1.3); Monocytes % 8.8 %; Platelet Count 412 K/mcL (140-400); Red Blood Count 3.05 M/mcL (3.82-4.97); Red Cell Distribution Width 14.5 % (11.5-14.5); Segmented Neutrophils % 69.2 %; White Blood Count 5.8 K/mcL (4.3-11.1)
[2021-02-28] MEDS: *HR* HYDROcodone/Acet 7.5/325 mg TABLET PO SCH ×4 (09:43→22:19)
[2021-02-28] MEDS: Cholecalciferol (D-3) 1,000 UNIT (25MCG) TABLET PO SCH (09:44)
[2021-02-28] MEDS: Furosemide 40 MG TABLET PO SCH (09:44)
[2021-02-28] MEDS: DilTIAZem CD (24hr) 240 MG CAP.ER.24H PO SCH (09:44)
[2021-02-28] MEDS: Gabapentin 300 MG CAPSULE PO SCH ×3 (09:44→22:18)
[2021-02-28] MEDS: *HR* Enoxaparin 30 MG/0.3 ML SYRINGE SQ SCH ×2 (09:44→22:19)
[2021-02-28] MEDS: Iron Sucrose Complex 250 MG in 0.9 % Sodium Chloride 250 ML IVPB SCH (11:57)
[2021-02-28] MEDS ORDERED: Isovue-370 500 ML BOTTLE IVP ONE (15:02)
[2021-02-28] MEDS: Cyanocobalamin (B-12) 1,000 MCG TABLET PO SCH (15:03)
[2021-02-28] MEDS: QUEtiapine Fumarate 25 MG TABLET PO PRN (22:18)
[2021-03-01 06:13] LABS: Basophils % 0.2 %; Eosinophils # 0.2 K/mcL (0.0-0.6); Eosinophils % 2.8 %; Hemoglobin 8.4 g/dL (11.5-15.4); Immature Granulocytes % 0.2 % (0-4); Lymphocytes # 1.2 K/mcL (0.6-4.6); Lymphocytes % 20.4 %; Mean Corpuscular Hemoglobin 27.4 pg (28.0-33.3); Mean Corpuscular Volume 91.2 fL (83.0-100.0); Mean Platelet Volume 8.6 fL (9.4-12.4); Monocytes # 0.5 K/mcL (0.0-1.3); Monocytes % 8.8 %; Neutrophils # 3.8 K/mcL (1.6-8.9); Platelet Count 365 K/mcL (140-400); Red Blood Count 3.07 M/mcL (3.82-4.97); Red Cell Distribution Width 14.5 % (11.5-14.5); Segmented Neutrophils % 67.6 %; White Blood Count 5.7 K/mcL (4.3-11.1)
[2021-03-01 06:44] LABS: BUN/Creatinine Ratio 14 (6-26); Blood Urea Nitrogen 7 mg/dL (8-23); Calcium 8.4 mg/dL (8.6-10.3); Carbon Dioxide 33 mEq/L (23-29); Chloride 97 mEq/L (98-107); Glucose 95 mg/dL (70-105); Magnesium 1.7 mg/dL (1.6-2.6); Osmolality,Calculated 280 (280-300); Potassium 3.8 mEq/L (3.5-5.1); Sodium 136 mEq/L (136-145); eGFR For African Americans > 60 (> 60); eGFR For Non-African Americans > 60 (> 60)
[2021-03-01] MEDS: Gabapentin 300 MG CAPSULE PO SCH ×3 (09:48→20:59)
[2021-03-01] MEDS: Cholecalciferol (D-3) 1,000 UNIT (25MCG) TABLET PO SCH (09:48)
[2021-03-01] MEDS: DilTIAZem CD (24hr) 240 MG CAP.ER.24H PO SCH (09:48)
[2021-03-01] MEDS: *HR* HYDROcodone/Acet 7.5/325 mg TABLET PO SCH ×4 (09:48→21:00)
[2021-03-01] MEDS: Furosemide 40 MG TABLET PO SCH (09:48)
[2021-03-01] MEDS: *HR* Enoxaparin 30 MG/0.3 ML SYRINGE SQ SCH ×2 (09:49→20:59)
[2021-03-01] MEDS: QUEtiapine Fumarate 25 MG TABLET PO PRN (20:59)
[2021-03-02 05:01] LABS: Basophils % 0.5 %; Eosinophils # 0.1 K/mcL (0.0-0.6); Eosinophils % 2.1 %; Hematocrit 30.6 % (35.3-44.9); Hemoglobin 8.9 g/dL (11.5-15.4); Immature Granulocytes % 0.5 % (0-4); Lymphocytes # 1.4 K/mcL (0.6-4.6); Lymphocytes % 20.7 %; Mean Corpuscular HGB Conc 29.1 g/dL (31.6-35.5); Mean Corpuscular Hemoglobin 26.6 pg (28.0-33.3); Mean Corpuscular Volume 91.3 fL (83.0-100.0); Mean Platelet Volume 8.7 fL (9.4-12.4); Monocytes # 0.6 K/mcL (0.0-1.3); Monocytes % 8.4 %; Neutrophils # 4.4 K/mcL (1.6-8.9); Platelet Count 394 K/mcL (140-400); Red Blood Count 3.35 M/mcL (3.82-4.97); Red Cell Distribution Width 14.6 % (11.5-14.5); Segmented Neutrophils % 67.8 %; White Blood Count 6.5 K/mcL (4.3-11.1)
[2021-03-02 05:15] LABS: BUN/Creatinine Ratio 17 (6-26); Blood Urea Nitrogen 10 mg/dL (8-23); Calcium 8.5 mg/dL (8.6-10.3); Carbon Dioxide 34 mEq/L (23-29); Chloride 97 mEq/L (98-107); Glucose 103 mg/dL (70-105); Magnesium 1.8 mg/dL (1.6-2.6); Osmolality,Calculated 281 (280-300); Potassium 3.7 mEq/L (3.5-5.1); Sodium 136 mEq/L (136-145); eGFR For African Americans > 60 (> 60); eGFR For Non-African Americans > 60 (> 60)
[2021-03-02] MEDS: DilTIAZem CD (24hr) 240 MG CAP.ER.24H PO SCH (08:30)
[2021-03-02] MEDS: Gabapentin 300 MG CAPSULE PO SCH ×3 (08:30→20:59)
[2021-03-02] MEDS: *HR* Enoxaparin 30 MG/0.3 ML SYRINGE SQ SCH ×2 (08:30→20:59)
[2021-03-02] MEDS: Cholecalciferol (D-3) 1,000 UNIT (25MCG) TABLET PO SCH (08:30)
[2021-03-02] MEDS: Furosemide 40 MG TABLET PO SCH (08:30)
[2021-03-02] MEDS: *HR* HYDROcodone/Acet 7.5/325 mg TABLET PO SCH ×4 (08:30→20:58)
[2021-03-02] MEDS: Cyanocobalamin (B-12) 1,000 MCG TABLET PO SCH (14:27)
[2021-03-03] MEDS: *HR* HYDROcodone/Acet 5/325 mg TABLET PO PRN (04:27)
[2021-03-03 04:33] LABS: Basophils % 0.5 %; Eosinophils # 0.2 K/mcL (0.0-0.6); Hematocrit 30.8 % (35.3-44.9); Hemoglobin 9.4 g/dL (11.5-15.4); Immature Granulocytes % 0.5 % (0-4); Lymphocytes # 1.4 K/mcL (0.6-4.6); Lymphocytes % 22.1 %; Mean Corpuscular HGB Conc 30.5 g/dL (31.6-35.5); Mean Corpuscular Hemoglobin 27.7 pg (28.0-33.3); Mean Corpuscular Volume 90.9 fL (83.0-100.0); Mean Platelet Volume 8.6 fL (9.4-12.4); Monocytes # 0.5 K/mcL (0.0-1.3); Monocytes % 7.2 %; Neutrophils # 4.2 K/mcL (1.6-8.9); Platelet Count 394 K/mcL (140-400); Red Blood Count 3.39 M/mcL (3.82-4.97); Red Cell Distribution Width 14.6 % (11.5-14.5); Segmented Neutrophils % 66.7 %; White Blood Count 6.3 K/mcL (4.3-11.1)
[2021-03-03 04:52] LABS: BUN/Creatinine Ratio 12 (6-26); Blood Urea Nitrogen 8 mg/dL (8-23); Calcium 8.9 mg/dL (8.6-10.3); Carbon Dioxide 34 mEq/L (23-29); Chloride 97 mEq/L (98-107); Glucose 98 mg/dL (70-105); Magnesium 1.8 mg/dL (1.6-2.6); Osmolality,Calculated 280 (280-300); Potassium 3.8 mEq/L (3.5-5.1); Sodium 136 mEq/L (136-145); eGFR For African Americans > 60 (> 60); eGFR For Non-African Americans > 60 (> 60)
[2021-03-03] MEDS: DilTIAZem CD (24hr) 240 MG CAP.ER.24H PO SCH (07:55)
[2021-03-03] MEDS: *HR* HYDROcodone/Acet 7.5/325 mg TABLET PO SCH ×4 (07:55→21:14)
[2021-03-03] MEDS: Furosemide 40 MG TABLET PO SCH (07:55)
[2021-03-03] MEDS: Cholecalciferol (D-3) 1,000 UNIT (25MCG) TABLET PO SCH (07:55)
[2021-03-03] MEDS: Gabapentin 300 MG CAPSULE PO SCH ×3 (07:55→21:15)
[2021-03-03] MEDS: *HR* Enoxaparin 30 MG/0.3 ML SYRINGE SQ SCH ×2 (07:56→21:15)
[2021-03-04] MEDS: *HR* HYDROcodone/Acet 5/325 mg TABLET PO PRN (01:24)
[2021-03-04 05:19] LABS: Basophils % 0.3 %; Eosinophils # 0.2 K/mcL (0.0-0.6); Eosinophils % 2.3 %; Hematocrit 30.5 % (35.3-44.9); Hemoglobin 9.1 g/dL (11.5-15.4); Immature Granulocytes % 0.6 % (0-4); Lymphocytes # 1.4 K/mcL (0.6-4.6); Lymphocytes % 20.2 %; Mean Corpuscular HGB Conc 29.8 g/dL (31.6-35.5); Mean Corpuscular Hemoglobin 27.1 pg (28.0-33.3); Mean Corpuscular Volume 90.8 fL (83.0-100.0); Mean Platelet Volume 8.6 fL (9.4-12.4); Monocytes # 0.5 K/mcL (0.0-1.3); Monocytes % 6.9 %; Platelet Count 414 K/mcL (140-400); Red Blood Count 3.36 M/mcL (3.82-4.97); Red Cell Distribution Width 14.7 % (11.5-14.5); Segmented Neutrophils % 69.7 %; White Blood Count 7.1 K/mcL (4.3-11.1)
[2021-03-04 05:35] LABS: BUN/Creatinine Ratio 14 (6-26); Blood Urea Nitrogen 8 mg/dL (8-23); Calcium 8.5 mg/dL (8.6-10.3); Carbon Dioxide 32 mEq/L (23-29); Chloride 96 mEq/L (98-107); Glucose 101 mg/dL (70-105); Magnesium 1.8 mg/dL (1.6-2.6); Osmolality,Calculated 278 (280-300); Potassium 4.1 mEq/L (3.5-5.1); Sodium 135 mEq/L (136-145); eGFR For African Americans > 60 (> 60); eGFR For Non-African Americans > 60 (> 60)
[2021-03-04] MEDS: Furosemide 40 MG TABLET PO SCH (08:30)
[2021-03-04] MEDS: Gabapentin 300 MG CAPSULE PO SCH ×3 (08:30→21:16)
[2021-03-04] MEDS: Cholecalciferol (D-3) 1,000 UNIT (25MCG) TABLET PO SCH (08:30)
[2021-03-04] MEDS: DilTIAZem CD (24hr) 240 MG CAP.ER.24H PO SCH (08:30)
[2021-03-04] MEDS: *HR* HYDROcodone/Acet 7.5/325 mg TABLET PO SCH ×4 (08:31→21:16)
[2021-03-04] MEDS: *HR* Enoxaparin 30 MG/0.3 ML SYRINGE SQ SCH ×2 (08:31→21:15)
[2021-03-04] MEDS ORDERED: *HR* HYDROcodone/Acet 5/325 mg TABLET PO PRN (12:52)
[2021-03-04] MEDS: Cyanocobalamin (B-12) 1,000 MCG TABLET PO SCH (15:46)
[2021-03-04] MEDS: QUEtiapine Fumarate 25 MG TABLET PO PRN (21:17)
[2021-03-05] MEDS: DilTIAZem CD (24hr) 240 MG CAP.ER.24H PO SCH (08:55)
[2021-03-05] MEDS: Cholecalciferol (D-3) 1,000 UNIT (25MCG) TABLET PO SCH (08:55)
[2021-03-05] MEDS: Gabapentin 300 MG CAPSULE PO SCH ×2 (08:55→17:13)
[2021-03-05] MEDS: Furosemide 40 MG TABLET PO SCH (08:55)
[2021-03-05] MEDS: *HR* HYDROcodone/Acet 7.5/325 mg TABLET PO SCH ×3 (08:55→17:13)
[2021-03-05] MEDS: *HR* Enoxaparin 30 MG/0.3 ML SYRINGE SQ SCH (08:55)
[2021-03-05 09:07] LABS: Bacteria,Urine Few per hpf (None-Few); Bilirubin,Urine Negative (Negative); Blood,Urine Negative (Negative); Clarity,Urine Turbid (Clear); Color,Urine Yellow (Yellow); Glucose,Urine (UA) Normal (Normal); Hyaline Casts,Urine Few per lpf (None Seen); Ketones,Urine Negative (Negative); Leukocyte Esterase,Urine Negative (Negative); Mucus,Urine Few per lpf (None-Few); Nitrite,Urine Negative (Negative); Protein,Urine Trace mg/dL (Neg-Trace); RBC,Urine 0-3 per hpf (0-3); Squamous Epithelial Cell,Urine Moderate per hpf (None-Few); WBC,Urine 0-3 per hpf (0-3)
[2021-03-05 11:57] VITALS: BP 129/76; PULSE 84; TEMP 97.7; O2SAT 96
[2021-03-05 15:37] LABS: Influenza A PCR Negative (Negative); Influenza B PCR Negative (Negative); Resp. Syncytial Virus PCR Negative (Negative)
[2021-03-05 15:38] LABS: SARS-CoV-2 by PCR (In House) Negative (Negative)
== END 2021-03-05 17:32 | DRG 481 ==
LOC: EMEROOARM 07:10 → 4WAOSI 07:10 → SUATTDRO 12:05 → 4WAOSI 12:53 → SUATTDRO 02-02 15:24
PROVIDERS: ADMIT General Practice; ATTEND Internal Medicine